=== PATIENT | male | born 1945 | race Caucasian/White ===

== ENCOUNTER 2018-09-22 11:30 | Inpatient (IN) | payer MEDICARE, OTHER ==
--- NOTE | 2018-09-22 11:59 | ER Document Report ---
ED Dizziness/Weakness - General Chief Complaint: General Weakness Stated Complaint: FALL/WEAKNESS Time Seen by Provider: 09/22/18 11:46 Mode of Arrival: Medic Information source: Patient, Relative TRAVEL OUTSIDE OF THE [place] IN LAST 30 DAYS: No - HPI Patient complains to provider of: Weakness Onset: Other - This 73-year-old male with no known medical problems the presents for evaluation of profound weakness in the setting of drinking a pint of bourbon every day for the last 3 months after his . His family friend had last seen him around [facility] at which time he was able to ambulate but he has been unable to get up for what he believes his last month as he continues to drink. Says that he wants help and stop drinking. He is never tried to drink before and had been abstinent of alcohol for many many years, he is a daily cigarette smoker and denies any other drug use. Denies any other injuries recent falls or trauma. Has not been seen by in a long time. - Related Data Allergies/Adverse Reactions: No Known Allergies Allergy (Unverified 09/22/18 11:33) Past Medical History - General Information source: Patient, Relative Cannot obtain history due to: Altered mental status - Social History Smoking Status: Current Every Day Smoker Smoking Education Provided: Yes Frequency of alcohol use: Heavy Drug Abuse: None Lives with: Alone Family History: None Review of Systems - Review of Systems -: Yes All other systems reviewed and negative Physical Exam - Vital signs Vitals: Temp Pulse Resp BP Pulse Ox 98.1 F 102 H 28 H 78/46 L 93 09/22/18 11:36 09/22/18 11:36 09/22/18 11:36 09/22/18 11:36 09/22/18 11:36 - General General appearance: Lethargic In distress: Moderate - HEENT Head: Normocephalic Eyes: Normal Conjunctiva: Normal Cornea: Normal Extraocular movements intact: Yes Eyelashes: Normal Pupils: PERRL - Respiratory Respiratory status: No respiratory distress Chest status: Nontender Breath sounds: Normal Chest palpation: Normal - Cardiovascular Rhythm: Regular Heart sounds: Normal auscultation Murmur: No - Abdominal Inspection: Normal Distension: No distension Tenderness: Nontender - Genitourinary Tenderness: Other - Marked erythema and denuded skin over the scrotum Scrotum: Redness - Back Back: Normal - Extremities General upper extremity: Other - Frail diminished extremities General lower extremity: Other - Frail wasted musculature over the extremities - Neurological Neuro grossly intact: Yes Cognition: Normal, Confused Orientation: AAOx4 [place] Coma Scale Eye Opening: Spontaneous [place] Coma Scale Verbal: Confused [place] Coma Scale Motor: Obeys Commands [place] Coma Scale Total: 14 Speech: Normal Cranial nerves: Normal Cerebellar coordination: Normal - Psychological Associated symptoms: Normal affect, Normal mood Course - Re-evaluation Re-evalutation: This is 73-year-old man the presents for evaluation of profound weakness in the setting of daily alcohol use. On examination he is profoundly wasted, his extremities are frail, diminutive and weak. He has almost entire loss of the scan underlying his scrotum as well as his b uttocks and hips. On arrival he is tachycardic with a blood pressure which is marginal. He is a daily alcoholic, his most recent drink was a couple of hours ago. I do not believe that he is currently demonstrating signs of acute withdrawal. Because of his current presentation have concern for rhabdomyolysis, sepsis, dehydration, among other issues. We will plan for broad workup. Patient's labs demonstrate what appears to be alcoholic hepatitis with an elevated T bili as well as other LFTs. Patient also has a markedly elevated BUN and elevated lactate, his lactate is likely elevated as a result of his liver injury. He is received 2 L of fluids with improvement in his blood pressure, he does not have an obvious infection at this time as such I do not believe this represents sepsis despite the elevated lactate and elevated heart rate. Have deferred antibiotics at this time. Reassess this patient again, he is caked in stool, his stool is runny. He is slightly confused. He desires to abstain from alcohol moving forward and says that if he is able to achieve sobriety that he will abstain from alcohol entirely moving forward. Believe that he will likely require close monitoring for probable administration of benzodiazepine. We will initiate treatment with vitamins. Have contacted on-call hospitalist for such he who agrees to admit this patient, will plan to admit patient to the [facility] for continued monitoring reassessment administration of fluids. Have drawn a repeated lactate. - Vital Signs Vital signs: Temp Pulse Resp BP Pulse Ox 98.1 F 102 H 20 107/65 94 09/22/18 11:36 09/22/18 11:36 09/22/18 14:00 09/22/18 14:00 09/22/18 13:02 - Laboratory Result Diagrams: 09/22/18 12:30 09/22/18 12:30 Laboratory results interpreted by me: 09/22/18 09/22/18 09/22/18 11:52 12:10 12:30 MCV 99 H MCH 34.0 H RDW 15.4 H Plt Count 91 L Seg Neutrophils % 80.3 H Lymphocytes % 9.6 L Chloride Carbon Dioxide BUN Glucose POC Glucose 131 H Lactic Acid Total Bilirubin Direct Bilirubin AST ALT Alkaline Phosphatase Urine Protein 100 H Urine Ketones 20 H Urine Blood SMALL H Urine Bilirubin SMALL H Urine Urobilinogen 4.0 H 09/22/18 09/22/18 12:30 12:30 MCV MCH RDW Plt Count Seg Neutrophils % Lymphocytes % Chloride 97 L Carbon Dioxide 20 L BUN 40 H Glucose 128 H POC Glucose Lactic Acid 3.3 H Total Bilirubin 7.3 H Direct Bilirubin 5.5 H AST 786 H ALT 235 H Alkaline Phosphatase 218 H Urine Protein Urine Ketones Urine Blood Urine Bilirubin Urine Urobilinogen Critical Care Note - Critical Care Note Total time excluding time spent on procedures (mins): 35 Discharge - Discharge Clinical Impression: Dehydration, Alcoholism, Confusion, Weakness Malnutrition Qualifiers: Malnutrition type: unspecified type Qualified Code(s): E46 - Unspecified protein-calorie malnutrition Condition: Stable Disposition: ADMITTED INPATIENT Admitting Provider: Hospitalist Unit Admitted: [facility]
[2018-09-22] MEDS: NORMAL SALINE 1000 ML 1,000 ML IV PRN ×2 (12:10→13:11)
[2018-09-22 12:36] LABS: APPEARANCE,URINE CLEAR; BILIRUBIN,URINE SMALL (NEGATIVE); COLOR,URINE AMBER; GLUCOSE, URINE NEGATIVE (NEGATIVE); KETONES,URINE 20 mg/dL (NEGATIVE); LEUKOCYTE ESTERASE,URINE NEGATIVE (NEGATIVE); NITRITE,URINE NEGATIVE (NEGATIVE); PROTEIN,URINE 100 mg/dL (NEGATIVE); URINE SPECIFIC GRAVITY 1.025
[2018-09-22 13:01] LABS: VENOUS BLOOD BASE EXCESS -1.7 mmol/L; VENOUS BLOOD HCO3 23.7 mmol/L (20-32); VENOUS BLOOD PCO2 42.5 mmHg (35-63); VENOUS BLOOD PH 7.36 (7.30-7.42)
[2018-09-22 13:03] LABS: ABSOLUTE LYMPHOCYTES (AUTO) 0.8 10^3/uL (0.5-4.7); ABSOLUTE MONOCYTES (AUTO) 0.8 10^3/uL (0.1-1.4); ABSOLUTE NEUT (AUTO) 6.6 10^3/uL (1.7-8.2); BASOPHILS % (AUTO) 0.3 % (0-2); HEMATOCRIT 43.1 % (37.9-51.0); HEMOGLOBIN 14.9 g/dL (13.5-17.0); LYMPHOCYTES % (AUTO) 9.6 % (13-45); MEAN CORPUSCULAR HGB CONC 34.5 g/dL (32.0-36.0); MEAN CORPUSCULAR VOLUME 99 fl (80-97); MONOCYTES % (AUTO) 9.8 % (3-13); RED BLOOD COUNT 4.37 10^6/uL (4.35-5.55); RED CELL DISTRIBUTION WIDTH 15.4 % (11.5-14.0); SEGMENTED NEUTROPHILS % (AUTO) 80.3 % (42-78); TOTAL CELLS COUNTED % (AUTO) 100 %; WHITE BLOOD COUNT 8.2 10^3/uL (4.0-10.5)
[2018-09-22 13:07] LABS: PROTHROMBIN TIME 12.6 SEC (11.4-15.4)
[2018-09-22 13:18] LABS: ALANINE AMINOTRANSFERASE 235 U/L (21-72); ALBUMIN 3.5 g/dL (3.5-5.0); ALKALINE PHOSPHATASE 218 U/L (38-126); BILIRUBIN,DIRECT 5.5 mg/dL (0.0-0.4); BILIRUBIN,TOTAL 7.3 mg/dL (0.2-1.3); BLOOD UREA NITROGEN 40 mg/dL (7-20); CALCIUM 8.5 mg/dL (8.4-10.2); CARBON DIOXIDE 20 mmol/L (22-30); CHLORIDE 97 mmol/L (98-107); CREATINE KINASE 147 U/L (55-170); GLUCOSE 128 mg/dL (75-110); POTASSIUM 4.4 mmol/L (3.6-5.0); TOTAL PROTEIN 6.7 g/dL (6.3-8.2)
[2018-09-22 13:26] LABS: PLATELET COUNT 91 10^3/uL (150-450)
[2018-09-22 13:31] LABS: ASPARTATE AMINO TRANSFERASE 786 U/L (17-59)
--- NOTE | 2018-09-22 13:41 | RADIOLOGY REPORT (SQ) ---
EXAM DESCRIPTION: CHEST SINGLE VIEW COMPLETED DATE/TIME: 09/22/2018 1:13 pm REASON FOR STUDY: possible sepsis COMPARISON: None. EXAM PARAMETERS: NUMBER OF VIEWS: One view. TECHNIQUE: Single frontal radiographic view of the chest acquired. RADIATION DOSE: NA LIMITATIONS: None. FINDINGS: LUNGS AND PLEURA: Lungs are hyperinflated and hyperlucent from obstructive disease. Chron ic appearing blunting right lateral costophrenic sulcus. No acute infiltrates. No pleural effusion. No pneumothorax. MEDIASTINUM AND HILAR STRUCTURES: No masses. Contour normal. HEART AND VASCULAR STRUCTURES: Heart normal in size. Normal vasculature. BONES: No acute findings. HARDWARE: None in the chest. OTHER: No other significant finding. IMPRESSION: Obstructive lung disease. No acute findings TECHNICAL DOCUMENTATION: JOB ID: [id number] [employer]- All Rights Reserved Reading location - IP/workstation name: [facility]-[email or web address]
[2018-09-22 14:37] LABS: ANION GAP 20 (5-19)
[2018-09-22] MEDS ORDERED: ONDANSETRON 4 MG TAB.RAPDIS PO PRN (15:10)
[2018-09-22] MEDS ORDERED: LORAZEPAM INJ 2 MG/1 ML VIAL IV ONE (15:19)
[2018-09-22] MEDS ORDERED: ENOXAPARIN SODIUM INJ 30 MG/0.3 ML DISP.SYRIN SUBCUT ONE (16:00)
[2018-09-22] MEDS: DEXTROSE 5%-NORMAL SALINE 1,000 ML IV PRN (16:17)
--- NOTE | 2018-09-22 17:21 | EKG REPORT ---
SEVERITY:- NORMAL ECG - SINUS RHYTHM : Confirmed by: Main Delcid MD 22-Sep-2018 17:21:03
[2018-09-22] MEDS ORDERED: NORMAL SALINE 1000 ML 1,000 ML with POTASSIUM CHLORIDE 20 MEQ, MAGNESIUM SULFATE 8 MEQ,... IV SCH ×5 (18:00)
--- NOTE | 2018-09-22 18:08 | PDOC H&P ---
History of Present Illness Admission Date/PCP: 09/22/18 15:14 ARMINDA TOM MD Patient complains of: Profound weakness History of Present Illness: TRACIE ETIENNE is a 73 year old male whose only medical history is chronic obstructive pulmonary disease. He is currently a smoker. He has an albuterol inhaler for as needed use. Otherwise he is on no medications and has no other past medical history. His in April of this year. He has no children. His parents are and he has no surviving siblings. To cope he started drinking heavily. He drinks approximately 1/5 of whiskey daily. He reports that he has been getting weaker. He has lost weight. In fact when his friend came over to visit he was not even strong enough to get off the couch. He does not think he has had anything to eat in 4-5 days. Past Medical History Cardiac Medical History: Reports: None Pulmonary Medical History: Reports: Chronic Obstructive Pulmonary Disease (COPD) EENT Medical History: Reports: None Neurological Medical History: Reports: None Endocrine Medical History: Reports: None Renal/ Medical History: Reports: None Malignancy Medical History: Reports: None GI Medical History: Reports: None Musculoskeltal Medical History: Reports: None Skin Medical History: Reports: None Psychiatric Medical History: Reports: Tobacco Dependency Traumatic Medical History: Reports: None Hematology: Reports: None Infectious Medical History: Reports: None Past Surgical History Past Surgical History: Reports: None Social History Information Source: Patient Lives with: Alone Smoking Status: Current Every Day Smoker Frequency of Alcohol Use: Heavy Amount of Alcoholic Beverages Per Day: 1/5 of bourbon Hx Recreational Drug Use: No Drugs: None Hx Prescription Drug Abuse: No Past Social History Note: All of the patient's siblings have . He has no children and his in April. Family History Family History: CVA Parental Family History Reviewed: Yes - Father of a stroke mother natural causes Children Family History Reviewed: NA - He has no children Sibling(s) Family History Reviewed.: Yes - All 6 of his siblings have . He does not know the details of their medical history. Medication/Allergy Home Medications: Albuterol Sulfate [Proair HFA Inhalation Aerosol 8.5 gm MDI] 2 puff IH Q4HP PRN 09/22/18 Allergies/Adverse Reactions: No Known Allergies Allergy (Unverified 09/22/18 11:33) Review of Systems Constitutional: PRESENT: as per HPI, anorexia, weight loss. ABSENT: chills, fever(s), headache(s) Eyes: ABSENT: visual disturbances Ears: ABSENT: hearing changes Nose, Mouth, and Throat: ABSENT: headache(s), mouth pain, sore throat, vertigo Cardiovascular: ABSENT: chest pain, edema, orthropnea, palpitations Respiratory: ABSENT: dyspnea, hemoptysis, sputum Gastrointestinal: PRESENT: abdominal pain, diarrhea. ABSENT: bloating, coffee ground emesis, heartburn, hematochezia, melena, nausea, vomiting Genitourinary: ABSENT: dysuria, hematuria Musculoskeletal: ABSENT: back pain, joint swelling Integumentary: ABSENT: lesions, rash Neurological: PRESENT: weakness - Profound. ABSENT: abnormal speech, confusion Psychiatric: PRESENT: depression - Since his . Unfortunately he has not sought any treatment. Endocrine: ABSENT: cold intolerance, heat intolerance, polydipsia, polyphagia, polyuria Hematologic/Lymphatic: ABSENT: as per HPI, easy bleeding, easy bruising, lymphadenopathy, other Allergic/Immunologic: ABSENT: seasonal rhinorrhea Physical Exam Vital Signs: Temp Pulse Resp BP Pulse Ox 98.2 F 102 H 16 112/67 96 09/22/18 15:00 09/22/18 11:36 09/22/18 17:00 09/22/18 17:00 09/22/18 16:00 Intake & Output 09/21/18 09/22/18 09/23/18 06:59 06:59 06:59 Intake Total 1999 Balance 2000 Weight 40.37 kg General appearance: PRESENT: no acute distress, cooperative, thin, well- developed Head exam: PRESENT: atraumatic, normocephalic Eye exam: PRESENT: conjunctiva pale, EOMI, scleral icterus Ear exam: PRESENT: normal external ear exam Mouth exam: PRESENT: dry mucosa, neck supple, tongue midline Teeth exam: PRESENT: poor dentation Neck exam: ABSENT: carotid bruit, JVD, lymphadenopathy Respiratory exam: PRESENT: clear to auscultation kody, symmetrical, unlabored. ABSENT: accessory muscle use, rales, rhonchi, wheezes Cardiovascular exam: PRESENT: RRR, +S1, +S2 Pulses: PRESENT: normal radial pulses, normal dorsalis pedis pul Vascular exam: ABSENT: pallor GI/Abdominal exam: PRESENT: normal bowel sounds, soft, tenderness - Right upper quadrant. ABSENT: distended, guarding Rectal exam: PRESENT: deferred Extremities exam: ABSENT: pedal edema Musculoskeletal exam: PRESENT: other - Marked loss of muscle mass Neurological exam: PRESENT: alert, awake, oriented to person, oriented to place, oriented to time, oriented to situation, CN II-XII grossly intact Psychiatric exam: PRESENT: appropriate affect. ABSENT: agitated, anxious, unusual affect Focused psych exam: ABSENT: restlessness Skin exam: PRESENT: jaundice Results Laboratory Results: 09/22/18 12:30 09/22/18 12:30 09/22/18 09/22/18 09/22/18 12:10 12:30 12:30 WBC 8.2 RBC 4.37 Hgb 14.9 Hct 43.1 MCV 99 H MCH 34.0 H MCHC 34.5 RDW 15.4 H Plt Count 91 L Seg Neutrophils % 80.3 H Lymphocytes % 9.6 L Monocytes % 9.8 Eosinophils % 0.0 Basophils % 0.3 Absolute Neutrophils 6.6 Absolute Lymphocytes 0.8 Absolute Monocytes 0.8 Absolute Eosinophils 0.0 Absolute Basophils 0.0 VBG pH VBG pCO2 VBG HCO3 VBG Base Excess Sodium 137.0 Potassium 4.4 Chloride 97 L Carbon Dioxide 20 L Anion Gap 20 H BUN 40 H Creatinine 0.75 Est GFR ( Amer) > 60 Est GFR (Non-Af Amer) > 60 Glucose 128 H Lactic Acid Calcium 8.5 Total Bilirubin 7.3 H AST 786 H ALT 235 H Alkaline Phosphatase 218 H Total Protein 6.7 Albumin 3.5 Lipase Urine Color JESSICA Urine Appearance CLEAR Urine pH 6.0 Ur Specific [place] 1.025 Urine Protein 100 H Urine Glucose (UA) NEGATIVE Urine Ketones 20 H Urine Blood SMALL H Urine Nitrite NEGATIVE Ur Leukocyte Esterase NEGATIVE Urine WBC (Auto) 0 Urine RBC (Auto) 2 09/22/18 09/22/18 09/22/18 12:30 12:30 12:30 WBC RBC Hgb Hct MCV MCH MCHC RDW Plt Count Seg Neutrophils % Lymphocytes % Monocytes % Eosinophils % Basophils % Absolute Neutrophils Absolute Lymphocytes Absolute Monocytes Absolute Eosinophils Absolute Basophils VBG pH 7.36 VBG pCO2 42.5 VBG HCO3 23.7 VBG Base Excess -1.7 Sodium Potassium Chloride Carbon Dioxide Anion Gap BUN Creatinine Est GFR ( Amer) Est GFR (Non-Af Amer) Glucose Lactic Acid 3.3 H Calcium Total Bilirubin AST ALT Alkaline Phosphatase Total Protein Albumin Lipase 356.8 H Urine Color Urine Appearance Urine pH Ur Specific [place] Urine Protein Urine Glucose (UA) Urine Ketones Urine Blood Urine Nitrite Ur Leukocyte Esterase Urine WBC (Auto) Urine RBC (Auto) 09/22/18 16:47 WBC RBC Hgb Hct MCV MCH MCHC RDW Plt Count Seg Neutrophils % Lymphocytes % Monocytes % Eosinophils % Basophils % Absolute Neutrophils Absolute Lymphocytes Absolute Monocytes Absolute Eosinophils Absolute Basophils VBG pH VBG pCO2 VBG HCO3 VBG Base Excess Sodium Potassium Chloride Carbon Dioxide Anion Gap BUN Creatinine Est GFR ( Amer) Est GFR (Non-Af Amer) Glucose Lactic Acid 1.7 Calcium Total Bilirubin AST ALT Alkaline Phosphatase Total Protein Albumin Lipase Urine Color Urine Appearance Urine pH Ur Specific [place] Urine Protein Urine Glucose (UA) Urine Ketones Urine Blood Urine Nitrite Ur Leukocyte Esterase Urine WBC (Auto) Urine RBC (Auto) 09/22/18 12:30 Creatine Kinase 147 Impressions: Chest X-Ray 09/22/18 11:59 IMPRESSION: Obstructive lung disease. No acute findings Assessment & Plan - Diagnosis (1) Hepatitis, alcoholic Qualifiers: Ascites presence: without ascites Qualified Code(s): K70.10 - Alcoholic hepatitis without ascites Is this a current diagnosis for this admission?: Yes Plan: The patient has been drinking heavily since his . I will start him on the alcohol withdrawal protocol. He is also been very dehydrated and has not eaten. Once he is through this acute episode he would benefit from an antidepressant medication as well as counseling. (2) Dehydration Is this a current diagnosis for this admission?: Yes Plan: Initially the patient was hypotensive and tachycardic. He received several liters of fluid and appears to be stable. I will continue maintenance IV fluid. (3) Malnutrition Qualifiers: Malnutrition type: protein-calorie malnutrition Protein-calorie malnutrition severity: severe Qualified Code(s): E43 - Unspecified severe protein-calorie malnutrition Is this a current diagnosis for this admission?: Yes Plan: The patient's BMI is only 13.5. He is cachectic and displays marked loss of muscle mass. I will have the dietitian see the patient for recommendations for his diet. Because of his poor dentition we will start on soft mechanical diet. (5) Nicotine addiction Qualifiers: Nicotine product type: cigarettes Substance use status: uncomplicated Qualified Code(s): F17.210 - Nicotine dependence, cigarettes, uncomplicated Is this a current diagnosis for this admission?: Yes Plan: The patient currently smokes 1/2 pack of cigarettes daily. He does have mild history of chronic obstructive pulmonary disease however he reports that he has not needed his albuterol inhaler for some time. I will order a nicotine patch for the patient. - Time Time Spent: 50 to 70 Minutes Smoking Cessation Education: 3 to 10 minutes Anticipated discharge: Home - Inpatient Certification Based on my medical assessment, after consideration of the patient's comorbidities, presenting symptoms, or acuity I expect that the services needed warrant INPATIENT care.: Yes I certify that my determination is in accordance with my understanding of Medicare's requirements for reasonable and necessary INPATIENT services [42 CFR 412.3e].: Yes Medical Necessity: Need Close Monitoring Due to Risk of Patient Decompensation, Need For IV Fluids, Need for Nebulizer Therapy and Monitoring of Response, Risk of Complication if Not Cared For in Hospital Post Hospital Care: D/C [facility] [place] Documentation
[2018-09-22] MEDS ORDERED: MORPHINE SULFATE 10 MG/ML INJ IV ONE (19:00)
[2018-09-22] MEDS ORDERED: MORPHINE SULFATE 10 MG/ML INJ ONE (19:01)
[2018-09-22] MEDS: NICOTINE 14 MG/24 HR PATCH.TD24 TD SCH (20:48)
[2018-09-22] MEDS: LORAZEPAM 1 MG TABLET PO SCH (20:49)
[2018-09-22] MEDS ORDERED: FOLIC ACID 1 MG TABLET PO SCH (21:00)
[2018-09-22] MEDS ORDERED: DIAZEPAM 5 MG TABLET PO SCH (22:00)
[2018-09-22] MEDS ORDERED: [UNRECOGNIZED DRUG - REMARK] IV SCH ×4 (22:00)
[2018-09-23] MEDS: LORAZEPAM 1 MG TABLET PO SCH ×2 (02:30→09:04)
[2018-09-23] MEDS ORDERED: VANCOMYCIN HCL INJ 1000 MG VIAL IV PRN (03:35)
[2018-09-23] MEDS ORDERED: VANCOMYCIN HCL INJ 1000 MG VIAL ONE (03:50)
[2018-09-23] MEDS ORDERED: VANCOMYCIN HCL 1,000 MG in DEXTROSE 5%-WATER 250 ML IV ONE (04:00)
[2018-09-23 06:03] LABS: ABSOLUTE LYMPHOCYTES (AUTO) 0.8 10^3/uL (0.5-4.7); ABSOLUTE MONOCYTES (AUTO) 0.7 10^3/uL (0.1-1.4); ABSOLUTE NEUT (AUTO) 5.3 10^3/uL (1.7-8.2); ALANINE AMINOTRANSFERASE 178 U/L (21-72); ALBUMIN 2.6 g/dL (3.5-5.0); ALKALINE PHOSPHATASE 158 U/L (38-126); ANION GAP 13 (5-19); ASPARTATE AMINO TRANSFERASE 598 U/L (17-59); BASOPHILS % (AUTO) 0.3 % (0-2); BILIRUBIN,DIRECT 4.5 mg/dL (0.0-0.4); BLOOD UREA NITROGEN 28 mg/dL (7-20); CALCIUM 7.5 mg/dL (8.4-10.2); CARBON DIOXIDE 19 mmol/L (22-30); CHLORIDE 107 mmol/L (98-107); CHOLESTEROL 166.69 mg/dL (0-200); GLUCOSE 130 mg/dL (75-110); HEMATOCRIT 35.7 % (37.9-51.0); LIPASE 748.6 U/L (23-300); LYMPHOCYTES % (AUTO) 12.1 % (13-45); MEAN CORPUSCULAR HEMOGLOBIN 34.1 pg (27.0-33.4); MEAN CORPUSCULAR HGB CONC 34.8 g/dL (32.0-36.0); MEAN CORPUSCULAR VOLUME 98 fl (80-97); MONOCYTES % (AUTO) 10.2 % (3-13); PHOSPHORUS 1.8 mg/dL (2.5-4.5); POTASSIUM 3.7 mmol/L (3.6-5.0); RED BLOOD COUNT 3.64 10^6/uL (4.35-5.55); RED CELL DISTRIBUTION WIDTH 15.3 % (11.5-14.0); SEGMENTED NEUTROPHILS % (AUTO) 77.4 % (42-78); SODIUM 139.4 mmol/L (137-145); TOTAL CELLS COUNTED % (AUTO) 100 %; TOTAL PROTEIN 5.2 g/dL (6.3-8.2); TRIGLYCERIDES 262 mg/dL (<150); WHITE BLOOD COUNT 6.8 10^3/uL (4.0-10.5)
[2018-09-23 06:13] LABS: DIRECT LDL 109 mg/dL (<100)
[2018-09-23 06:18] LABS: VLDL CHOLESTEROL 52.4 mg/dL (10-31)
[2018-09-23 06:28] LABS: PLATELET COUNT 73 10^3/uL (150-450)
[2018-09-23 06:38] LABS: HEMOGLOBIN 12.4 g/dL (13.5-17.0)
[2018-09-23] MEDS: SILVER SULFADIAZINE 1% CREAM 400 GM TP PRN ×2 (09:57→17:50)
[2018-09-23] MEDS: NICOTINE 14 MG/24 HR PATCH.TD24 TD SCH (09:57)
[2018-09-23] MEDS: LIDOCAINE 4% TOPICAL SOLN 50 ML TOP PRN ×2 (09:59→17:59)
[2018-09-23] MEDS: CLOTRIMAZOLE/BETAMETHASONE DIP CREAM 15 GM TOP SCH ×2 (09:59→17:50)
[2018-09-23] MEDS ORDERED: ENOXAPARIN SODIUM INJ 30 MG/0.3 ML DISP.SYRIN SUBCUT SCH (10:00)
[2018-09-23] MEDS ORDERED: VANCOMYCIN HCL 1,000 MG in DEXTROSE 5%-WATER 250 ML IV SCH (10:00)
[2018-09-23] MEDS: DEXTROSE 5%-NORMAL SALINE 1,000 ML IV PRN (10:20)
[2018-09-23] MEDS ORDERED: DEXTROSE 5%-NORMAL SALINE 1,000 ML IV PRN (12:18)
[2018-09-23] MEDS ORDERED: LORAZEPAM 1 MG TABLET PO PRN (12:22)
--- NOTE | 2018-09-23 12:54 | PDOC PROGRESS REPORT ---
Subjective Progress Note for:: 09/23/18 Subjective:: Patient is somnolent today. Reason For Visit: ACUTE ALCOHOLIC HEPATITIS,DEHYDRATION Physical Exam Vital Signs: Temp Pulse Resp BP Pulse Ox 97.9 F 88 16 165/81 H 91 L 09/23/18 07:30 09/23/18 12:32 09/23/18 12:32 09/23/18 07:30 09/23/18 12:32 Intake & Output 09/22/18 09/23/18 09/24/18 06:59 06:59 06:59 Intake Total 3830 431.2 Output Total 500 650 Balance 3330 -218.8 Weight 45.4 kg General appearance: PRESENT: no acute distress, thin, other - Somnolent. ABSENT: well-nourished Head exam: PRESENT: atraumatic, normocephalic Respiratory exam: PRESENT: clear to auscultation kody - Anteriorly, symmetrical, unlabored. ABSENT: accessory muscle use, rales, rhonchi, wheezes Cardiovascular exam: PRESENT: RRR, +S1, +S2 GI/Abdominal exam: PRESENT: hypoactive bowel sounds, soft. ABSENT: distended, tenderness Musculoskeletal exam: PRESENT: other - Decreased muscle mass Neurological exam: ABSENT: awake Psychiatric exam: PRESENT: other - Somnolent Skin exam: PRESENT: pallor Results Laboratory Results: 09/23/18 05:11 09/23/18 05:11 09/22/18 09/22/18 09/22/18 12:30 12:30 12:30 WBC 8.2 RBC 4.37 Hgb 14.9 Hct 43.1 MCV 99 H MCH 34.0 H MCHC 34.5 RDW 15.4 H Plt Count 91 L Seg Neutrophils % 80.3 H Lymphocytes % 9.6 L Monocytes % 9.8 Eosinophils % 0.0 Basophils % 0.3 Absolute Neutrophils 6.6 Absolute Lymphocytes 0.8 Absolute Monocytes 0.8 Absolute Eosinophils 0.0 Absolute Basophils 0.0 VBG pH VBG pCO2 VBG HCO3 VBG Base Excess Sodium 137.0 Potassium 4.4 Chloride 97 L Carbon Dioxide 20 L Anion Gap 20 H BUN 40 H Creatinine 0.75 Est GFR ( Amer) > 60 Est GFR (Non-Af Amer) > 60 Glucose 128 H Lactic Acid 3.3 H Calcium 8.5 Phosphorus Magnesium Total Bilirubin 7.3 H AST 786 H ALT 235 H Alkaline Phosphatase 218 H Ammonia Total Protein 6.7 Albumin 3.5 Triglycerides Cholesterol LDL Cholesterol Direct VLDL Cholesterol HDL Cholesterol Lipase 09/22/18 09/22/18 09/22/18 12:30 12:30 12:30 WBC RBC Hgb Hct MCV MCH MCHC RDW Plt Count Seg Neutrophils % Lymphocytes % Monocytes % Eosinophils % Basophils % Absolute Neutrophils Absolute Lymphocytes Absolute Monocytes Absolute Eosinophils Absolute Basophils VBG pH 7.36 VBG pCO2 42.5 VBG HCO3 23.7 VBG Base Excess -1.7 Sodium Potassium Chloride Carbon Dioxide Anion Gap BUN Creatinine Est GFR ( Amer) Est GFR (Non-Af Amer) Glucose Lactic Acid Cancelled Calcium Phosphorus Magnesium Total Bilirubin AST ALT Alkaline Phosphatase Ammonia Total Protein Albumin Triglycerides Cholesterol LDL Cholesterol Direct VLDL Cholesterol HDL Cholesterol Lipase 356.8 H 09/22/18 09/23/18 09/23/18 16:47 05:11 05:11 WBC 6.8 RBC 3.64 L Hgb 12.4 L D Hct 35.7 L MCV 98 H MCH 34.1 H MCHC 34.8 RDW 15.3 H Plt Count 73 L Seg Neutrophils % 77.4 Lymphocytes % 12.1 L Monocytes % 10.2 Eosinophils % 0.0 Basophils % 0.3 Absolute Neutrophils 5.3 Absolute Lymphocytes 0.8 Absolute Monocytes 0.7 Absolute Eosinophils 0.0 Absolute Basophils 0.0 VBG pH VBG pCO2 VBG HCO3 VBG Base Excess Sodium 139.4 Potassium 3.7 Chloride 107 Carbon Dioxide 19 L Anion Gap 13 BUN 28 H Creatinine 0.49 L Est GFR ( Amer) > 60 Est GFR (Non-Af Amer) > 60 Glucose 130 H Lactic Acid 1.7 Calcium 7.5 L Phosphorus 1.8 L Magnesium 2.3 Total Bilirubin 6.0 H AST 598 H ALT 178 H Alkaline Phosphatase 158 H Ammonia Total Protein 5.2 L Albumin 2.6 L Triglycerides 262 H Cholesterol 166.69 LDL Cholesterol Direct 109 H VLDL Cholesterol 52.4 H HDL Cholesterol 26 L Lipase 748.6 H 09/23/18 05:11 WBC RBC Hgb Hct MCV MCH MCHC RDW Plt Count Seg Neutrophils % Lymphocytes % Monocytes % Eosinophils % Basophils % Absolute Neutrophils Absolute Lymphocytes Absolute Monocytes Absolute Eosinophils Absolute Basophils VBG pH VBG pCO2 VBG HCO3 VBG Base Excess Sodium Potassium Chloride Carbon Dioxide Anion Gap BUN Creatinine Est GFR ( Amer) Est GFR (Non-Af Amer) Glucose Lactic Acid Calcium Phosphorus Magnesium Total Bilirubin AST ALT Alkaline Phosphatase Ammonia 33.6 H Total Protein Albumin Triglycerides Cholesterol LDL Cholesterol Direct VLDL Cholesterol HDL Cholesterol Lipase 09/22/18 12:30 Creatine Kinase 147 Impressions: Chest X-Ray 09/22/18 11:59 IMPRESSION: Obstructive lung disease. No acute findings Assessment & Plan - Diagnosis (1) Hepatitis, alcoholic Qualifiers: Ascites presence: without ascites Qualified Code(s): K70.10 - Alcoholic he patitis without ascites Is this a current diagnosis for this admission?: Yes Plan: Continue to monitor liver enzymes (2) Dehydration Is this a current diagnosis for this admission?: Yes Plan: Continue IV fluids (3) Malnutrition Qualifiers: Malnutrition type: protein-calorie malnutrition Protein-calorie malnutritio n severity: severe Qualified Code(s): E43 - Unspecified severe protein-calorie malnutrition Is this a current diagnosis for this admission?: Yes Plan: Continue IV fluids with dextrose. Continue to offer food. (4) Weakness Is this a current diagnosis for this admission?: Yes Plan: Physical therapy when appropriate (5) Nicotine addiction Qualifiers: Nicotine product type: cigarettes Substance use status: uncomplicated Qualified Code(s): F17.210 - Nicotine dependence, cigarettes, uncomplicated Is this a current diagnosis for this admission?: Yes Plan: Nicotine patch (6) Acute pancreatitis Is this a current diagnosis for this admission?: Yes Plan: Monitor lipase. Change diet to clear liquids. If lipase increases then I will make patient n.p.o. (7) Alcoholism Is this a current diagnosis for this admission?: Yes Plan: The scheduled Ativan is too much for this patient. I have discontinued the protocol and added as needed doses. - Time Time Spent with patient: 15-24 minutes Medications reviewed and adjusted accordingly: Yes
[2018-09-23] MEDS: CEFAZOLIN SODIUM 2 GM in DEXTROSE 5%-WATER 100 ML IV SCH (17:49)
[2018-09-23] MEDS ORDERED: CEFAZOLIN 2 GM/D5W RTU 2 GM/50 ML RTUPB IV SCH (18:00)
[2018-09-23] MEDS: [UNRECOGNIZED DRUG - REMARK] IV SCH ×4 (21:33)
[2018-09-23] MEDS ORDERED: LORAZEPAM 1 MG TABLET PO SCH (22:01)
[2018-09-24] MEDS: CEFAZOLIN SODIUM 2 GM in DEXTROSE 5%-WATER 100 ML IV SCH ×4 (00:19→17:39)
[2018-09-24 06:20] LABS: HEMATOCRIT 34.5 % (37.9-51.0); HEMOGLOBIN 11.9 g/dL (13.5-17.0); MEAN CORPUSCULAR HEMOGLOBIN 33.6 pg (27.0-33.4); MEAN CORPUSCULAR HGB CONC 34.5 g/dL (32.0-36.0); MEAN CORPUSCULAR VOLUME 97 fl (80-97); RED BLOOD COUNT 3.54 10^6/uL (4.35-5.55); WHITE BLOOD COUNT 3.1 10^3/uL (4.0-10.5)
[2018-09-24 06:27] LABS: PLATELET COUNT 61 10^3/uL (150-450)
[2018-09-24 06:46] LABS: ALANINE AMINOTRANSFERASE 137 U/L (21-72); ALBUMIN 2.3 g/dL (3.5-5.0); ALKALINE PHOSPHATASE 159 U/L (38-126); ANION GAP 6 (5-19); ASPARTATE AMINO TRANSFERASE 458 U/L (17-59); BILIRUBIN,DIRECT 2.7 mg/dL (0.0-0.4); BILIRUBIN,TOTAL 3.6 mg/dL (0.2-1.3); BLOOD UREA NITROGEN 13 mg/dL (7-20); CALCIUM 7.3 mg/dL (8.4-10.2); CARBON DIOXIDE 28 mmol/L (22-30); CHLORIDE 104 mmol/L (98-107); GLUCOSE 109 mg/dL (75-110); LIPASE 544.2 U/L (23-300); PHOSPHORUS 1.3 mg/dL (2.5-4.5); SODIUM 137.5 mmol/L (137-145); TOTAL PROTEIN 4.9 g/dL (6.3-8.2)
[2018-09-24 06:51] LABS: ABSOLUTE LYMPHOCYTES# (MANUAL) 0.8 10^3/uL (0.5-4.7); ABSOLUTE MONOCYTES # (MANUAL) 0.4 10^3/uL (0.1-1.4); ABSOLUTE NEUTROPHILS# (MANUAL) 1.9 10^3/uL (1.7-8.2); BASOPHILS % (MANUAL) 0 % (0-2); EOSINOPHILS % (MANUAL) 0 % (0-6); LYMPHOCYTES % (MANUAL) 25 % (13-45); MONOCYTES % (MANUAL) 13 % (3-13); NUCLEATED RED BLOOD CELLS 1 /100 WBC ({null, 0}); SEGMENTED NEUTROPHILS % (MAN) 62 % (42-78); TOTAL CELLS COUNTED 100
[2018-09-24 06:53] LABS: POTASSIUM 2.8 mmol/L (3.6-5.0)
[2018-09-24 06:54] LABS: PLATELET COMMENT DECREASED; RBC MORPHOLOGY COMMENT NORMO-CYTIC/CHROMIC
[2018-09-24] MEDS ORDERED: POTASSI CL 20 MEQ/50 ML RIDER 20 MEQ/50 ML RTUPB IV ONE (08:47)
[2018-09-24] MEDS: POTASSI CL 20 MEQ/50 ML RIDER 20 MEQ/50 ML RTUPB IV SCH ×2 (08:54→10:56)
[2018-09-24] MEDS: ACETAMINOPHEN 325 MG TABLET PO PRN (09:00)
[2018-09-24] MEDS: NORMAL SALINE 1000 ML 1,000 ML IV PRN (10:56)
[2018-09-24] MEDS: LACTULOSE SYRUP 20 GM/30 ML UDCUP PO SCH ×2 (10:56→17:39)
[2018-09-24] MEDS: NICOTINE 14 MG/24 HR PATCH.TD24 TD SCH (10:56)
[2018-09-24] MEDS: SILVER SULFADIAZINE 1% CREAM 400 GM TP PRN ×2 (11:04→17:41)
[2018-09-24] MEDS: LIDOCAINE 4% TOPICAL SOLN 50 ML TOP PRN (11:04)
[2018-09-24] MEDS: CLOTRIMAZOLE/BETAMETHASONE DIP CREAM 15 GM TOP SCH ×2 (11:05→18:45)
--- NOTE | 2018-09-24 12:08 | PDOC PROGRESS REPORT ---
Subjective Progress Note for:: 09/24/18 Subjective:: Patient is more awake and alert today. He is actually taking oral nutrition. Reason For Visit: ACUTE ALCOHOLIC HEPATITIS,DEHYDRATION Physical Exam Vital Signs: Temp Pulse Resp BP Pulse Ox 97.4 F 91 20 148/84 H 98 09/24/18 07:37 09/24/18 07:37 09/24/18 03:00 09/24/18 07:37 09/24/18 07:37 Intake & Output 09/23/18 09/24/18 09/25/18 06:59 06:59 06:59 Intake Total 3830 2642.4 843 Output Total 500 1650 Balance 3330 992.4 843 Weight 45.4 kg 46.8 kg General appearance: PRESENT: no acute distress, thin Head exam: PRESENT: atraumatic, normocephalic Ear exam: PRESENT: normal external ear exam Mouth exam: PRESENT: dry mucosa Neck exam: PRESENT: full ROM. ABSENT: carotid bruit, JVD, lymphadenopathy Respiratory exam: PRESENT: clear to auscultation kody, symmetrical, unlabored. ABSENT: crackles, prolonged expiratory phas, rales, rhonchi, wheezes Cardiovascular exam: PRESENT: RRR, +S1, +S2 GI/Abdominal exam: PRESENT: normal bowel sounds, soft. ABSENT: distended, tenderness Extremities exam: PRESENT: other - Decreased muscle mass Neurological exam: PRESENT: alert, awake, oriented to person, oriented to place, CN II-XII grossly intact Psychiatric exam: ABSENT: agitated, anxious Focused psych exam: PRESENT: other - Occasional hallucinations Skin exam: PRESENT: other - Marked excoriation in the buttock, groin and scrotal areas. Results Laboratory Results: 09/24/18 05:39 09/24/18 05:39 09/24/18 09/24/18 05:39 05:39 WBC 3.1 L RBC 3.54 L Hgb 11.9 L Hct 34.5 L MCV 97 MCH 33.6 H MCHC 34.5 RDW 15.0 H Plt Count 61 L Seg Neutrophils % Not Reportable Lymphocytes % Not Reportable Monocytes % Not Reportable Eosinophils % Not Reportable Basophils % Not Reportable Absolute Neutrophils Not Reportable Absolute Lymphocytes Not Reportable Absolute Monocytes Not Reportable Absolute Eosinophils Not Reportable Absolute Basophils Not Reportable Sodium 137.5 Potassium 2.8 L* Chloride 104 Carbon Dioxide 28 Anion Gap 6 BUN 13 Creatinine 0.39 L Est GFR ( Amer) > 60 Est GFR (Non-Af Amer) > 60 Glucose 109 Calcium 7.3 L Phosphorus 1.3 L Total Bilirubin 3.6 H AST 458 H ALT 137 H Alkaline Phosphatase 159 H Total Protein 4.9 L Albumin 2.3 L Lipase 544.2 H 09/22/18 12:30 Creatine Kinase 147 Impressions: Chest X-Ray 09/22/18 11:59 IMPRESSION: Obstructive lung disease. No acute findings Assessment & Plan - Diagnosis (1) Hepatitis, alcoholic Qualifiers: Ascites presence: without ascites Qualified Code(s): K70.10 - Alcoholic hepatitis without ascites Is this a current diagnosis for this admission?: Yes Plan: Transaminases are slowly improving (2) Dehydration Is this a current diagnosis for this admission?: Yes Plan: Continue IV fluid (3) Malnutrition Qualifiers: Malnutrition type: protein-calorie malnutrition Protein-calorie malnutr ition severity: severe Qualified Code(s): E43 - Unspecified severe protein- calorie malnutrition Is this a current diagnosis for this admission?: Yes Plan: Dietary will be seeing the patient to help maximize nutrition (4) Weakness Is this a current diagnosis for this admission?: Yes Plan: Physical therapy will be seeing the patient. (5) Nicotine addiction Qualifiers: Nicotine product type: cigarettes Substance use status: uncomplicated Qualified Code(s): F17.210 - Nicotine dependence, cigarettes, uncomplicated Is this a current diagnosis for this admission?: Yes Plan: Nicotine patch (6) Acute pancreatitis Is this a current diagnosis for this admission?: Yes Plan: No nausea or vomiting. Continue current diet. (7) Alcoholism Is this a current diagnosis for this admission?: Yes Plan: I discussed with the patient how it is likely that the marked depression after his led to his drinking. As he improves I told him we will start antidepressant therapy and he needs to follow-up as an outpatient with mental health. - Time Time Spent with patient: 15-24 minutes Medications reviewed and adjusted accordingly: Yes
[2018-09-24] MEDS: MORPHINE SULFATE 10 MG/ML INJ IV PRN (12:13)
[2018-09-24 15:19] LABS: ANION GAP 5 (5-19); BLOOD UREA NITROGEN 11 mg/dL (7-20); CALCIUM 7.2 mg/dL (8.4-10.2); CARBON DIOXIDE 27 mmol/L (22-30); CHLORIDE 104 mmol/L (98-107); GLUCOSE 123 mg/dL (75-110); POTASSIUM 3.1 mmol/L (3.6-5.0); SODIUM 136.3 mmol/L (137-145)
[2018-09-24] MEDS: [UNRECOGNIZED DRUG - REMARK] IV SCH ×4 (21:25)
[2018-09-25] MEDS: CEFAZOLIN SODIUM 2 GM in DEXTROSE 5%-WATER 100 ML IV SCH ×2 (01:23→05:14)
[2018-09-25] MEDS: MORPHINE SULFATE 10 MG/ML INJ IV PRN ×2 (01:54→20:47)
[2018-09-25] MEDS: LORAZEPAM INJ 2 MG/ML VIAL (4 MG PRN DOSE) IV (03:50)
[2018-09-25] MEDS ORDERED: LORAZEPAM 1 MG TABLET PO SCH (04:02)
[2018-09-25 04:24] LABS: HEMATOCRIT 34.4 % (37.9-51.0); HEMOGLOBIN 11.8 g/dL (13.5-17.0); MEAN CORPUSCULAR HEMOGLOBIN 33.7 pg (27.0-33.4); MEAN CORPUSCULAR HGB CONC 34.4 g/dL (32.0-36.0); MEAN CORPUSCULAR VOLUME 98 fl (80-97); RED BLOOD COUNT 3.51 10^6/uL (4.35-5.55); RED CELL DISTRIBUTION WIDTH 15.4 % (11.5-14.0); WHITE BLOOD COUNT 3.1 10^3/uL (4.0-10.5)
[2018-09-25 04:39] LABS: ALANINE AMINOTRANSFERASE 103 U/L (21-72); ALBUMIN 2.4 g/dL (3.5-5.0); ALKALINE PHOSPHATASE 159 U/L (38-126); ANION GAP 7 (5-19); ASPARTATE AMINO TRANSFERASE 430 U/L (17-59); BILIRUBIN,DIRECT 2.5 mg/dL (0.0-0.4); BILIRUBIN,TOTAL 3.2 mg/dL (0.2-1.3); BLOOD UREA NITROGEN 7 mg/dL (7-20); CALCIUM 7.2 mg/dL (8.4-10.2); CARBON DIOXIDE 26 mmol/L (22-30); CHLORIDE 102 mmol/L (98-107); GLUCOSE 115 mg/dL (75-110); LIPASE 445.2 U/L (23-300); POTASSIUM 3.1 mmol/L (3.6-5.0); SODIUM 134.7 mmol/L (137-145); TOTAL PROTEIN 5.1 g/dL (6.3-8.2)
[2018-09-25 04:43] LABS: ABSOLUTE LYMPHOCYTES# (MANUAL) 0.8 10^3/uL (0.5-4.7); ABSOLUTE MONOCYTES # (MANUAL) 0.4 10^3/uL (0.1-1.4); ABSOLUTE NEUTROPHILS# (MANUAL) 1.7 10^3/uL (1.7-8.2); BAND NEUTROPHILS % (MANUAL) 2 % (3-5); BASOPHILS % (MANUAL) 1 % (0-2); EOSINOPHILS % (MANUAL) 2 % (0-6); LYMPHOCYTES % (MANUAL) 25 % (13-45); MONOCYTES % (MANUAL) 14 % (3-13); SEGMENTED NEUTROPHILS % (MAN) 54 % (42-78); TOTAL CELLS COUNTED 100
[2018-09-25 04:50] LABS: ANISOCYTOSIS SLIGHT; OVALOCYTES 1+; POIKILOCYTOSIS 1+; TOXIC GRANULATION 1+; TOXIC VACUOLATION PRESENT
[2018-09-25 04:51] LABS: PLATELET COMMENT DECREASED; SCHISTOCYTES SLIGHT; TARGET CELLS 2+; TEAR DROP CELLS 1+
[2018-09-25 04:52] LABS: PLATELET COUNT 71 10^3/uL (150-450)
[2018-09-25] MEDS: LACTULOSE SYRUP 20 GM/30 ML UDCUP PO SCH ×2 (09:21→18:00)
[2018-09-25] MEDS: NICOTINE 14 MG/24 HR PATCH.TD24 TD SCH (09:23)
[2018-09-25] MEDS: CLOTRIMAZOLE/BETAMETHASONE DIP CREAM 15 GM TOP SCH ×2 (09:23→17:15)
[2018-09-25] MEDS ORDERED: POTASSIUM CHLORIDE 10 MEQ CAPSULE.ER PO SCH (10:00)
[2018-09-25] MEDS ORDERED: ONDANSETRON 4 MG TAB.RAPDIS PO PRN (14:30)
--- NOTE | 2018-09-25 16:13 | PDOC PROGRESS REPORT ---
Subjective Progress Note for:: 09/25/18 Subjective:: The patient continues to be more awake and alert. He is actually with visitors eating a regular lunch. Reason For Visit: ACUTE ALCOHOLIC HEPATITIS,DEHYDRATION Physical Exam Vital Signs: Temp Pulse Resp BP Pulse Ox 98.5 F 101 H 15 135/75 H 94 09/25/18 14:51 09/25/18 14:53 09/25/18 14:53 09/25/18 14:51 09/25/18 14:53 Intake & Output 09/24/18 09/25/18 09/26/18 06:59 06:59 06:59 Intake Total 2642.4 3226 237 Output Total 1650 1410 450 Balance 992.4 1816 -213 Weight 46.8 kg 49.1 kg General appearance: PRESENT: no acute distress, cooperative, thin - Temporal wasting and marked loss of muscle mass, well-developed Head exam: PRESENT: atraumatic, normocephalic Eye exam: PRESENT: conjunctiva pale, scleral icterus Ear exam: PRESENT: normal external ear exam Respiratory exam: PRESENT: clear to auscultation kody, symmetrical, unlabored. ABSENT: accessory muscle use, rales, rhonchi, wheezes Cardiovascular exam: PRESENT: RRR, +S1, +S2 GI/Abdominal exam: PRESENT: normal bowel sounds, soft. ABSENT: distended, tenderness Musculoskeletal exam: PRESENT: other - Decreased muscle mass Neurological exam: PRESENT: alert, awake, oriented to person, oriented to place, oriented to situation, CN II-XII grossly intact Psychiatric exam: PRESENT: appropriate affect, normal mood Focused psych exam: PRESENT: other - Staff reports occasional hallucinations. Seem to be improving. Results Laboratory Results: 09/25/18 04:09 09/25/18 04:09 09/25/18 09/25/18 09/25/18 04:09 04:09 04:09 WBC 3.1 L RBC 3.51 L Hgb 11.8 L Hct 34.4 L MCV 98 H MCH 33.7 H MCHC 34.4 RDW 15.4 H Plt Count 71 L Seg Neutrophils % Not Reportable Lymphocytes % Not Reportable Monocytes % Not Reportable Eosinophils % Not Reportable Basophils % Not Reportable Absolute Neutrophils Not Reportable Absolute Lymphocytes Not Reportable Absolute Monocytes Not Reportable Absolute Eosinophils Not Reportable Absolute Basophils Not Reportable Sodium 134.7 L Potassium 3.1 L Chloride 102 Carbon Dioxide 26 Anion Gap 7 BUN 7 Creatinine 0.34 L Est GFR ( Amer) > 60 Est GFR (Non-Af Amer) > 60 Glucose 115 H Calcium 7.2 L Total Bilirubin 3.2 H AST 430 H ALT 103 H Alkaline Phosphatase 159 H Ammonia 13.4 Total Protein 5.1 L Albumin 2.4 L Lipase 445.2 H 09/22/18 12:30 Blood Blood Culture - Final Enterococcus Faecalis(Group D) 09/22/18 12:10 Perez Catheter Urine Culture - Final NO GROWTH 2 DAYS 09/22/18 12:30 Creatine Kinase 147 Impressions: Chest X-Ray 09/22/18 11:59 IMPRESSION: Obstructive lung disease. No acute findings Assessment & Plan - Diagnosis (1) Hepatitis, alcoholic Qualifiers: Ascites presence: without ascites Qualified Code(s): K70.10 - Alcoholic hepatitis without ascites Is this a current diagnosis for this admission?: Yes Plan: He is transaminases and bilirubin are slowly improving. Continue to monitor. Once again we discussed cessation of alcohol today. (2) Dehydration Is this a current diagnosis for this admission?: Yes Plan: I will likely give him 1 more day of IV fluids. We then might just use the banana bag for another day or 2 and then switch to oral supplements. (3) Malnutrition Qualifiers: Malnutrition type: protein-calorie malnutrition Protein-calorie malnutrition severity: severe Qualified Code(s): E43 - Unspecified severe protein-calorie malnutrition Is this a current diagnosis for this admission?: Yes Plan: He will require good nutrition for many weeks. His BMI is only 16. We will need a reasonable discharge plan. His neighbor is like family and watches him closely. (4) Weakness Is this a current diagnosis for this admission?: Yes Plan: Profound. Continue physical therapy. (5) Nicotine addiction Qualifiers: Nicotine product type: cigarettes Substance use status: uncomplicated Qualified Code(s): F17.210 - Nicotine dependence, cigarettes, uncomplicated Is this a current diagnosis for this admission?: Yes Plan: Today he still wants a cigarette. We will continue the nicotine patch. (6) Acute pancreatitis Is this a current diagnosis for this admission?: Yes Plan: Lipase is slowly improving. He has no epigastric pain. He is taking oral nutrition without difficulty. (7) Alcoholism Is this a current diagnosis for this admission?: Yes Plan: This is likely related and severe depression. It started after his 's . Counseling for depression should also help eliminate alcoholism. - Time Time Spent with patient: 15-24 minutes Smoking Cessation Education: 3 to 10 minutes Medications reviewed and adjusted accordingly: Yes
[2018-09-25] MEDS: AMPICILLIN SODIUM 2 GM in NORMAL SALINE 100 ML IV SCH ×2 (17:14→22:04)
[2018-09-25] MEDS: NORMAL SALINE 1000 ML 1,000 ML IV PRN (19:15)
[2018-09-25] MEDS: SILVER SULFADIAZINE 1% CREAM 400 GM TP PRN (20:48)
[2018-09-25] MEDS: POTASSIUM CHLORIDE 10 MEQ CAPSULE.ER PO SCH (22:01)
[2018-09-25] MEDS: [UNRECOGNIZED DRUG - REMARK] IV SCH ×4 (22:01)
[2018-09-26] MEDS: NORMAL SALINE 1000 ML 1,000 ML IV PRN ×3 (01:32→18:55)
[2018-09-26] MEDS: ACETAMINOPHEN 325 MG TABLET PO PRN (02:11)
[2018-09-26] MEDS: AMPICILLIN SODIUM 2 GM in NORMAL SALINE 100 ML IV SCH ×6 (02:17→21:07)
[2018-09-26] MEDS: MORPHINE SULFATE 10 MG/ML INJ IV PRN ×3 (03:29→20:41)
[2018-09-26] MEDS: SILVER SULFADIAZINE 1% CREAM 400 GM TP PRN ×2 (03:45→09:48)
[2018-09-26] MEDS: LIDOCAINE 4% TOPICAL SOLN 50 ML TOP PRN ×2 (03:46→09:47)
[2018-09-26] MEDS: POTASSIUM CHLORIDE 10 MEQ CAPSULE.ER PO SCH ×3 (05:23→21:07)
[2018-09-26 06:55] LABS: HEMATOCRIT 32.7 % (37.9-51.0); HEMOGLOBIN 11.4 g/dL (13.5-17.0); MEAN CORPUSCULAR HEMOGLOBIN 34.2 pg (27.0-33.4); MEAN CORPUSCULAR HGB CONC 34.8 g/dL (32.0-36.0); MEAN CORPUSCULAR VOLUME 98 fl (80-97); RED BLOOD COUNT 3.33 10^6/uL (4.35-5.55); RED CELL DISTRIBUTION WIDTH 15.6 % (11.5-14.0); WHITE BLOOD COUNT 4.9 10^3/uL (4.0-10.5)
[2018-09-26 07:16] LABS: ANION GAP 5 (5-19); BLOOD UREA NITROGEN 8 mg/dL (7-20); CARBON DIOXIDE 28 mmol/L (22-30); CHLORIDE 105 mmol/L (98-107); GLUCOSE 154 mg/dL (75-110); SODIUM 137.8 mmol/L (137-145)
[2018-09-26 07:26] LABS: POTASSIUM 2.8 mmol/L (3.6-5.0)
[2018-09-26 07:46] LABS: PLATELET COUNT 89 10^3/uL (150-450)
[2018-09-26] MEDS: CALCIUM CARBONATE 250 MG/VITAMIN D3 125 UNIT TABLET PO SCH ×2 (09:46→17:30)
[2018-09-26] MEDS: NICOTINE 14 MG/24 HR PATCH.TD24 TD SCH (09:46)
[2018-09-26] MEDS: LACTULOSE SYRUP 20 GM/30 ML UDCUP PO SCH ×2 (09:47→17:30)
[2018-09-26] MEDS: POTASSI CL 20 MEQ/50 ML RIDER 20 MEQ/50 ML RTUPB IV SCH ×3 (09:47→14:15)
[2018-09-26] MEDS: CLOTRIMAZOLE/BETAMETHASONE DIP CREAM 15 GM TOP SCH ×2 (09:47→17:30)
[2018-09-26] MEDS ORDERED: CALCIUM GLUCONATE 1000 MG/10 ML INJ IV ONE ×3 (10:00→13:00)
[2018-09-26] MEDS ORDERED: CALCIUM CHLORIDE 10% PF/INJ 1000 MG/10 ML SDV IV ONE (10:00)
[2018-09-26] MEDS: FONDAPARINUX SODIUM INJ 2.5 MG/0.5 ML DISP.SYRIN SUBCUT SCH ×2 (10:04→11:57)
--- NOTE | 2018-09-26 11:00 | PDOC PROGRESS REPORT ---
Subjective Progress Note for:: 09/26/18 Subjective:: The patient is comfortable. His appetite has been good. He has been moving his bowels. His electrolytes are depleted but he is asymptomatic. Reason For Visit: ACUTE ALCOHOLIC HEPATITIS,DEHYDRATION Physical Exam Vital Signs: Temp Pulse Resp BP Pulse Ox 98.2 F 99 16 133/70 H 99 09/26/18 07:39 09/26/18 07:39 09/26/18 07:39 09/26/18 07:39 09/26/18 07:39 Intake & Output 09/25/18 09/26/18 09/27/18 06:59 06:59 06:59 Intake Total 3226 1700.2 Output Total 1410 1525 Balance 1816 175.2 Weight 49.1 kg 55.2 kg General appearance: PRESENT: no acute distress, cooperative, thin Head exam: PRESENT: atraumatic, normocephalic Eye exam: PRESENT: conjunctiva pale, scleral icterus Ear exam: PRESENT: normal external ear exam Mouth exam: PRESENT: moist, tongue midline Respiratory exam: PRESENT: clear to auscultation kody, symmetrical, unlabored. ABSENT: rales, rhonchi, wheezes Cardiovascular exam: PRESENT: RRR, +S1, +S2 GI/Abdominal exam: PRESENT: normal bowel sounds, soft. ABSENT: distended, tenderness Neurological exam: PRESENT: alert, awake, oriented to person, oriented to place, oriented to situation, CN II-XII grossly intact Psychiatric exam: PRESENT: appropriate affect, normal mood. ABSENT: agitated, anxious Focused psych exam: ABSENT: restlessness Results Laboratory Results: 09/26/18 06:24 09/26/18 06:24 09/26/18 09/26/18 06:24 06:24 WBC 4.9 RBC 3.33 L Hgb 11.4 L Hct 32.7 L MCV 98 H MCH 34.2 H MCHC 34.8 RDW 15.6 H Plt Count 89 L Sodium 137.8 Potassium 2.8 L* Chloride 105 Carbon Dioxide 28 Anion Gap 5 BUN 8 Creatinine 0.37 L Est GFR ( Amer) > 60 Est GFR (Non-Af Amer) > 60 Glucose 154 H Calcium 7.0 L* 09/22/18 12:30 Blood Blood Culture - Final Enterococcus Faecalis(Group D) 09/22/18 12:30 Creatine Kinase 147 Impressions: Chest X-Ray 09/22/18 11:59 IMPRESSION: Obstructive lung disease. No acute findings Assessment & Plan - Diagnosis (1) Hepatitis, alcoholic Qualifiers: Ascites presence: without ascites Qualified Code(s): K70.10 - Alcoholic hepatitis without ascites Is this a current diagnosis for this admission?: Yes Plan: Liver enzymes are improving. I did not check a comprehensive metabolic panel today I will check tomorrow. (2) Dehydration Is this a current diagnosis for this admission?: Yes Plan: He is starting to take better oral fluids. He will get 1 more liter today and then I will change his vitamin supplements to p.o. tomorrow and see if he could sustain adequate oral intake. (3) Malnutrition Qualifiers: Malnutrition type: protein-calorie malnutrition Protein-calorie malnu trition severity: severe Qualified Code(s): E43 - Unspecified severe protein- calorie malnutrition Is this a current diagnosis for this admission?: Yes Plan: Because of the severe depletion, it will take some time to correct his malnutrition. No alcohol intake will be a significant factor. Now that he is on normal diet I have asked the dietitian to make recommendations. (4) Weakness Is this a current diagnosis for this admission?: Yes Plan: Does have an order for out of bed with assistance. A physical therapy consult has been placed. (5) Nicotine addiction Qualifiers: Nicotine product type: cigarettes Substance use status: uncomplicated Qu alified Code(s): F17.210 - Nicotine dependence, cigarettes, uncomplicated Is this a current diagnosis for this admission?: Yes Plan: Continue nicotine patch (6) Acute pancreatitis Is this a current diagnosis for this admission?: Yes Plan: He has no pain, nausea or vomiting with his oral diet. Continue to monitor lipase. (7) Alcoholism Is this a current diagnosis for this admission?: Yes Plan: He will require outpatient support and detox. His alcoholism is routed and depression. He would benefit from mental health follow-up. - Time Time Spent with patient: 15-24 minutes Medications reviewed and adjusted accordingly: Yes
[2018-09-26] MEDS ORDERED: FONDAPARINUX SODIUM INJ 2.5 MG/0.5 ML DISP.SYRIN SUBCUT ONE (12:00)
[2018-09-26 16:32] LABS: ALBUMIN 2.2 g/dL (3.5-5.0); BLOOD UREA NITROGEN 7 mg/dL (7-20); CALCIUM 7.7 mg/dL (8.4-10.2); GLUCOSE 110 mg/dL (75-110); PHOSPHORUS 2.2 mg/dL (2.5-4.5)
[2018-09-26 16:37] LABS: CARBON DIOXIDE 28 mmol/L (22-30); CHLORIDE 105 mmol/L (98-107); SODIUM 136.3 mmol/L (137-145)
[2018-09-26 16:43] LABS: ANION GAP 3 (5-19); POTASSIUM 3.8 mmol/L (3.6-5.0)
[2018-09-26] MEDS: [UNRECOGNIZED DRUG - REMARK] IV SCH ×4 (21:07)
[2018-09-26] MEDS: LORAZEPAM INJ 2 MG/ML VIAL (4 MG PRN DOSE) IV (22:16)
[2018-09-27] MEDS: AMPICILLIN SODIUM 2 GM in NORMAL SALINE 100 ML IV SCH ×6 (02:17→21:34)
[2018-09-27] MEDS: NORMAL SALINE 1000 ML 1,000 ML IV PRN ×3 (02:28→21:40)
[2018-09-27] MEDS: MORPHINE SULFATE 10 MG/ML INJ IV PRN ×3 (02:58→20:21)
[2018-09-27] MEDS: POTASSIUM CHLORIDE 10 MEQ CAPSULE.ER PO SCH ×3 (05:43→21:34)
[2018-09-27 05:46] LABS: ALANINE AMINOTRANSFERASE 80 U/L (21-72); ALKALINE PHOSPHATASE 165 U/L (38-126); ASPARTATE AMINO TRANSFERASE 200 U/L (17-59); BILIRUBIN,DIRECT 1.5 mg/dL (0.0-0.4); BILIRUBIN,TOTAL 1.9 mg/dL (0.2-1.3); BLOOD UREA NITROGEN 5 mg/dL (7-20); CALCIUM 7.2 mg/dL (8.4-10.2); GLUCOSE 92 mg/dL (75-110); LIPASE 165.1 U/L (23-300); POTASSIUM 3.3 mmol/L (3.6-5.0); TOTAL PROTEIN 4.5 g/dL (6.3-8.2)
[2018-09-27 05:51] LABS: CARBON DIOXIDE 27 mmol/L (22-30); CHLORIDE 108 mmol/L (98-107); SODIUM 136.6 mmol/L (137-145)
[2018-09-27 05:53] LABS: ANION GAP 2 (5-19)
[2018-09-27 06:02] LABS: HEMATOCRIT 32.6 % (37.9-51.0); HEMOGLOBIN 11.1 g/dL (13.5-17.0); MEAN CORPUSCULAR HEMOGLOBIN 33.7 pg (27.0-33.4); MEAN CORPUSCULAR VOLUME 99 fl (80-97); RED CELL DISTRIBUTION WIDTH 15.9 % (11.5-14.0); WHITE BLOOD COUNT 5.6 10^3/uL (4.0-10.5)
[2018-09-27 06:32] LABS: PLATELET COUNT 91 10^3/uL (150-450)
[2018-09-27] MEDS: LACTULOSE SYRUP 20 GM/30 ML UDCUP PO SCH (09:18)
[2018-09-27] MEDS: CALCIUM CARBONATE 250 MG/VITAMIN D3 125 UNIT TABLET PO SCH ×2 (09:18→17:02)
[2018-09-27] MEDS: NICOTINE 14 MG/24 HR PATCH.TD24 TD SCH (09:18)
[2018-09-27] MEDS: FONDAPARINUX SODIUM INJ 2.5 MG/0.5 ML DISP.SYRIN SUBCUT SCH (09:18)
[2018-09-27] MEDS: CLOTRIMAZOLE/BETAMETHASONE DIP CREAM 15 GM TOP SCH ×2 (10:02→17:03)
[2018-09-27] MEDS: LIDOCAINE 4% TOPICAL SOLN 50 ML TOP PRN (10:02)
[2018-09-27] MEDS: SILVER SULFADIAZINE 1% CREAM 400 GM TP PRN (10:02)
--- NOTE | 2018-09-27 16:34 | PDOC PROGRESS REPORT ---
Subjective Progress Note for:: 09/27/18 Subjective:: Currently resting. Still having diarrhea. The bowel collection system is not very effective. Reason For Visit: ACUTE ALCOHOLIC HEPATITIS,DEHYDRATION Physical Exam Vital Signs: Temp Pulse Resp BP Pulse Ox 98.9 F 95 16 130/68 H 100 09/27/18 11:21 09/27/18 14:00 09/27/18 11:21 09/27/18 11:21 09/27/18 11:21 Intake & Output 09/26/18 09/27/18 09/28/18 06:59 06:59 06:59 Intake Total 1700.2 6293.4 1250 Output Total 1525 1375 200 Balance 175.2 4918.4 1050 Weight 55.2 kg 58.7 kg General appearance: PRESENT: no acute distress, thin Eye exam: PRESENT: conjunctiva pink Mouth exam: PRESENT: moist, tongue midline Respiratory exam: PRESENT: rhonchi - Mild rhonchi on the left, symmetrical, unlabored, other - Still with cough. ABSENT: wheezes Cardiovascular exam: PRESENT: RRR, +S1, +S2 GI/Abdominal exam: PRESENT: normal bowel sounds, soft. ABSENT: tenderness Rectal exam: PRESENT: other - Diarrhea Extremities exam: PRESENT: other - Decreased muscle mass/ Neurological exam: PRESENT: alert, awake, oriented to person, oriented to place Psychiatric exam: PRESENT: flat affect, normal mood Skin exam: PRESENT: pallor Results Laboratory Results: 09/27/18 04:54 09/27/18 04:54 09/26/18 09/27/18 09/27/18 16:00 04:54 04:54 WBC 5.6 RBC 3.30 L Hgb 11.1 L Hct 32.6 L MCV 99 H MCH 33.7 H MCHC 34.0 RDW 15.9 H Plt Count 91 L Sodium 136.3 L 136.6 L Potassium 3.8 D 3.3 L Chloride 105 108 H Carbon Dioxide 28 27 Anion Gap 3 L 2 L BUN 7 5 L Creatinine 0.37 L 0.35 L Est GFR ( Amer) > 60 > 60 Est GFR (Non-Af Amer) > 60 > 60 Glucose 110 92 Calcium 7.7 L 7.2 L Phosphorus 2.2 L Magnesium 1.4 L Total Bilirubin 1.9 H AST 200 H ALT 80 H Alkaline Phosphatase 165 H Total Protein 4.5 L Albumin 2.2 L 2.0 L Lipase 165.1 09/22/18 12:15 Blood Blood Culture - Final NO GROWTH IN 5 DAYS 09/22/18 12:30 Creatine Kinase 147 Impressions: Chest X-Ray 09/22/18 11:59 IMPRESSION: Obstructive lung disease. No acute findings Assessment & Plan - Diagnosis (1) Hepatitis, alcoholic Qualifiers: Ascites presence: without ascites Qualified Code(s): K70.10 - Alcoholic hepatitis without ascites Is this a current diagnosis for this admission?: Yes Plan: Transaminases continue to improve. The patient has not exhibited any delirium tremens. (2) Dehydration Is this a current diagnosis for this admission?: Yes Plan: The patient has received a lot of IV fluids. We are holding now that he will be taking an oral diet. (3) Malnutrition Qualifiers: Malnutrition type: protein-calorie malnutrition Protein-calorie malnutrition severity: severe Qualified Code(s): E43 - Unspecified severe protein-calorie malnutrition Is this a current diagnosis for this admission?: Yes Plan: Seems to be tolerating his oral diet. He is receiving protein supplements as well. (4) Weakness Is this a current diagnosis for this admission?: Yes Plan: Physical therapy has been working with the patient. They do not feel he is safe to even transfer to a chair he needs [facility]. (5) Nicotine addiction Qualifiers: Nicotine product type: cigarettes Substance use status: uncomplicated Qualified Code(s): F17.210 - Nicotine dependence, cigarettes, uncomplicated Is this a current diagnosis for this admission?: Yes Plan: Continue nicotine patch (6) Acute pancreatitis Is this a current diagnosis for this admission?: Yes Plan: Resolved (7) Alcoholism Is this a current diagnosis for this admission?: Yes Plan: Has not had any acute withdrawal symptoms. He will likely need counseling after discharge.
[2018-09-27] MEDS: MAGNESIUM OXIDE 400 MG TABLET PO SCH (17:05)
[2018-09-28] MEDS: MORPHINE SULFATE 10 MG/ML INJ IV PRN ×4 (02:12→23:14)
[2018-09-28] MEDS: AMPICILLIN SODIUM 2 GM in NORMAL SALINE 100 ML IV SCH ×6 (02:12→21:29)
[2018-09-28] MEDS: POTASSIUM CHLORIDE 10 MEQ CAPSULE.ER PO SCH ×3 (05:19→21:29)
[2018-09-28 06:40] LABS: ANION GAP 6 (5-19); BLOOD UREA NITROGEN 6 mg/dL (7-20); CALCIUM 7.6 mg/dL (8.4-10.2); CARBON DIOXIDE 25 mmol/L (22-30); CHLORIDE 104 mmol/L (98-107); GLUCOSE 93 mg/dL (75-110); POTASSIUM 3.7 mmol/L (3.6-5.0); SODIUM 135.1 mmol/L (137-145)
[2018-09-28] MEDS: IPRATROPIUM/ALBUTEROL 0.5-2.5 MG/3 ML AMPUL NEB PRN (08:50)
[2018-09-28] MEDS: NICOTINE 14 MG/24 HR PATCH.TD24 TD SCH (09:44)
[2018-09-28] MEDS: FONDAPARINUX SODIUM INJ 2.5 MG/0.5 ML DISP.SYRIN SUBCUT SCH (09:46)
[2018-09-28] MEDS: MAGNESIUM OXIDE 400 MG TABLET PO SCH ×2 (09:47→17:32)
[2018-09-28] MEDS: CLOTRIMAZOLE/BETAMETHASONE DIP CREAM 15 GM TOP SCH ×2 (09:47→17:32)
[2018-09-28] MEDS: THIAMINE HCL 100 MG TABLET PO SCH (09:47)
[2018-09-28] MEDS: CALCIUM CARBONATE 250 MG/VITAMIN D3 125 UNIT TABLET PO SCH ×2 (09:47→17:31)
[2018-09-28] MEDS: MULTIVITAMIN TABLET PO SCH (09:48)
[2018-09-28] MEDS: NORMAL SALINE 1000 ML 1,000 ML IV PRN ×2 (09:48→18:56)
--- NOTE | 2018-09-28 15:52 | PDOC PROGRESS REPORT ---
Subjective Progress Note for:: 09/28/18 Subjective:: Still feels weak. Working with physical therapy. Denies fever or chills, no chest pain or palpitations. No nausea or vomiting. Reason For Visit: ACUTE ALCOHOLIC HEPATITIS,DEHYDRATION Physical Exam Vital Signs: Temp Pulse Resp BP Pulse Ox 98.7 F 110 H 18 99/50 L 97 09/28/18 11:06 09/28/18 14:00 09/28/18 11:06 09/28/18 11:06 09/28/18 11:06 Intake & Output 09/27/18 09/28/18 09/29/18 06:59 06:59 06:59 Intake Total 6293.4 3750 450 Output Total 1375 900 800 Balance 4918.4 2850 -350 Weight 58.7 kg 59.4 kg General appearance: PRESENT: no acute distress, thin Respiratory exam: PRESENT: rhonchi - Mild rhonchi on the left, symmetrical, unlabored, other - Still with cough. ABSENT: wheezes Cardiovascular exam: PRESENT: RRR, +S1, +S2 GI/Abdominal exam: PRESENT: normal bowel sounds, soft. ABSENT: tenderness Rectal exam: PRESENT: other - Diarrhea Extremities exam: PRESENT: other - Decreased muscle mass/ Neurological exam: PRESENT: alert, awake, oriented to person, oriented to place Psychiatric exam: PRESENT: normal mood Skin exam: PRESENT: pallor Results Laboratory Results: 09/27/18 04:54 09/28/18 05:49 09/28/18 05:49 Sodium 135.1 L Potassium 3.7 Chloride 104 Carbon Dioxide 25 Anion Gap 6 BUN 6 L Creatinine 0.36 L Est GFR ( Amer) > 60 Est GFR (Non-Af Amer) > 60 Glucose 93 Calcium 7.6 L Magnesium 1.4 L 09/22/18 12:15 Blood Blood Culture - Final NO GROWTH IN 5 DAYS 09/22/18 12:30 Creatine Kinase 147 Impressions: Chest X-Ray 09/22/18 11:59 IMPRESSION: Obstructive lung disease. No acute findings Assessment & Plan - Diagnosis (1) Hepatitis, alcoholic Qualifiers: Ascites presence: without ascites Qualified Code(s): K70.10 - Alcoholic hepatitis without ascites Is this a current diagnosis for this admission?: Yes (2) Alcoholism Is this a current diagnosis for this admission?: Yes (3) Dehydration Is this a current diagnosis for this admission?: Yes Plan: Status post IV fluids. This has resolved. (4) Malnutrition Qualifiers: Malnutrition type: protein-calorie malnutrition Protein-calorie malnutrition severity: severe Qualified Code(s): E43 - Unspecified severe protein-calorie malnutrition Is this a current diagnosis for this admission?: Yes (5) Nicotine addiction Qualifiers: Nicotine product type: cigarettes Substance use status: uncomplicated Qualified Code(s): F17.210 - Nicotine dependence, cigarettes, uncomplicated Is this a current diagnosis for this admission?: Yes (6) Weakness Is this a current diagnosis for this admission?: Yes (7) Acute pancreatitis Is this a current diagnosis for this admission?: Yes Plan: Resolved (8) Hypomagnesemia Is this a current diagnosis for this admission?: Yes - Plan Summary Plan Summary: Continue PT/OT, aggressive medical management. Patient awaiting rehab. Will continue magnesium repletion.
[2018-09-28] MEDS: SILVER SULFADIAZINE 1% CREAM 400 GM TP PRN (17:33)
[2018-09-29] MEDS: AMPICILLIN SODIUM 2 GM in NORMAL SALINE 100 ML IV SCH ×6 (01:57→22:01)
[2018-09-29] MEDS: LORAZEPAM INJ 2 MG/ML VIAL (4 MG PRN DOSE) IV ×2 (01:59→18:01)
[2018-09-29] MEDS: POTASSIUM CHLORIDE 10 MEQ CAPSULE.ER PO SCH ×3 (05:42→22:00)
[2018-09-29] MEDS: NICOTINE 14 MG/24 HR PATCH.TD24 TD SCH (10:12)
[2018-09-29] MEDS: MULTIVITAMIN TABLET PO SCH (10:12)
[2018-09-29] MEDS: CLOTRIMAZOLE/BETAMETHASONE DIP CREAM 15 GM TOP SCH ×2 (10:12→18:02)
[2018-09-29] MEDS: MAGNESIUM OXIDE 400 MG TABLET PO SCH ×2 (10:12→17:49)
[2018-09-29] MEDS: THIAMINE HCL 100 MG TABLET PO SCH (10:12)
[2018-09-29] MEDS: CALCIUM CARBONATE 250 MG/VITAMIN D3 125 UNIT TABLET PO SCH ×2 (10:12→17:49)
[2018-09-29] MEDS: IPRATROPIUM/ALBUTEROL 0.5-2.5 MG/3 ML AMPUL NEB PRN (10:55)
[2018-09-29] MEDS: FONDAPARINUX SODIUM INJ 2.5 MG/0.5 ML DISP.SYRIN SUBCUT SCH (11:15)
--- NOTE | 2018-09-29 12:18 | PDOC PROGRESS REPORT ---
Subjective Progress Note for:: 09/29/18 Subjective:: Still feels weak, but slowly improving. Worked with physical therapy. Denies fever or chills, no chest pain or palpitations. No nausea or vomiting. Reason For Visit: ACUTE ALCOHOLIC HEPATITIS,DEHYDRATION Physical Exam Vital Signs: Temp Pulse Resp BP Pulse Ox 98.3 F 92 20 124/75 96 09/29/18 08:01 09/29/18 10:55 09/29/18 10:55 09/29/18 08:01 09/29/18 10:55 Intake & Output 09/28/18 09/29/18 09/30/18 06:59 06:59 06:59 Intake Total 3750 2808 200 Output Total 900 2700 Balance 2850 108 200 Weight 59.4 kg 60.9 kg General appearance: PRESENT: no acute distress, thin Respiratory exam: PRESENT: rhonchi - Mild rhonchi on the left, symmetrical, unlabored, other - Still with cough. ABSENT: wheezes Cardiovascular exam: PRESENT: RRR, +S1, +S2 GI/Abdominal exam: PRESENT: normal bowel sounds, soft. ABSENT: tenderness Extremities exam: PRESENT: other - Decreased muscle mass Neurological exam: PRESENT: alert, awake, oriented to person, oriented to place Psychiatric exam: PRESENT: normal mood Results Laboratory Results: 09/27/18 04:54 09/28/18 05:49 09/22/18 12:30 Creatine Kinase 147 Impressions: Chest X-Ray 09/22/18 11:59 IMPRESSION: Obstructive lung disease. No acute findings Assessment & Plan - Diagnosis (1) Hepatitis, alcoholic Qualifiers: Ascites presence: without ascites Qualified Code(s): K70.10 - Alcoholic hepatitis without ascites Is this a current diagnosis for this admission?: Yes (2) Alcoholism Is this a current diagnosis for this admission?: Yes (3) Dehydration Is this a current diagnosis for this admission?: Yes (4) Malnutrition Qualifiers: Malnutrition type: protein-calorie malnutrition Protein-calorie malnutrition severity: severe Qualified Code(s): E43 - Unspecified severe protein-calorie malnutrition Is this a current diagnosis for this admission?: Yes (5) Nicotine addiction Qualifiers: Nicotine product type: cigarettes Substance use status: uncomplicated Qualified Code(s): F17.210 - Nicotine dependence, cigarettes, uncomplicated Is this a current diagnosis for this admission?: Yes (6) Weakness Is this a current diagnosis for this admission?: Yes (7) Acute pancreatitis Is this a current diagnosis for this admission?: Yes Plan: Resolved (8) Hypomagnesemia Is this a current diagnosis for this admission?: Yes - Plan Summary Plan Summary: Continue PT/OT, medical management. Patient awaiting rehab. Will continue magnesium repletion. Follow-up CBC, Chem-7, magnesium levels in a.m.
[2018-09-29] MEDS: MORPHINE SULFATE 10 MG/ML INJ IV PRN ×2 (14:03→23:00)
[2018-09-29] MEDS: LIDOCAINE 4% TOPICAL SOLN 50 ML TOP PRN (17:56)
[2018-09-30] MEDS: AMPICILLIN SODIUM 2 GM in NORMAL SALINE 100 ML IV SCH ×6 (02:38→22:23)
[2018-09-30] MEDS: POTASSIUM CHLORIDE 10 MEQ CAPSULE.ER PO SCH ×3 (06:02→22:24)
[2018-09-30 06:29] LABS: HEMATOCRIT 29.5 % (37.9-51.0); HEMOGLOBIN 10.5 g/dL (13.5-17.0); MEAN CORPUSCULAR HEMOGLOBIN 34.7 pg (27.0-33.4); MEAN CORPUSCULAR HGB CONC 35.4 g/dL (32.0-36.0); MEAN CORPUSCULAR VOLUME 98 fl (80-97); PLATELET COUNT 208 10^3/uL (150-450); RED BLOOD COUNT 3.01 10^6/uL (4.35-5.55); RED CELL DISTRIBUTION WIDTH 15.9 % (11.5-14.0)
[2018-09-30 06:47] LABS: BLOOD UREA NITROGEN 8 mg/dL (7-20); CALCIUM 7.7 mg/dL (8.4-10.2); GLUCOSE 101 mg/dL (75-110); POTASSIUM 3.8 mmol/L (3.6-5.0)
[2018-09-30 06:53] LABS: CARBON DIOXIDE 30 mmol/L (22-30); CHLORIDE 102 mmol/L (98-107); SODIUM 134.4 mmol/L (137-145)
[2018-09-30] MEDS: MORPHINE SULFATE 10 MG/ML INJ IV PRN ×2 (06:54→13:19)
[2018-09-30 06:55] LABS: ANION GAP 2 (5-19)
[2018-09-30 08:08] LABS: ABSOLUTE MONOCYTES # (MANUAL) 0.6 10^3/uL (0.1-1.4); ABSOLUTE NEUTROPHILS# (MANUAL) 6.2 10^3/uL (1.7-8.2); BASOPHILS % (MANUAL) 0 % (0-2); EOSINOPHILS % (MANUAL) 1 % (0-6); LYMPHOCYTES % (MANUAL) 13 % (13-45); MONOCYTES % (MANUAL) 8 % (3-13); SEGMENTED NEUTROPHILS % (MAN) 78 % (42-78); TOTAL CELLS COUNTED 100
[2018-09-30 08:09] LABS: ANISOCYTOSIS SLIGHT
[2018-09-30 08:10] LABS: PLATELET COMMENT ADEQUATE
[2018-09-30] MEDS: NICOTINE 14 MG/24 HR PATCH.TD24 TD SCH (10:04)
[2018-09-30] MEDS: MAGNESIUM OXIDE 400 MG TABLET PO SCH ×2 (10:04→17:25)
[2018-09-30] MEDS: MULTIVITAMIN TABLET PO SCH (10:04)
[2018-09-30] MEDS: CLOTRIMAZOLE/BETAMETHASONE DIP CREAM 15 GM TOP SCH ×2 (10:04→17:26)
[2018-09-30] MEDS: FONDAPARINUX SODIUM INJ 2.5 MG/0.5 ML DISP.SYRIN SUBCUT SCH (10:04)
[2018-09-30] MEDS: CALCIUM CARBONATE 250 MG/VITAMIN D3 125 UNIT TABLET PO SCH ×2 (10:04→17:25)
[2018-09-30] MEDS: THIAMINE HCL 100 MG TABLET PO SCH (10:16)
--- NOTE | 2018-09-30 11:04 | PDOC PROGRESS REPORT ---
Subjective Progress Note for:: 09/30/18 Subjective:: Feels continues slowly improving. Feels physical therapy is helping and would like to go home with home health PT if not residential facility. Denies fever or chills, no chest pain or palpitations. No nausea or vomiting. Reason For Visit: ACUTE ALCOHOLIC HEPATITIS,DEHYDRATION Physical Exam Vital Signs: Temp Pulse Resp BP Pulse Ox 98.0 F 87 20 130/76 H 92 09/30/18 07:25 09/30/18 07:25 09/30/18 07:25 09/30/18 07:25 09/30/18 07:25 Intake & Output 09/29/18 09/30/18 10/01/18 06:59 06:59 06:59 Intake Total 2808 1324 100 Output Total 2700 1550 Balance 108 -226 100 Weight 60.9 kg 61.4 kg General appearance: PRESENT: no acute distress, thin Respiratory exam: PRESENT: rhonchi - Mild rhonchi on the left, symmetrical, unlabored, other - Still with cough. ABSENT: wheezes Cardiovascular exam: PRESENT: RRR, +S1, +S2 GI/Abdominal exam: PRESENT: normal bowel sounds, soft. ABSENT: tenderness Extremities exam: PRESENT: No edema Neurological exam: PRESENT: alert, awake, oriented to person, oriented to place, ABSENT: focal weakness Psychiatric exam: PRESENT: normal mood Results Laboratory Results: 09/30/18 05:54 09/30/18 05:54 09/30/18 09/30/18 05:54 05:54 WBC 8.0 RBC 3.01 L Hgb 10.5 L Hct 29.5 L MCV 98 H MCH 34.7 H MCHC 35.4 RDW 15.9 H Plt Count 208 Seg Neutrophils % Not Reportable Lymphocytes % Not Reportable Monocytes % Not Reportable Eosinophils % Not Reportable Basophils % Not Reportable Absolute Neutrophils Not Reportable Absolute Lymphocytes Not Reportable Absolute Monocytes Not Reportable Absolute Eosinophils Not Reportable Absolute Basophils Not Reportable Sodium 134.4 L Potassium 3.8 Chloride 102 Carbon Dioxide 30 Anion Gap 2 L BUN 8 Creatinine 0.42 L Est GFR ( Amer) > 60 Est GFR (Non-Af Amer) > 60 Glucose 101 Calcium 7.7 L Magnesium 1.6 09/22/18 12:30 Creatine Kinase 147 Impressions: Chest X-Ray 09/22/18 11:59 IMPRESSION: Obstructive lung disease. No acute findings Assessment & Plan - Diagnosis (1) Hepatitis, alcoholic Qualifiers: Ascites presence: without ascites Qualified Code(s): K70.10 - Alcoholic hepatitis without ascites Is this a current diagnosis for this admission?: Yes (2) Alcoholism Is this a current diagnosis for this admission?: Yes (3) Dehydration Is this a current diagnosis for this admission?: Yes (4) Malnutrition Qualifiers: Malnutrition type: protein-calorie malnutrition Protein-calorie malnutrition severity: severe Qualified Code(s): E43 - Unspecified severe protein-calorie malnutrition Is this a current diagnosis for this admission?: Yes (5) Nicotine addiction Qualifiers: Nicotine product type: cigarettes Substance use status: uncomplicated Qualified Code(s): F17.210 - Nicotine dependence, cigarettes, uncomplicated Is this a current diagnosis for this admission?: Yes (6) Weakness Is this a current diagnosis for this admission?: Yes (7) Acute pancreatitis Is this a current diagnosis for this admission?: Yes (8) Hypomagnesemia Is this a current diagnosis for this admission?: Yes - Plan Summary Plan Summary: Continue PT/OT, medical management. Care management working on patient being discharged to rehab versus home with home health. Will continue magnesium repletion. D/C Ana.
[2018-09-30] MEDS: IPRATROPIUM/ALBUTEROL 0.5-2.5 MG/3 ML AMPUL NEB PRN (13:49)
[2018-09-30] MEDS: LORAZEPAM INJ 2 MG/ML VIAL (4 MG PRN DOSE) IV (14:49)
[2018-09-30] MEDS: LIDOCAINE 4% TOPICAL SOLN 50 ML TOP PRN (17:25)
[2018-09-30] MEDS: SILVER SULFADIAZINE 1% CREAM 400 GM TP PRN (17:25)
[2018-10-01] MEDS: MORPHINE SULFATE 10 MG/ML INJ IV PRN ×3 (01:03→18:20)
[2018-10-01] MEDS: AMPICILLIN SODIUM 2 GM in NORMAL SALINE 100 ML IV SCH ×6 (02:40→21:34)
[2018-10-01] MEDS: POTASSIUM CHLORIDE 10 MEQ CAPSULE.ER PO SCH ×3 (05:14→21:34)
[2018-10-01] MEDS: NICOTINE 14 MG/24 HR PATCH.TD24 TD SCH (09:33)
[2018-10-01] MEDS: MAGNESIUM OXIDE 400 MG TABLET PO SCH ×2 (09:33→18:16)
[2018-10-01] MEDS: CLOTRIMAZOLE/BETAMETHASONE DIP CREAM 15 GM TOP SCH ×2 (09:33→18:17)
[2018-10-01] MEDS: FONDAPARINUX SODIUM INJ 2.5 MG/0.5 ML DISP.SYRIN SUBCUT SCH (09:33)
[2018-10-01] MEDS: CALCIUM CARBONATE 250 MG/VITAMIN D3 125 UNIT TABLET PO SCH ×2 (09:34→18:16)
[2018-10-01] MEDS: THIAMINE HCL 100 MG TABLET PO SCH (09:34)
[2018-10-01] MEDS: MULTIVITAMIN TABLET PO SCH (09:34)
[2018-10-01 10:12] LABS: HEMATOCRIT 30.7 % (37.9-51.0); HEMOGLOBIN 10.7 g/dL (13.5-17.0); MEAN CORPUSCULAR HEMOGLOBIN 34.4 pg (27.0-33.4); MEAN CORPUSCULAR VOLUME 98 fl (80-97); PLATELET COUNT 260 10^3/uL (150-450); RED BLOOD COUNT 3.12 10^6/uL (4.35-5.55); RED CELL DISTRIBUTION WIDTH 16.1 % (11.5-14.0); WHITE BLOOD COUNT 8.5 10^3/uL (4.0-10.5)
[2018-10-01 10:24] LABS: ANION GAP 6 (5-19); BLOOD UREA NITROGEN 8 mg/dL (7-20); CALCIUM 8.1 mg/dL (8.4-10.2); CARBON DIOXIDE 28 mmol/L (22-30); CHLORIDE 101 mmol/L (98-107); GLUCOSE 93 mg/dL (75-110); POTASSIUM 4.5 mmol/L (3.6-5.0); SODIUM 134.7 mmol/L (137-145)
[2018-10-01 10:34] LABS: ABSOLUTE LYMPHOCYTES# (MANUAL) 0.8 10^3/uL (0.5-4.7); ABSOLUTE MONOCYTES # (MANUAL) 1.2 10^3/uL (0.1-1.4); ABSOLUTE NEUTROPHILS# (MANUAL) 6.5 10^3/uL (1.7-8.2); BAND NEUTROPHILS % (MANUAL) 1 % (3-5); BASOPHILS % (MANUAL) 0 % (0-2); EOSINOPHILS % (MANUAL) 0 % (0-6); LYMPHOCYTES % (MANUAL) 9 % (13-45); MONOCYTES % (MANUAL) 14 % (3-13); SEGMENTED NEUTROPHILS % (MAN) 76 % (42-78); TOTAL CELLS COUNTED 100
[2018-10-01 10:36] LABS: ANISOCYTOSIS 1+; PLATELET COMMENT ADEQUATE; POIKILOCYTOSIS SLIGHT; TARGET CELLS SLIGHT; TEAR DROP CELLS SLIGHT
--- NOTE | 2018-10-01 13:40 | PDOC PROGRESS REPORT ---
Subjective Progress Note for:: 10/01/18 Subjective:: Feels weak today. Feels physical therapy is helping and would like to go home with home health PT, but now wants to wait another day to decide on if to go to [facility] facility if he does not feel like he is getting stronger enough. Denies fever or chills, no chest pain or palpitations. No nausea or vomiting. Reason For Visit: ACUTE ALCOHOLIC HEPATITIS,DEHYDRATION Physical Exam Vital Signs: Temp Pulse Resp BP Pulse Ox 98.2 F 101 H 18 134/75 H 90 L 10/01/18 11:54 10/01/18 11:54 10/01/18 11:54 10/01/18 11:54 10/01/18 11:54 Intake & Output 09/30/18 10/01/18 10/02/18 06:59 06:59 06:59 Intake Total 1324 1789 100 Output Total 1550 3300 Balance -226 -1511 100 Weight 61.4 kg 58.8 kg Results Laboratory Results: 10/01/18 09:03 10/01/18 09:03 10/01/18 10/01/18 09:03 09:03 WBC 8.5 RBC 3.12 L Hgb 10.7 L Hct 30.7 L MCV 98 H MCH 34.4 H MCHC 35.0 RDW 16.1 H Plt Count 260 Seg Neutrophils % Not Reportable Lymphocytes % Not Reportable Monocytes % Not Reportable Eosinophils % Not Reportable Basophils % Not Reportable Absolute Neutrophils Not Reportable Absolute Lymphocytes Not Reportable Absolute Monocytes Not Reportable Absolute Eosinophils Not Reportable Absolute Basophils Not Reportable Sodium 134.7 L Potassium 4.5 Chloride 101 Carbon Dioxide 28 Anion Gap 6 BUN 8 Creatinine 0.42 L Est GFR ( Amer) > 60 Est GFR (Non-Af Amer) > 60 Glucose 93 Calcium 8.1 L 09/22/18 12:30 Creatine Kinase 147 Impressions: Chest X-Ray 09/22/18 11:59 IMPRESSION: Obstructive lung disease. No acute findings Assessment & Plan - Diagnosis (1) Hepatitis, alcoholic Qualifiers: Ascites presence: without ascites Qualified Code(s): K70.10 - Alcoholic hepatitis without ascites Is this a current diagnosis for this admission?: Yes (2) Alcoholism Is this a current diagnosis for this admission?: Yes (3) Dehydration Is this a current diagnosis for this admission?: Yes (4) Malnutrition Qualifiers: Malnutrition type: protein-calorie malnutrition Protein-calorie malnutrition severity: severe Qualified Code(s): E43 - Unspecified severe protein-calorie malnutrition Is this a current diagnosis for this admission?: Yes (5) Nicotine addiction Qualifiers: Nicotine product type: cigarettes Substance use status: uncomplicated Qualified Code(s): F17.210 - Nicotine dependence, cigarettes, uncomplicated Is this a current diagnosis for this admission?: Yes (6) Weakness Is this a current diagnosis for this admission?: Yes (7) Acute pancreatitis Is this a current diagnosis for this admission?: Yes (8) Hypomagnesemia Is this a current diagnosis for this admission?: Yes - Plan Summary Plan Summary: Continue PT/OT, medical management. Care management continuing to work on patient being discharged to rehab versus home with home health. Patient advised he should probably make decision by tomorrow or go home with home health PT. Will continue magnesium repletion. D/C Perez--bedside commode, as patient states he has difficulty walking to the bathroom.
[2018-10-01] MEDS: IPRATROPIUM/ALBUTEROL 0.5-2.5 MG/3 ML AMPUL NEB PRN (13:56)
[2018-10-01] MEDS: ESCITALOPRAM OXALATE 10 MG TABLET PO SCH (16:53)
[2018-10-01] MEDS: SILVER SULFADIAZINE 1% CREAM 400 GM TP PRN (18:17)
[2018-10-01] MEDS: LIDOCAINE 4% TOPICAL SOLN 50 ML TOP PRN (18:19)
[2018-10-02] MEDS: AMPICILLIN SODIUM 2 GM in NORMAL SALINE 100 ML IV SCH ×4 (02:35→14:03)
[2018-10-02] MEDS: MORPHINE SULFATE 10 MG/ML INJ IV PRN (06:47)
[2018-10-02] MEDS: POTASSIUM CHLORIDE 10 MEQ CAPSULE.ER PO SCH ×2 (09:16→09:25)
[2018-10-02] MEDS: MAGNESIUM OXIDE 400 MG TABLET PO SCH ×2 (09:16→17:17)
[2018-10-02] MEDS: CALCIUM CARBONATE 250 MG/VITAMIN D3 125 UNIT TABLET PO SCH ×2 (09:16→17:17)
[2018-10-02] MEDS: ESCITALOPRAM OXALATE 10 MG TABLET PO SCH (09:16)
[2018-10-02] MEDS: NICOTINE 14 MG/24 HR PATCH.TD24 TD SCH (09:16)
[2018-10-02] MEDS: THIAMINE HCL 100 MG TABLET PO SCH (09:16)
[2018-10-02] MEDS: MULTIVITAMIN TABLET PO SCH (09:16)
[2018-10-02] MEDS: FONDAPARINUX SODIUM INJ 2.5 MG/0.5 ML DISP.SYRIN SUBCUT SCH (09:17)
[2018-10-02] MEDS: IPRATROPIUM/ALBUTEROL 0.5-2.5 MG/3 ML AMPUL NEB PRN (12:22)
[2018-10-02] MEDS: LORAZEPAM INJ 2 MG/ML VIAL (4 MG PRN DOSE) IV (14:03)
[2018-10-02] MEDS: CLOTRIMAZOLE/BETAMETHASONE DIP CREAM 15 GM TOP SCH ×2 (14:04→17:18)
--- NOTE | 2018-10-02 16:10 | PDOC DISCHARGE SUMMARY ---
General - Admit/Disc Date/PCP Admission Date/Primary Care Provider: 09/22/18 15:14 ARMINDA TOM MD Discharge Date: 10/02/18 - Discharge Diagnosis (1) Hepatitis, alcoholic Is this a current diagnosis for this admission?: Yes (2) Alcoholism Is this a current diagnosis for this admission?: Yes (3) Dehydration Is this a current diagnosis for this admission?: Yes (4) Malnutrition Is this a current diagnosis for this admission?: Yes (5) Nicotine addiction Is this a current diagnosis for this admission?: Yes (6) Weakness Is this a current diagnosis for this admission?: Yes (7) Acute pancreatitis Is this a current diagnosis for this admission?: Yes (8) Hypomagnesemia Is this a current diagnosis for this admission?: Yes (9) Depression Is this a current diagnosis for this admission?: Yes (10) COPD with hypoxia Is this a current diagnosis for this admission?: Yes - Additional Information Prescriptions: Clotrimazole/Betamethasone Dip [Lotrisone Cream 15 gm] 1 applic TOP BID 10 Days tube Escitalopram Oxalate [Lexapro 10 mg Tablet] 10 mg PO DAILY 30 Days #30 tablet Magnesium Oxide [Mag-Ox 400 mg Tablet] 400 mg PO BID 10 Days #20 tablet Multivitamin [Tab-A-Lisandra (Multiple Vitamin) Tablet] 1 tab PO DAILY 30 Days #30 tablet Silver Sulfadiazine [Silvadene 1% Cream 400 gm] 1 applic TP Q6HP PRN 14 Days jar PRN Reason: Thiamine HCl [Thiamine 100 mg Tablet] 100 mg PO DAILY 30 Days #30 tablet Home Medications: Albuterol Sulfate [Proair HFA Inhalation Aerosol 8.5 gm MDI] 2 puff IH Q4HP PRN 09/22/18 Acetaminophen [Tylenol 325 mg Tablet] 650 mg PO Q4HP PRN tablet 10/02/18 Clotrimazole/Betamethasone Dip [Lotrisone Cream 15 gm] 1 applic TOP BID 10 Days tube 10/02/18 Escitalopram Oxalate [Lexapro 10 mg Tablet] 10 mg PO DAILY 30 Days #30 tablet 10/02/18 Magnesium Oxide [Mag-Ox 400 mg Tablet] 400 mg PO BID 10 Days #20 tablet 10/02/18 Multivitamin [Tab-A-Lisandra (Multiple Vitamin) Tablet] 1 tab PO DAILY 30 Days #30 tablet 10/02/18 Silver Sulfadiazine [Silvadene 1% Cream 400 gm] 1 applic TP Q6HP PRN 14 Days jar 10/02/18 Thiamine HCl [Thiamine 100 mg Tablet] 100 mg PO DAILY 30 Days #30 tablet 10/02/18 History of Present Illness History of Present Illness: Patient was admitted after presentation as in HPI below: "TRACIE ETIENNE is a 73 year old male whose only medical history is chronic obstructive pulmonary disease. He is currently a smoker. He has an albuterol inhaler for as needed use. Otherwise he is on no medications and has no other past medical history. His in April of this year. He has no children. His parents are and he has no surviving siblings. To cope he started drinking heavily. He drinks approximately 1/5 of whiskey daily. He reports that he has been getting weaker. He has lost weight. In fact when his friend came over to visit he was not even strong enough to get off the couch. He does not think he has had anything to eat in 4-5 days." Hospital Course Hospital Course: Patient's evaluation revealed alcohol hepatitis, lipase of as high as 748. He was also very weak and hypoxic. He was admitted and managed as follows: (1) Hepatitis, alcoholic Qualifiers: Ascites presence: without ascites Qualified Code(s): K70.10 - Alcoholic hepatitis without ascites Is this a current diagnosis for this admission?: Yes LFT's monitored and improved. (2) Alcoholism Is this a current diagnosis for this admission?: Yes Treated with ativan prn for withdrawal. Counselled against continued drinking. States he has stopped. Not interested in rehab. (3) Dehydration Is this a current diagnosis for this admission?: Yes Treated with IVF, encouraged po's. (4) Malnutrition Qualifiers: Malnutrition type: protein-calorie malnutrition Protein-calorie malnutrition severity: severe Qualified Code(s): E43 - Unspecified severe prot ein-calorie malnutrition Is this a current diagnosis for this admission?: Yes encouraged po's. (5) Nicotine addiction Qualifiers: Nicotine product type: cigarettes Substance use status: uncomplicated Qualified Code(s): F17.210 - Nicotine dependence, cigarettes, uncomplicated Is this a current diagnosis for this admission?: Yes Treated with nicotin patch (6) Weakness Is this a current diagnosis for this admission?: Yes PT/OT. Recomended SNF for further rehab, but declined. Pt d/c'd with HHPT. (7) Acute pancreatitis Is this a current diagnosis for this admission?: Yes Did ok, no abd pain, no n/v, tolerating po's. Lipase now 165. (8) Hypomagnesemia Is this a current diagnosis for this admission?: Yes Repleted (9) Depression Is this a current diagnosis for this admission?: Yes Started on Lexapro 10mg daily. (10) COPD with hypoxia Is this a current diagnosis for this admission?: Yes O2 sat was <88 on RA Patient is discharged on home on oxygen 2L continuous (11) Disposition/followup Declined SNF with rehab and etoh rehab. D/c'd home with HHPT. F/u with pcp withion 1 week Physical Exam Vital Signs: Temp Pulse Resp BP Pulse Ox 98.3 F 90 16 117/41 L 96 10/02/18 11:55 10/02/18 13:55 10/02/18 12:22 10/02/18 11:55 10/02/18 12:22 Intake & Output 10/01/18 10/02/18 10/03/18 06:59 06:59 06:59 Intake Total 1789 955 537 Output Total 3300 2700 400 Balance -1511 -1745 137 Weight 58.8 kg 54.8 kg General appearance: PRESENT: no acute distress, thin Respiratory exam: PRESENT: rhonchi - Mild rhonchi on the left, symmetrical, unlabored, other. ABSENT: wheezes Cardiovascular exam: PRESENT: RRR, +S1, +S2 GI/Abdominal exam: PRESENT: normal bowel sounds, soft. ABSENT: tenderness Extremities exam: PRESENT: No edema Neurological exam: PRESENT: alert, awake, oriented to person, oriented to place, ABSENT: focal weakness Psychiatric exam: PRESENT: No SI/HI, no VH/AH Results Laboratory Results: 10/01/18 09:03 10/01/18 09:03 09/22/18 12:30 Creatine Kinase 147 Impressions: Chest X-Ray 09/22/18 11:59 IMPRESSION: Obstructive lung disease. No acute findings Qualifiers - * PATIENT BEING DISCHARGED WITH ANY OF THE FOLLOWING DIAGNOSIS: No
[2018-10-02 18:11] VITALS: BP 123/64
== END 2018-10-02 19:13 | disposition home or self-care (01) | DRG 432 ==
LOC: ER 11:30 → EH 15:14 → 3S 18:58
PROVIDERS: ADMIT Internal Medicine; ATTEND Internal Medicine
PROC: 3E0F73Z Introduction of Anti-inflammatory into Respiratory Tract, Via Natural or Artificial Opening (ICD-10-PCS; principal; 2018-09-23)
DX: K70.10 Alcoholic hepatitis without ascites (principal); K85.90 Acute pancreatitis without necrosis or infection, unspecified; E43 Unspecified severe protein-calorie malnutrition; Z68.1 Body mass index [BMI] 19.9 or less, adult; E86.0 Dehydration; E83.42 Hypomagnesemia; F32.9 Major depressive disorder, single episode, unspecified; J44.9 Chronic obstructive pulmonary disease, unspecified; F17.210 Nicotine dependence, cigarettes, uncomplicated; B36.9 Superficial mycosis, unspecified; Z60.2 Problems related to living alone; Z79.899 Other long term (current) drug therapy; Z82.3 Family history of stroke
CPT/HCPCS: 36415; 51702; 71045; 80048; 80053; 80061; 80069; 81001; 82140; 82550; 82803; 82962; 83605; 83690; 83735; 84100; 85025; 85027; 85610; 87040; 87077; 87086; 87186; 93005; 93010; 94640; 94799; 96360; 96361; 99291; J0290; J0610; J0690; J1650; J1652; J2060; J2270; J3370; J3411; J3480; J3490; J7030; J7060; J7620

== ENCOUNTER 2018-10-05 12:28 | Inpatient (IN) | payer MEDICAID, MEDICARE ==
[2018-10-05] MEDS ORDERED: NORMAL SALINE 1000 ML 1,000 ML IV ONE (12:46)
[2018-10-05] MEDS ORDERED: NORMAL SALINE 1000 ML 1,000 ML with POTASSIUM CHLORIDE 20 MEQ, MAGNESIUM SULFATE 8 MEQ,... IV ONE ×5 (12:47)
--- NOTE | 2018-10-05 12:49 | ER Document Report ---
ED Medical Screen (RME) - General Chief Complaint: General Weakness Stated Complaint: WEAKNESS Time Seen by Provider: 10/05/18 12:40 TRAVEL OUTSIDE OF THE [place] IN LAST 30 DAYS: No - Related Data Allergies/Adverse Reactions: No Known Allergies Allergy (Verified 10/05/18 12:29) Past Medical History - Social History Chew tobacco use (# tins/day): No Frequency of alcohol use: None Drug Abuse: None Pulmonary Medical History: Reports: Hx COPD Renal/ Medical History: Denies: Hx Peritoneal Dialysis Physical Exam - Vital signs Vitals: Temp Pulse Resp BP Pulse Ox 98.6 F 96 22 H 89/42 L 92 10/05/18 12:33 10/05/18 12:33 10/05/18 12:33 10/05/18 12:33 10/05/18 12:33 Course - Re-evaluation Re-evalutation: 10/05/18 12:48 Profoundly weak 73-year-old wasted former alcoholic. 3 presents after having been discharged 4 days prior from the hospital unable to get up at home too weak to move. Home health recommended he come back to the emergency department. I have seen and performed a rapid medical screening examination on this patient, workup has been initiated however there will require further evaluation reassessment and disposition determination from a secondary provider. - Vital Signs Vital signs: Temp Pulse Resp BP Pulse Ox 98.6 F 96 22 H 89/42 L 92 10/05/18 12:33 10/05/18 12:33 10/05/18 12:33 10/05/18 12:33 10/05/18 12:33 Doctor's Discharge - Discharge Referrals: ARMINDA TOM MD [Primary Care Provider] - Follow up as needed
[2018-10-05 13:33] LABS: ABSOLUTE BASOPHILS # (AUTO) 0.1 10^3/uL (0.0-0.2); ABSOLUTE LYMPHOCYTES (AUTO) 1.1 10^3/uL (0.5-4.7); ABSOLUTE MONOCYTES (AUTO) 0.9 10^3/uL (0.1-1.4); ABSOLUTE NEUT (AUTO) 8.1 10^3/uL (1.7-8.2); BASOPHILS % (AUTO) 1.1 % (0-2); EOSINOPHILS % (AUTO) 0.2 % (0-6); HEMATOCRIT 35.8 % (37.9-51.0); HEMOGLOBIN 12.4 g/dL (13.5-17.0); LYMPHOCYTES % (AUTO) 10.7 % (13-45); MEAN CORPUSCULAR HEMOGLOBIN 34.6 pg (27.0-33.4); MEAN CORPUSCULAR HGB CONC 34.6 g/dL (32.0-36.0); MEAN CORPUSCULAR VOLUME 100 fl (80-97); MONOCYTES % (AUTO) 8.6 % (3-13); PLATELET COUNT 359 10^3/uL (150-450); RED BLOOD COUNT 3.57 10^6/uL (4.35-5.55); RED CELL DISTRIBUTION WIDTH 16.6 % (11.5-14.0); SEGMENTED NEUTROPHILS % (AUTO) 79.4 % (42-78); TOTAL CELLS COUNTED % (AUTO) 100 %; WHITE BLOOD COUNT 10.3 10^3/uL (4.0-10.5)
[2018-10-05 13:50] LABS: ALANINE AMINOTRANSFERASE 55 U/L (21-72); ALBUMIN 3.2 g/dL (3.5-5.0); ALKALINE PHOSPHATASE 219 U/L (38-126); ANION GAP 7 (5-19); ASPARTATE AMINO TRANSFERASE 118 U/L (17-59); BILIRUBIN,TOTAL 1.5 mg/dL (0.2-1.3); BLOOD UREA NITROGEN 16 mg/dL (7-20); CALCIUM 8.3 mg/dL (8.4-10.2); CARBON DIOXIDE 29 mmol/L (22-30); CHLORIDE 98 mmol/L (98-107); CREATINE KINASE 27 U/L (55-170); GLUCOSE 111 mg/dL (75-110); LIPASE 262.7 U/L (23-300); POTASSIUM 4.1 mmol/L (3.6-5.0); SODIUM 133.9 mmol/L (137-145)
[2018-10-05 17:46] LABS: APPEARANCE,URINE CLOUDY; BILIRUBIN,URINE NEGATIVE (NEGATIVE); COLOR,URINE YELLOW; GLUCOSE, URINE NEGATIVE (NEGATIVE); KETONES,URINE TRACE mg/dL (NEGATIVE); LEUKOCYTE ESTERASE,URINE NEGATIVE (NEGATIVE); NITRITE,URINE NEGATIVE (NEGATIVE); PROTEIN,URINE 30 mg/dL (NEGATIVE); URINE SPECIFIC GRAVITY 1.018
--- NOTE | 2018-10-05 17:50 | ER Document Report ---
ED General - General Chief Complaint: General Weakness Stated Complaint: WEAKNESS Time Seen by Provider: 10/05/18 12:40 Notes: Patient is here due to weakness. He is unable to stand or walk or take care of himself. He lives alone. He is not eating anything or drinking anything for the past few days. He was admitted to this hospital from September 19 - October 02. His diagnoses include alcoholic hepatitis, malnutrition, dehydration, etc. He was discharged home to have home health services for 1/2-hour 3 times a week. Home health is said that he is too sick for them to take care of him. He is on home oxygen. He has no family members. His in April, and she was his only next of kin, and he has been drinking alcohol constantly since that occurred. He was brought in by a thoughtful and kind neighbor who is unable to take care of this patient. Neighbor has power of assistant prosecuting attorney. TRAVEL OUTSIDE OF THE [place] IN LAST 30 DAYS: No - Related Data Allergies/Adverse Reactions: No Known Allergies Allergy (Verified 10/05/18 12:29) Past Medical History - Social History Smoking Status: Current Every Day Smoker Chew tobacco use (# tins/day): No Frequency of alcohol use: Heavy - Since April, but none while in the hospital these past couple of weeks. Drug Abuse: None Family History: Reviewed & Not Pertinent, CVA Patient has suicidal ideation: No Patient has homicidal ideation: No Pulmonary Medical History: Reports: Hx COPD GI Medical History: Reports: Hx Hepatitis - Alcoholic Psychiatric Medical History: Reports: Hx Depression Review of Systems - Review of Systems Notes: REVIEW OF SYSTEMS: CONSTITUTIONAL : Denies fever. Complains of severe weakness. Unable to stand alone or walk. EENT: Denies eye, ear, nose or mouth or throat pain or other symptoms. CARDIOVASCULAR: Denies chest pain. RESPIRATORY: Denies cough, chest congestion, or shortness of breath. GASTROINTESTINAL: Denies abdominal pain or nausea, vomiting, or diarrhea. No appetite. GENITOURINARY: Denies difficulty or painful urinating, urinary frequency, blood in urine. MUSCULOSKELETAL: Denies back or neck pain. Denies joint pain or swelling. SKIN: Denies rash or skin lesions. Groin rash. NEUROLOGICAL: Denies LOC or altered mental status. Denies headache. Denies sensory loss or motor deficits. ALL OTHER SYSTEMS REVIEWED AND NEGATIVE. Physical Exam - Vital signs Vitals: Temp Pulse Resp BP Pulse Ox 98.6 F 96 22 H 89/42 L 92 10/05/18 12:33 10/05/18 12:33 10/05/18 12:33 10/05/18 12:33 10/05/18 12:33 Interpretation: Hypotensive - 89/54 Notes: PHYSICAL EXAMINATION: GENERAL: Frail and wasted appearing, in no acute distress. Blood pressure 89/42. HEAD: Atraumatic, normocephalic. EYES: Pupils equal round and reactive to light, extraocular movements intact. ENT: oropharynx clear without exudates. Tongue is dry and red colored. NECK: Normal range of motion, supple. LUNGS: Breath sounds clear and equal bilaterally. HEART: Regular rate and rhythm without murmurs. ABDOMEN: Soft, nontender. No guarding or rebound. No masses. BACK: No tenderness throughout entire back. EXTREMITIES: Normal range of motion without pain. NEUROLOGICAL: Normal speech, gait not tested because of patient weakness. Awake, alert, and oriented x3. PSYCH: Normal mood, normal affect. SKIN: Warm, dry, no rashes. Course - Re-evaluation Re-evalutation: 10/05/18 17:55 patient's neighbor brought him back saying that the patient is unable to care for himself at home. Home health came to evaluate the patient yesterday and said he was too sick for them to take care I have contacted the hospitalist service and they will admit the patient for further evaluation and referral to a rehab facility. Patient's blood pressure responded nicely to a liter of saline. His systolic blood pressure is 137 after a liter of saline. He now has infusing a vitamin bag and 1000 mL. - Vital Signs Vital signs: Temp Pulse Resp BP Pulse Ox 98.6 F 96 17 135/58 H 99 10/05/18 12:33 10/05/18 12:33 10/05/18 17:01 10/05/18 17:00 10/05/18 17:01 - Laboratory Result Diagrams: 10/05/18 13:00 10/05/18 13:00 Laboratory results interpreted by me: 10/05/18 10/05/18 10/05/18 13:00 13:00 17:10 RBC 3.57 L Hgb 12.4 L Hct 35.8 L MCV 100 H MCH 34.6 H RDW 16.6 H Seg Neutrophils % 79.4 H Lymphocytes % 10.7 L Sodium 133.9 L Glucose 111 H Calcium 8.3 L Total Bilirubin 1.5 H Direct Bilirubin 1.0 H AST 118 H Alkaline Phosphatase 219 H Creatine Kinase 27 L Albumin 3.2 L Urine Protein 30 H Urine Ketones TRACE H Urine Urobilinogen 2.0 H Urine Ascorbic Acid 40 H Discharge - Discharge Clinical Impression: Hypotension, Hyponatremia, Dehydration, Alcoholism, Weakness Condition: Stable Disposition: ADMITTED INPATIENT Admitting Provider: Hospitalist Unit Admitted: Medical Floor
[2018-10-05] MEDS ORDERED: ONDANSETRON HCL INJ/PF 4 MG/2 ML SDV IV PRN (18:15)
--- NOTE | 2018-10-05 18:15 | PDOC H&P ---
History of Present Illness Admission Date/PCP: MUNIRA LEBRON PA-C History of Present Illness: TRACIE ETIENNE is a 73 year old male with past medical history of tobacco dependence, COPD and alcoholism brought from home for difficulty standing and walking and decreased appetite. Of note patient was discharged on October 02 from this hospital after 10 days of hospitalization for alcoholic hepatitis, dehydration, malnutrition, severe dermatitis maceration excoriation involving the perineal area and hypomagnesemia and hyponatremia. During that admission, reportedly patient had been drinking constantly after the days of his in April 2018. Patient discharged home with home health. This morning the home health nurse evaluated the patient in the concluded patient is too weak to participate in physical therapy and recommended to visit ER. Patient does not have relatives or children and he is at the [facility] his neighbor who is now his POA. His blood work shows mildly deranged liver chemistry. Since he has been discharged from hospital patient is sober and no smoking. Past Medical History Pulmonary Medical History: Reports: Chronic Obstructive Pulmonary Disease (COPD) Social History Smoking Status: Former Smoker Frequency of Alcohol Use: Heavy Hx Recreational Drug Use: No Drugs: None Hx Prescription Drug Abuse: No - Advance Directive Resuscitation Status: Full Code Family History Family History: Reviewed & Not Pertinent, CVA Parental Family History Reviewed: Yes Children Family History Reviewed: Yes Sibling(s) Family History Reviewed.: Yes Medication/Allergy Home Medications: Albuterol Sulfate [Proair HFA Inhalation Aerosol 8.5 gm MDI] 2 puff IH Q4HP PRN 09/22/18 Acetaminophen [Tylenol 325 mg Tablet] 650 mg PO Q4HP PRN tablet 10/02/18 Clotrimazole/Betamethasone Dip [Lotrisone Cream 15 gm] 1 applic TOP BID 10 Days tube 10/02/18 Escitalopram Oxalate [Lexapro 10 mg Tablet] 10 mg PO DAILY 30 Days #30 tablet 10/02/18 Magnesium Oxide [Mag-Ox 400 mg Tablet] 400 mg PO BID 10 Days #20 tablet 10/02/18 Multivitamin [Tab-A-Lisandra (Multiple Vitamin) Tablet] 1 tab PO DAILY 30 Days #30 tablet 10/02/18 Silver Sulfadiazine [Silvadene 1% Cream 400 gm] 1 applic TP Q6HP PRN 14 Days jar 10/02/18 Thiamine HCl [Thiamine 100 mg Tablet] 100 mg PO DAILY 30 Days #30 tablet 8 Allergies/Adverse Reactions: No Known Allergies Allergy (Verified 10/05/18 12:29) Review of Systems Constitutional: PRESENT: as per HPI Ears: PRESENT: as per HPI Nose, Mouth, and Throat: PRESENT: as per HPI Cardiovascular: PRESENT: as per HPI Respiratory: PRESENT: as per HPI Gastrointestinal: PRESENT: as per HPI Genitourinary: PRESENT: as per HPI Integumentary: PRESENT: as per HPI Neurological: PRESENT: as per HPI Physical Exam Vital Signs: Temp Pulse Resp BP Pulse Ox 98.6 F 96 17 135/58 H 99 10/05/18 12:33 10/05/18 12:33 10/05/18 17:01 10/05/18 17:00 10/05/18 17:01 Intake & Output 10/04/18 10/05/18 10/06/18 06:59 06:59 06:59 Intake Total 1000 Balance 1000 Weight 44.4 kg General appearance: PRESENT: thin, other - Well-nourished Head exam: PRESENT: atraumatic Eye exam: PRESENT: conjunctiva pink Neck exam: ABSENT: carotid bruit, JVD, lymphadenopathy, thyromegaly Respiratory exam: PRESENT: clear to auscultation kody. ABSENT: rales, rhonchi, wheezes Cardiovascular exam: PRESENT: RRR. ABSENT: diastolic murmur, rubs, systolic murmur GI/Abdominal exam: PRESENT: normal bowel sounds, soft. ABSENT: distended, guarding, mass, organolmegaly, rebound, tenderness Extremities exam: PRESENT: other - Wasted Neurological exam: PRESENT: alert, awake, oriented to time, oriented to situation Psychiatric exam: PRESENT: depressed Skin exam: PRESENT: other - Maceration dermatitis and excoriation involving the perineal area Results Laboratory Results: 10/05/18 13:00 10/05/18 13:00 10/05/18 10/05/18 10/05/18 13:00 13:00 17:10 WBC 10.3 RBC 3.57 L Hgb 12.4 L Hct 35.8 L MCV 100 H MCH 34.6 H MCHC 34.6 RDW 16.6 H Plt Count 359 Seg Neutrophils % 79.4 H Lymphocytes % 10.7 L Monocytes % 8.6 Eosinophils % 0.2 Basophils % 1.1 Absolute Neutrophils 8.1 Absolute Lymphocytes 1.1 Absolute Monocytes 0.9 Absolute Eosinophils 0.0 Absolute Basophils 0.1 Sodium 133.9 L Potassium 4.1 Chloride 98 Carbon Dioxide 29 Anion Gap 7 BUN 16 Creatinine 0.57 Est GFR ( Amer) > 60 Est GFR (Non-Af Amer) > 60 Glucose 111 H Calcium 8.3 L Total Bilirubin 1.5 H AST 118 H ALT 55 Alkaline Phosphatase 219 H Total Protein 7.0 Albumin 3.2 L Lipase 262.7 Urine Color YELLOW Urine Appearance CLOUDY Urine pH 6.0 Ur Specific [place] 1.018 Urine Protein 30 H Urine Glucose (UA) NEGATIVE Urine Ketones TRACE H Urine Blood NEGATIVE Urine Nitrite NEGATIVE Ur Leukocyte Esterase NEGATIVE Urine WBC (Auto) 5 Urine RBC (Auto) 1 10/05/18 13:00 Creatine Kinase 27 L Assessment & Plan - Diagnosis (1) Debility and deconditioning Is this a current diagnosis for this admission?: Yes Plan: Patient qualify and benefit from short-term acute rehab. (2) Severe malnutrition Is this a current diagnosis for this admission?: Yes Plan: Nutritional support and will consult also painter hand. (3) Dermatitis and excoriation of perineum Is this a current diagnosis for this admission?: Yes Plan: Wound care and topical antibiotics. (4) Elevated liver chemistry Is this a current diagnosis for this admission?: Yes Plan: Alcohol induced improved (5) Alcoholism Is this a current diagnosis for this admission?: Yes Plan: Currently patient is sober for the last 10 days (6) COPD (chronic obstructive pulmonary disease) Qualifiers: Emphysema type: unspecified Is this a current diagnosis for this admission?: Yes Plan: As needed bronchodilators
[2018-10-05] MEDS ORDERED: MIRTAZAPINE 15 MG TABLET PO SCH (22:00)
[2018-10-05] MEDS: ENOXAPARIN SODIUM INJ 30 MG/0.3 ML DISP.SYRIN SUBCUT SCH (22:26)
[2018-10-06] MEDS: NORMAL SALINE 1000 ML 1,000 ML with POTASSIUM CHLORIDE 20 MEQ, MAGNESIUM SULFATE 8 MEQ,... IV SCH ×10 (02:10→21:45)
[2018-10-06] MEDS: LANSOPRAZOLE 30 MG TAB.RAP.DR PO SCH (05:48)
[2018-10-06 07:34] LABS: ALANINE AMINOTRANSFERASE 52 U/L (21-72); ALBUMIN 2.5 g/dL (3.5-5.0); ALKALINE PHOSPHATASE 185 U/L (38-126); ASPARTATE AMINO TRANSFERASE 96 U/L (17-59); BILIRUBIN,DIRECT 0.8 mg/dL (0.0-0.4); BILIRUBIN,TOTAL 1.2 mg/dL (0.2-1.3); BLOOD UREA NITROGEN 11 mg/dL (7-20); CALCIUM 7.8 mg/dL (8.4-10.2); GLUCOSE 84 mg/dL (75-110); PHOSPHORUS 2.9 mg/dL (2.5-4.5); POTASSIUM 3.6 mmol/L (3.6-5.0); TOTAL PROTEIN 5.5 g/dL (6.3-8.2)
[2018-10-06 07:39] LABS: CARBON DIOXIDE 28 mmol/L (22-30); CHLORIDE 108 mmol/L (98-107); SODIUM 140.1 mmol/L (137-145)
[2018-10-06 07:45] LABS: ANION GAP 4 (5-19)
[2018-10-06] MEDS: DRONABINOL 2.5 MG CAPSULE PO PRN (11:21)
[2018-10-06] MEDS: MEGESTROL ACETATE SUSP 400 MG/10 ML UDCUP PO SCH (11:21)
[2018-10-06] MEDS: ENOXAPARIN SODIUM INJ 30 MG/0.3 ML DISP.SYRIN SUBCUT SCH (11:21)
--- NOTE | 2018-10-06 16:47 | PDOC PROGRESS REPORT ---
Subjective Progress Note for:: 10/06/18 Subjective:: Mr. Del Toro is a very pleasant but unfortunate 73 years old male patient brought by his neighbors for debility, deconditioning and malnutrition. Patient is not able to get up or walk. He is not able to take care of himself. Patient had been drinking excessively since April after the days of his . His blood chemistry shows elevated liver enzymes and bilirubin. He has also very low albumin level which is a manifestation of his malnutrition. Currently patient is being treated with cautious hydration and has been started also on Marinol, Megace and Remeron to boost his appetite. Patient does not have kids or relatives to take care of him. Currently one of his neighbors is his POA. Patient will benefit from placement to [facility]. Reason For Visit: SEVERE MALNUTRITION, DEBILITY AND DECONDITIONING Physical Exam Vital Signs: Temp Pulse Resp BP Pulse Ox 98.4 F 67 20 144/71 H 95 10/06/18 07:30 10/06/18 07:30 10/06/18 07:30 10/06/18 07:30 10/06/18 07:30 Intake & Output 10/05/18 10/06/18 10/07/18 06:59 06:59 06:59 Intake Total 2289 Output Total 100 Balance 2189 Weight 49 kg General appearance: PRESENT: no acute distress, thin Head exam: PRESENT: atraumatic Mouth exam: PRESENT: moist Neck exam: ABSENT: carotid bruit, JVD, lymphadenopathy, thyromegaly Respiratory exam: PRESENT: clear to auscultation kody. ABSENT: rales, rhonchi, wheezes Cardiovascular exam: PRESENT: RRR. ABSENT: diastolic murmur, rubs, systolic murmur GI/Abdominal exam: PRESENT: other - Scaphoid abdomen Neurological exam: PRESENT: awake, oriented to time, oriented to situation Results Laboratory Results: 10/05/18 13:00 10/06/18 06:52 10/05/18 10/06/18 10/06/18 17:10 06:52 06:52 Sodium 140.1 Potassium 3.6 Chloride 108 H Carbon Dioxide 28 Anion Gap 4 L BUN 11 Creatinine 0.53 Est GFR ( Amer) > 60 Est GFR (Non-Af Amer) > 60 Glucose 84 Calcium 7.8 L Phosphorus 2.9 Magnesium 2.4 H Total Bilirubin 1.2 AST 96 H ALT 52 Alkaline Phosphatase 185 H Total Protein 5.5 L Albumin 2.5 L TSH 1.69 Urine Color YELLOW Urine Appearance CLOUDY Urine pH 6.0 Ur Specific [place] 1.018 Urine Protein 30 H Urine Glucose (UA) NEGATIVE Urine Ketones TRACE H Urine Blood NEGATIVE Urine Nitrite NEGATIVE Ur Leukocyte Esterase NEGATIVE Urine WBC (Auto) 5 Urine RBC (Auto) 1 10/05/18 13:00 Creatine Kinase 27 L Assessment & Plan - Diagnosis (1) Debility and deconditioning Is this a current diagnosis for this admission?: Yes Plan: Patient qualify and benefit from short-term acute rehab. (2) Severe malnutrition Is this a current diagnosis for this admission?: Yes Plan: Nutritional support and will consult also environmental emergencies assistant. (3) Dermatitis and excoriation of perineum Is this a current diagnosis for this admission?: Yes Plan: Wound care and topical antibiotics. (4) Elevated liver chemistry Is this a current diagnosis for this admission?: Yes Plan: Alcohol induced improved (5) Alcoholism Is this a current diagnosis for this admission?: Yes Plan: Currently patient is sober for the last 10 days (6) COPD (chronic obstructive pulmonary disease) Qualifiers: Emphysema type: unspecified Is this a current diagnosis for this admission?: Yes Plan: As needed bronchodilators
[2018-10-06] MEDS: IPRATROPIUM/ALBUTEROL 0.5-2.5 MG/3 ML AMPUL NEB SCH ×2 (16:48→20:00)
[2018-10-06] MEDS ORDERED: THIAMINE HCL 100 MG, FOLIC ACID 1 MG in NORMAL SALINE 250 ML IV ONE ×2 (16:48→18:30)
[2018-10-06] MEDS: MIRTAZAPINE 15 MG TABLET PO SCH (21:45)
[2018-10-07] MEDS: IPRATROPIUM/ALBUTEROL 0.5-2.5 MG/3 ML AMPUL NEB SCH ×4 (01:33→19:19)
[2018-10-07] MEDS ORDERED: MAG HYDROX/AL HYDROX/SIMETH SUSP 30 ML UDCUP PO ONE (01:45)
[2018-10-07] MEDS: LANSOPRAZOLE 30 MG TAB.RAP.DR PO SCH (05:50)
[2018-10-07] MEDS: MEGESTROL ACETATE SUSP 400 MG/10 ML UDCUP PO SCH (10:00)
[2018-10-07] MEDS: DRONABINOL 2.5 MG CAPSULE PO PRN (12:16)
[2018-10-07] MEDS: ENOXAPARIN SODIUM INJ 30 MG/0.3 ML DISP.SYRIN SUBCUT SCH (12:19)
[2018-10-07] MEDS: NICOTINE 14 MG/24 HR PATCH.TD24 TD PRN (14:40)
[2018-10-07] MEDS: NORMAL SALINE 1000 ML 1,000 ML with POTASSIUM CHLORIDE 20 MEQ, MAGNESIUM SULFATE 8 MEQ,... IV SCH ×5 (21:39)
[2018-10-07] MEDS: MIRTAZAPINE 15 MG TABLET PO SCH (21:46)
[2018-10-08] MEDS: IPRATROPIUM/ALBUTEROL 0.5-2.5 MG/3 ML AMPUL NEB SCH ×4 (01:35→19:22)
--- NOTE | 2018-10-08 09:01 | PDOC PROGRESS REPORT ---
Subjective Progress Note for:: 10/07/18 Subjective:: I seen patient sleeping quietly. No significant event overnight. Reason For Visit: SEVERE MALNUTRITION, DEBILITY AND DECONDITIONING Physical Exam Vital Signs: Temp Pulse Resp BP Pulse Ox 98.0 F 77 18 140/73 H 98 10/08/18 08:08 10/08/18 08:08 10/08/18 08:08 10/08/18 08:08 10/08/18 08:08 Intake & Output 10/07/18 10/08/18 10/09/18 06:59 06:59 06:59 Intake Total 1446.2 2390 Output Total 1600 1295 Balance -153.8 1095 Weight 47.9 kg 46.7 kg General appearance: PRESENT: no acute distress Head exam: PRESENT: atraumatic Respiratory exam: PRESENT: clear to auscultation kody. ABSENT: rales, rhonchi, wheezes Cardiovascular exam: PRESENT: RRR. ABSENT: diastolic murmur, rubs, systolic murmur Results Laboratory Results: 10/05/18 13:00 10/06/18 06:52 10/05/18 13:00 Creatine Kinase 27 L Assessment & Plan - Diagnosis (1) Debility and deconditioning Is this a current diagnosis for this admission?: Yes Plan: Patient qualify and benefit from short-term acute rehab. (2) Severe malnutrition Is this a current diagnosis for this admission?: Yes Plan: Nutritional support and will consult also ssds mk 2 advanced operator. (3) Dermatitis and excoriation of perineum Is this a current diagnosis for this admission?: Yes Plan: Wound care and topical antibiotics. (4) Elevated liver chemistry Is this a current diagnosis for this admission?: Yes Plan: Alcohol induced improved (5) Alcoholism Is this a current diagnosis for this admission?: Yes Plan: Currently patient is sober for the last 10 days (6) COPD (chronic obstructive pulmonary disease) Qualifiers: Emphysema type: unspecified Is this a current diagnosis for this admission?: Yes Plan: As needed bronchodilators
[2018-10-08] MEDS: LANSOPRAZOLE 30 MG TAB.RAP.DR PO SCH (10:16)
[2018-10-08] MEDS: MEGESTROL ACETATE SUSP 400 MG/10 ML UDCUP PO SCH (10:16)
[2018-10-08] MEDS: ENOXAPARIN SODIUM INJ 30 MG/0.3 ML DISP.SYRIN SUBCUT SCH (10:16)
--- NOTE | 2018-10-08 15:32 | PDOC PROGRESS REPORT ---
Subjective Progress Note for:: 10/08/18 Subjective:: I seen patient awake alert oriented. He claims he has a restful night. He finished his breakfast 100%. He is also able to participate with physical therapy. Patient qualifies for inpatient rehab. Reason For Visit: SEVERE MALNUTRITION, DEBILITY AND DECONDITIONING Physical Exam Vital Signs: Temp Pulse Resp BP Pulse Ox 98.4 F 91 16 127/69 H 98 10/08/18 12:44 10/08/18 13:51 10/08/18 13:51 10/08/18 12:44 10/08/18 13:51 Intake & Output 10/07/18 10/08/18 10/09/18 06:59 06:59 06:59 Intake Total 1446.2 2390 713 Output Total 1600 1295 600 Balance -153.8 1095 113 Weight 47.9 kg 46.7 kg General appearance: PRESENT: thin, other - Bitemporal wasting Eye exam: PRESENT: conjunctiva pink Neck exam: ABSENT: carotid bruit, JVD, lymphadenopathy, thyromegaly Respiratory exam: PRESENT: clear to auscultation kody. ABSENT: rales, rhonchi, wheezes Cardiovascular exam: PRESENT: RRR. ABSENT: diastolic murmur, rubs, systolic murmur Neurological exam: PRESENT: alert, awake, oriented to place, oriented to time, oriented to situation. ABSENT: motor sensory deficit Psychiatric exam: PRESENT: normal mood Results Laboratory Results: 10/05/18 13:00 10/06/18 06:52 10/05/18 13:00 Creatine Kinase 27 L Assessment & Plan - Diagnosis (1) Debility and deconditioning Is this a current diagnosis for this admission?: Yes Plan: Patient qualify and benefit from short-term acute rehab. (2) Severe malnutrition Is this a current diagnosis for this admission?: Yes Plan: Nutritional support and will consult also cash clerk. (3) Dermatitis and excoriation of perineum Is this a current diagnosis for this admission?: Yes Plan: Wound care and topical antibiotics. (4) Elevated liver chemistry Is this a current diagnosis for this admission?: Yes Plan: Alcohol induced improved (5) Alcoholism Is this a current diagnosis for this admission?: Yes Plan: Currently patient is sober for the last 10 days (6) COPD (chronic obstructive pulmonary disease) Qualifiers: Emphysema type: unspecified Is this a current diagnosis for this admission?: Yes Plan: As needed bronchodilators
[2018-10-08] MEDS: NICOTINE 14 MG/24 HR PATCH.TD24 TD PRN ×2 (17:47→17:48)
[2018-10-08] MEDS ORDERED: NORMAL SALINE 1000 ML 1,000 ML with POTASSIUM CHLORIDE 20 MEQ, MAGNESIUM SULFATE 8 MEQ,... IV SCH ×5 (18:00)
[2018-10-08] MEDS: ACETAMINOPHEN 325 MG TABLET PO PRN (19:39)
[2018-10-08] MEDS: MIRTAZAPINE 15 MG TABLET PO SCH (21:09)
[2018-10-09] MEDS: IPRATROPIUM/ALBUTEROL 0.5-2.5 MG/3 ML AMPUL NEB SCH ×4 (02:18→20:18)
[2018-10-09] MEDS: LANSOPRAZOLE 30 MG TAB.RAP.DR PO SCH (05:29)
[2018-10-09] MEDS: FOLIC ACID 1 MG TABLET PO SCH (09:15)
[2018-10-09] MEDS: THIAMINE HCL 100 MG TABLET PO SCH (09:15)
[2018-10-09] MEDS: MEGESTROL ACETATE SUSP 400 MG/10 ML UDCUP PO SCH (09:15)
[2018-10-09] MEDS: ENOXAPARIN SODIUM INJ 30 MG/0.3 ML DISP.SYRIN SUBCUT SCH (09:15)
--- NOTE | 2018-10-09 12:30 | PDOC PROGRESS REPORT ---
Subjective Subjective:: Mr. Del Toro is a very pleasant but unfortunate 73 years old male patient brought by his neighbors for debility, deconditioning and malnutrition. Patient is not able to get up or walk. He is not able to take care of himself. Patient had been drinking excessively since April after the days of his . His blood chemistry shows elevated liver enzymes and bilirubin. He has also very low albumin level which is a manifestation of his malnutrition. Patient has been started on Marinol, Megace and Remeron to boost his appetite. This morning I seen patient resting in bed comfortably. He is awake alert oriented. He complains of tremor of his hand which might be related to long-standing alcohol use but I put him on propranolol 10 mg p.o. daily in case if it is benign familial tremor. Patient does not have kids or relatives to take care of him. Currently one of his neighbors is his POA. Patient has been awaiting placement to rehab. Reason For Visit: SEVERE MALNUTRITION, DEBILITY AND DECONDITIONING Physical Exam Vital Signs: Temp Pulse Resp BP Pulse Ox 98.4 F 84 12 137/67 H 94 10/09/18 07:20 10/09/18 08:16 10/09/18 08:16 10/09/18 07:20 10/09/18 08:16 Intake & Output 10/08/18 10/09/18 10/10/18 06:59 06:59 06:59 Intake Total 2390 2999 Output Total 1295 1550 150 Balance 1095 1449 -150 Weight 46.7 kg 45.9 kg General appearance: PRESENT: no acute distress Head exam: PRESENT: atraumatic Eye exam: PRESENT: conjunctiva pink Mouth exam: PRESENT: moist Neck exam: ABSENT: carotid bruit, JVD, lymphadenopathy, thyromegaly Respiratory exam: PRESENT: clear to auscultation kody. ABSENT: rales, rhonchi, wheezes Cardiovascular exam: PRESENT: RRR. ABSENT: diastolic murmur, rubs, systolic m urmur GI/Abdominal exam: PRESENT: normal bowel sounds, soft. ABSENT: distended, guarding, mass, organolmegaly, rebound, tenderness Neurological exam: PRESENT: alert, awake, oriented to time, oriented to situation Results Laboratory Results: 10/05/18 13:00 10/06/18 06:52 10/05/18 13:00 Creatine Kinase 27 L Assessment & Plan - Diagnosis (1) Debility and deconditioning Is this a current diagnosis for this admission?: Yes Plan: Patient qualify and benefit from short-term acute rehab. (2) Severe malnutrition Is this a current diagnosis for this admission?: Yes Plan: Nutritional support and will consult also hospice consultant. (3) Dermatitis and excoriation of perineum Is this a current diagnosis for this admission?: Yes Plan: Wound care and topical antibiotics. (4) Elevated liver chemistry Is this a current diagnosis for this admission?: Yes Plan: Alcohol induced improved (5) Alcoholism Is this a current diagnosis for this admission?: Yes Plan: Currently patient is sober for the last 10 days (6) COPD (chronic obstructive pulmonary disease) Qualifiers: Emphysema type: unspecified Is this a current diagnosis for this admission?: Yes Plan: As needed bronchodilators
[2018-10-09] MEDS: PROPRANOLOL HCL 10 MG TABLET PO SCH (14:29)
[2018-10-09] MEDS: ACETAMINOPHEN 325 MG TABLET PO PRN (14:29)
[2018-10-09] MEDS: KETOROLAC TROMETHAMINE INJ/PF 30 MG/1 ML SDV IM PRN (18:24)
[2018-10-09] MEDS: MIRTAZAPINE 15 MG TABLET PO SCH (21:43)
[2018-10-10] MEDS: KETOROLAC TROMETHAMINE INJ/PF 30 MG/1 ML SDV IM PRN ×3 (01:03→21:36)
[2018-10-10] MEDS: IPRATROPIUM/ALBUTEROL 0.5-2.5 MG/3 ML AMPUL NEB SCH ×4 (02:13→19:59)
[2018-10-10] MEDS: LANSOPRAZOLE 30 MG TAB.RAP.DR PO SCH (05:52)
[2018-10-10] MEDS: NICOTINE 14 MG/24 HR PATCH.TD24 TD PRN (09:07)
[2018-10-10] MEDS: FOLIC ACID 1 MG TABLET PO SCH (09:08)
[2018-10-10] MEDS: THIAMINE HCL 100 MG TABLET PO SCH (09:08)
[2018-10-10] MEDS: MEGESTROL ACETATE SUSP 400 MG/10 ML UDCUP PO SCH (09:09)
[2018-10-10] MEDS: PROPRANOLOL HCL 10 MG TABLET PO SCH (09:09)
[2018-10-10] MEDS: ENOXAPARIN SODIUM INJ 30 MG/0.3 ML DISP.SYRIN SUBCUT SCH (09:11)
[2018-10-10] MEDS: NYSTATIN/TRIAMCIN CREAM 15 GM TP SCH ×2 (14:32→19:02)
--- NOTE | 2018-10-10 18:49 | PDOC PROGRESS REPORT ---
Subjective Progress Note for:: 10/10/18 Subjective:: No adverse events overnight. He tells me that he is got some irritation in his scrotum and perineum. He said it has been like that for a while. Is not as bad today as it has been in previous days. No fevers. No shortness of breath. Reason For Visit: SEVERE MALNUTRITION, DEBILITY AND DECONDITIONING Physical Exam Vital Signs: Temp Pulse Resp BP Pulse Ox 99.2 F 75 17 120/56 L 99 10/10/18 15:48 10/10/18 15:48 10/10/18 15:48 10/10/18 15:48 10/10/18 15:48 Intake & Output 10/09/18 10/10/18 10/11/18 06:59 06:59 06:59 Intake Total 2999 902 502 Output Total 1550 1250 230 Balance 1449 -348 272 Weight 45.9 kg 45.4 kg General appearance: PRESENT: no acute distress, cooperative, disheveled, thin Respiratory exam: PRESENT: clear to auscultation kody, symmetrical, unlabored. ABSENT: accessory muscle use, rales, rhonchi, tachypnea, wheezes Cardiovascular exam: PRESENT: RRR, +S1, +S2 GI/Abdominal exam: PRESENT: normal bowel sounds, soft. ABSENT: distended, guarding, rebound, tenderness Gentrourinary exam: PRESENT: erythema - There was some generalized erythema in his groin, scrotum, and perineum Extremities exam: ABSENT: clubbing, pedal edema Musculoskeletal exam: PRESENT: normal inspection. ABSENT: deformity Neurological exam: PRESENT: alert, awake, oriented to person, oriented to place, oriented to time, oriented to situation Psychiatric exam: PRESENT: appropriate affect, normal mood Skin exam: PRESENT: other - He had 3 pressure sores, one on each buttock that was covered with a foam gauze, and one that had healed and scabbed over on his sacrum. Erythema was well demarcated. No surrounding erythema or evidence of exudates. Results Laboratory Results: 10/05/18 13:00 10/06/18 06:52 10/05/18 13:00 Creatine Kinase 27 L Assessment & Plan - Diagnosis (1) Dermatitis and excoriation of perineum Is this a current diagnosis for this admission?: Yes Plan: I have ordered some nystatin cream to be applied to the area, and then a barrier cream can be applied over that. (2) Severe malnutrition Is this a current diagnosis for this admission?: Yes Plan: He is been put on Megace and Marinol appetite has improved. He is got the pressure sores on his buttocks and sacrum, but he is able to move his legs without any trouble, and he is able to turn himself in the bed, so recommended that he stay on his side and turn every couple of hours to get pressure off of his backside. Were currently working on placement for him. - Time Time Spent with patient: 15-24 minutes
[2018-10-10] MEDS: MIRTAZAPINE 15 MG TABLET PO SCH (21:32)
[2018-10-11] MEDS: IPRATROPIUM/ALBUTEROL 0.5-2.5 MG/3 ML AMPUL NEB SCH ×4 (02:28→19:49)
[2018-10-11] MEDS: LANSOPRAZOLE 30 MG TAB.RAP.DR PO SCH (05:53)
[2018-10-11] MEDS: FOLIC ACID 1 MG TABLET PO SCH (10:48)
[2018-10-11] MEDS: PROPRANOLOL HCL 10 MG TABLET PO SCH (10:48)
[2018-10-11] MEDS: THIAMINE HCL 100 MG TABLET PO SCH (10:48)
[2018-10-11] MEDS: NYSTATIN/TRIAMCIN CREAM 15 GM TP SCH ×3 (10:48→19:35)
[2018-10-11] MEDS: MEGESTROL ACETATE SUSP 400 MG/10 ML UDCUP PO SCH (10:48)
[2018-10-11] MEDS: ENOXAPARIN SODIUM INJ 30 MG/0.3 ML DISP.SYRIN SUBCUT SCH (10:49)
[2018-10-11] MEDS: KETOROLAC TROMETHAMINE INJ/PF 30 MG/1 ML SDV IM PRN ×2 (15:31→22:26)
--- NOTE | 2018-10-11 19:39 | PDOC PROGRESS REPORT ---
Subjective Progress Note for:: 10/11/18 Subjective:: No adverse events overnight. He said he felt a little short of breath today. He was sitting up on the edge of the bed because he was tired of laying down. His appetite is still been good. Reason For Visit: SEVERE MALNUTRITION, DEBILITY AND DECONDITIONING Physical Exam Vital Signs: Temp Pulse Resp BP Pulse Ox 98.2 F 88 16 109/54 L 99 10/11/18 15:12 10/11/18 15:12 10/11/18 15:12 10/11/18 15:12 10/11/18 15:12 Intake & Output 10/10/18 10/11/18 10/12/18 06:59 06:59 06:59 Intake Total 902 620 808 Output Total 1250 760 320 Balance -348 -140 488 Weight 45.4 kg 46.5 kg General appearance: PRESENT: no acute distress, cooperative, disheveled, thin Respiratory exam: PRESENT: Decreased breath sounds bilaterally, symmetrical, unlabored. ABSENT: accessory muscle use, rales, rhonchi, tachypnea, wheezes Cardiovascular exam: PRESENT: RRR, +S1, +S2 GI/Abdominal exam: PRESENT: normal bowel sounds, soft. ABSENT: distended, guarding, rebound, tenderness Gentrourinary exam: PRESENT: erythema - There was some generalized erythema in his groin, scrotum, and perineum Extremities exam: ABSENT: clubbing, pedal edema Musculoskeletal exam: PRESENT: normal inspection. ABSENT: deformity Neurological exam: PRESENT: alert, awake, oriented to person, oriented to place, oriented to time, oriented to situation Psychiatric exam: PRESENT: appropriate affect, normal mood Skin exam: PRESENT: other - He had 3 pressure sores, one on each buttock that was covered with a foam gauze, and one that had healed and scabbed over on his sacrum. Erythema was well demarcated. No surrounding erythema or evidence of exudates. Results Laboratory Results: 10/05/18 13:00 10/06/18 06:52 10/05/18 13:00 Creatine Kinase 27 L Assessment & Plan - Diagnosis (1) Dermatitis and excoriation of perineum Is this a current diagnosis for this admission?: Yes Plan: Continue nystatin cream and barrier cream to the affected area (2) Severe malnutrition Is this a current diagnosis for this admission?: Yes Plan: He is been put on Megace and Marinol appetite has improved. He is got the pressure sores on his buttocks and sacrum, but he is able to move his legs without any trouble, and he is able to turn himself in the bed, so recommended that he stay on his side and turn every couple of hours to get pressure off of his backside. Were currently working on placement for him. (3) COPD (chronic obstructive pulmonary disease) Qualifiers: Emphysema type: unspecified Is this a current diagnosis for this admission?: Yes Plan: Ordered some as needed nebulizer treatments for him - Time Time Spent with patient: 15-24 minutes
[2018-10-11] MEDS: MIRTAZAPINE 15 MG TABLET PO SCH (22:27)
[2018-10-12] MEDS: IPRATROPIUM/ALBUTEROL 0.5-2.5 MG/3 ML AMPUL NEB SCH ×4 (01:55→19:53)
[2018-10-12] MEDS: LANSOPRAZOLE 30 MG TAB.RAP.DR PO SCH ×2 (05:09→05:11)
[2018-10-12] MEDS ORDERED: ONDANSETRON HCL INJ/PF 4 MG/2 ML SDV IV PRN (09:30)
[2018-10-12] MEDS: PROPRANOLOL HCL 10 MG TABLET PO SCH (10:38)
[2018-10-12] MEDS: FOLIC ACID 1 MG TABLET PO SCH (10:39)
[2018-10-12] MEDS: THIAMINE HCL 100 MG TABLET PO SCH (10:39)
[2018-10-12] MEDS: MEGESTROL ACETATE SUSP 400 MG/10 ML UDCUP PO SCH (10:40)
[2018-10-12] MEDS: NYSTATIN/TRIAMCIN CREAM 15 GM TP SCH ×3 (10:40→18:21)
[2018-10-12] MEDS: ENOXAPARIN SODIUM INJ 30 MG/0.3 ML DISP.SYRIN SUBCUT SCH (10:44)
[2018-10-12] MEDS ORDERED: SODIUM CHLORIDE NASAL SPRAY 44 ML NASL PRN (13:13)
[2018-10-12] MEDS: KETOROLAC TROMETHAMINE INJ/PF 30 MG/1 ML SDV IM PRN (13:39)
--- NOTE | 2018-10-12 18:38 | PDOC PROGRESS REPORT ---
Subjective Progress Note for:: 10/12/18 Subjective:: No adverse events overnight. He is complaining of a lot of sinus congestion and dryness from the oxygen. He has had no cough or shortness of breath. Reason For Visit: SEVERE MALNUTRITION, DEBILITY AND DECONDITIONING Physical Exam Vital Signs: Temp Pulse Resp BP Pulse Ox 98.2 F 81 16 114/53 L 95 10/12/18 11:24 10/12/18 13:32 10/12/18 13:32 10/12/18 11:24 10/12/18 13:32 Intake & Output 10/11/18 10/12/18 10/13/18 06:59 06:59 06:59 Intake Total 620 808 522 Output Total 760 720 511 Balance -140 88 11 Weight 46.5 kg 46 kg General appearance: PRESENT: no acute distress, cooperative, disheveled, thin Respiratory exam: PRESENT: Decreased breath sounds bilaterally, symmetrical, un labored. ABSENT: accessory muscle use, rales, rhonchi, tachypnea, wheezes Cardiovascular exam: PRESENT: RRR, +S1, +S2 GI/Abdominal exam: PRESENT: normal bowel sounds, soft. ABSENT: distended, guarding, rebound, tenderness Gentrourinary exam: PRESENT: erythema - There was some generalized erythema in his groin, scrotum, and perineum Extremities exam: ABSENT: clubbing, pedal edema Musculoskeletal exam: PRESENT: normal inspection. ABSENT: deformity Neurological exam: PRESENT: alert, awake, oriented to person, oriented to place, oriented to time, oriented to situation Psychiatric exam: PRESENT: appropriate affect, normal mood Skin exam: PRESENT: other - He had 3 pressure sores, one on each buttock that was covered with a foam gauze, and one that had healed and scabbed over on his sacrum. Erythema was well demarcated. No surrounding erythema or evidence of exudates. Results Laboratory Results: 10/05/18 13:00 10/06/18 06:52 10/05/18 13:00 Creatine Kinase 27 L Assessment & Plan - Diagnosis (1) Dermatitis and excoriation of perineum Is this a current diagnosis for this admission?: Yes Plan: Continue nystatin cream and barrier cream to the affected area (2) Severe malnutrition Is this a current diagnosis for this admission?: Yes Plan: He is been put on Megace and Marinol appetite has improved. He is got the pressure sores on his buttocks and sacrum, but he is able to move his legs without any trouble, and he is able to turn himself in the bed, so recommended that he stay on his side and turn every couple of hours to get pressure off of his backside. (3) COPD (chronic obstructive pulmonary disease) Qualifiers: Emphysema type: unspecified Is this a current diagnosis for this admission?: Yes Plan: Ordered some as needed nebulizer treatments for him. We are going to check to s if he needs oxygen when he goes home. - Time Time Spent with patient: 15-24 minutes
[2018-10-12] MEDS: MIRTAZAPINE 15 MG TABLET PO SCH (21:44)
[2018-10-13] MEDS: IPRATROPIUM/ALBUTEROL 0.5-2.5 MG/3 ML AMPUL NEB SCH ×3 (02:21→13:56)
[2018-10-13] MEDS ORDERED: LANSOPRAZOLE 30 MG TAB.RAP.DR PO SCH (06:00)
[2018-10-13 08:42] VITALS: BP 128/60
[2018-10-13] MEDS: THIAMINE HCL 100 MG TABLET PO SCH (10:24)
[2018-10-13] MEDS: FOLIC ACID 1 MG TABLET PO SCH (10:24)
[2018-10-13] MEDS: MEGESTROL ACETATE SUSP 400 MG/10 ML UDCUP PO SCH (10:24)
[2018-10-13] MEDS: NYSTATIN/TRIAMCIN CREAM 15 GM TP SCH (10:24)
[2018-10-13] MEDS: NICOTINE 14 MG/24 HR PATCH.TD24 TD PRN (10:24)
[2018-10-13] MEDS: PROPRANOLOL HCL 10 MG TABLET PO SCH (10:24)
[2018-10-13] MEDS: ENOXAPARIN SODIUM INJ 30 MG/0.3 ML DISP.SYRIN SUBCUT SCH (10:29)
[2018-10-13] MEDS ORDERED: ALBUTEROL SULFATE HFA (90 MCG/PUFF) 200 PUFF/8.5 GM MDI IH PRN (14:18)
--- NOTE | 2018-10-13 20:03 | PDOC DISCHARGE SUMMARY ---
General - Admit/Disc Date/PCP Admission Date/Primary Care Provider: 10/05/18 18:07 MUNIRA LEBRON PA-C Discharge Date: 10/13/18 - Discharge Diagnosis (1) Dermatitis and excoriation of perineum Is this a current diagnosis for this admission?: Yes Summary: This resolved with some nystatin and steroid cream along with some barrier cream. (2) Severe malnutrition Is this a current diagnosis for this admission?: Yes Summary: We gave him some Megace to boost his appetite here and it seemed to do fairly well. I do not want to put him on it long-term because he does not have a cancer diagnosis and there is increased risk of thrombosis with this medication as well as some other undesirable side effects. (3) COPD (chronic obstructive pulmonary disease) Is this a current diagnosis for this admission?: Yes Summary: As it turns out he is oxygen dependent, so we got him some of that. The only medication he was offered at home was an as needed albuterol inhaler, and so I started him on Spiriva. - Additional Information Resuscitation Status: Full Code Discharge Diet: Regular Discharge Activity: Supervised Activity Prescriptions: Tiotropium [place] [Spiriva Respimat] 4 gm IH DAILY #1 mist.inhal Home Medications: Albuterol Sulfate [Proair HFA Inhalation Aerosol 8.5 gm MDI] 2 puff IH Q4HP PRN 09/22/18 Clotrimazole/Betamethasone Dip [Lotrisone Cream 15 gm] 1 applic TOP BID 10 Days tube 10/02/18 Escitalopram Oxalate [Lexapro 10 mg Tablet] 10 mg PO DAILY 30 Days #30 tablet 10/02/18 Multivitamin [Tab-A-Lisandra (Multiple Vitamin) Tablet] 1 tab PO DAILY 30 Days #30 tablet 10/02/18 Thiamine HCl [Thiamine 100 mg Tablet] 100 mg PO DAILY 30 Days #30 tablet 10/02/18 Acetaminophen [Tylenol 325 mg Tablet] 650 mg PO Q4HP PRN 10/05/18 Magnesium Oxide [Mag-Ox 400 mg Tablet] 400 mg PO BID 10/05/18 Silver Sulfadiazine [Silvadene 1% Cream 400 gm] 1 applic TOP Q6HP PRN 10/05/18 Tiotropium [place] [Spiriva Respimat] 4 gm IH DAILY #1 mist.inhal 10/13/18 History of Present Illness History of Present Illness: TRACIE ETIENNE is a 73 year old male with past medical history of tobacco dependence, COPD and alcoholism brought from home for difficulty standing and walking and decreased appetite. Of note patient was discharged on October 02 from this hospital after 10 days of hospitalization for alcoholic hepatitis, dehydration, malnutrition, severe dermatitis maceration excoriation involving the perineal area and hypomagnesemia and hyponatremia. During that admission, reportedly patient had been drinking constantly after the days of his in April 2018. Patient discharged home with home health. This morning the home health nurse evaluated the patient in the concluded patient is too weak to participate in physical therapy and recommended to visit ER. Patient does not have relatives or children and he is at the [facility] his neighbor who is now his POA. His blood work shows mildly deranged liver chemistry. Since he has been discharged from hospital patient is sober and no smoking. Hospital Course Hospital Course: He took some Megace for a few days and it helped to boost his appetite and he was eating fairly well. He also had 3 pressure sores on his backside, the ones on his buttocks were each stage II, and the one on his sacrum had healed over. These were present on admission and had been noticed during his previous hospitalization. He is actually able to get up and move around and move himself around in the bed and so we encouraged him to turn himself every couple of hours to keep pressure off of them. We try to get him into a [facility] facility and we could not, so we try to get him into a 3 different acute rehab and all of those were denied. Therefore we set him up with home health and home physical therapy. He also has COPD, we started him on some Spiriva, he was actually noted to be hypoxemic on room air. He did not appear to be acutely exacerbated, and he qualify for home oxygen, which we arranged. His labs and examination were reassuring and he was discharged in good condition. Physical Exam Vital Signs: Temp Pulse Resp BP Pulse Ox 98.2 F 87 12 128/60 H 93 10/13/18 14:09 10/13/18 14:09 10/13/18 14:09 10/13/18 14:09 10/13/18 14:09 Intake & Output 10/12/18 10/13/18 10/14/18 06:59 06:59 06:59 Intake Total 808 522 Output Total 775 897 Balance 88 -375 Weight 46 kg 46 kg General appearance: PRESENT: no acute distress, cooperative, disheveled, thin Respiratory exam: PRESENT: Decreased breath sounds bilaterally, symmetrical, unlabored. ABSENT: accessory muscle use, rales, rhonchi, tachypnea, wheezes Cardiovascular exam: PRESENT: RRR, +S1, +S2 GI/Abdominal exam: PRESENT: normal bowel sounds, soft. ABSENT: distended, guarding, rebound, tenderness Gentrourinary exam: PRESENT: erythema - There was some generalized erythema in his groin, scrotum, and perineum Extremities exam: ABSENT: clubbing, pedal edema Musculoskeletal exam: PRESENT: normal inspection. ABSENT: deformity Neurological exam: PRESENT: alert, awake, oriented to person, oriented to place, oriented to time, oriented to situation Psychiatric exam: PRESENT: appropriate affect, normal mood Skin exam: PRESENT: other - He had 3 pressure sores, one on each buttock that was covered with a foam gauze, and one that had healed and scabbed over on his sacrum. Erythema was well demarcated. No surrounding erythema or evidence of exudates. Results Laboratory Results: 10/05/18 13:00 10/06/18 06:52 10/05/18 13:00 Creatine Kinase 27 L Qualifiers - * PATIENT BEING DISCHARGED WITH ANY OF THE FOLLOWING DIAGNOSIS: No
== END 2018-10-13 14:45 | disposition home health service (06) | DRG 641 ==
LOC: ER 12:28 → EH 18:07 → 5 20:42
PROVIDERS: ADMIT Hospitalist; ATTEND Hospitalist
DX: E43 Unspecified severe protein-calorie malnutrition (principal); Z68.1 Body mass index [BMI] 19.9 or less, adult; L89.322 Pressure ulcer of left buttock, stage 2; L89.312 Pressure ulcer of right buttock, stage 2; J44.9 Chronic obstructive pulmonary disease, unspecified; Z99.81 Dependence on supplemental oxygen; L30.9 Dermatitis, unspecified; Z87.891 Personal history of nicotine dependence; F10.21 Alcohol dependence, in remission; R09.02 Hypoxemia; R53.81 Other malaise
CPT/HCPCS: 36415; 80053; 81001; 82550; 83690; 83735; 84100; 84443; 85025; 94640; 96360; 96361; 99285; A9270-GY; J1650; J1885; J3411; J3475; J3480; J3490; J7030; J7050; J7620

== ENCOUNTER 2019-06-10 14:01 | Emergency (ER) | payer MEDICARE, MEDICAID ==
[2019-06-10] MEDS ORDERED: NORMAL SALINE 1000 ML 1,000 ML IV ONE (14:32)
--- NOTE | 2019-06-10 14:37 | ER Document Report ---
ED General - General Stated Complaint: ETOH Time Seen by Provider: 06/10/19 14:23 Primary Care Provider: MUNIRA LEBRON PA-C [Primary Care Provider] - Follow up as needed TRAVEL OUTSIDE OF THE [place] IN LAST 30 DAYS: No - HPI Notes: Patient is a 73-year-old male that presents to the emergency department for chief complaint of wanting alcohol detox. Patient reports drinking a gallon and a half of Phillip Finnegan over the last week. When I asked why he was doing this he told me because he likes it and he is trying to get high. Patient now states that he does not wish to continue drinking alcohol and would like "something to take home to get me off this shit". Patient denies any history of alcohol withdrawal seizures or hallucinations. He currently states that he is intoxicated and is not having an y alcohol withdrawal. Patient states right now he feels drunk but has no other complaints. He denies any chest pain, palpitations, nausea or abdominal pain. Past Medical History: Reviewed in chart Past Surgical History: Reviewed in chart Social History: Heavy daily alcohol consumption. Family History: Reviewed and noncontributory for presenting illness Allergies: Reviewed, see documented allergy list. REVIEW OF SYSTEMS: CONSTITUTIONAL : No fever No chills No diaphoresis No recent illness EENT: No vision changes No congestion No sore throat CARDIOVASCULAR: No chest pain No palpitations RESPIRATORY: No shortness of breath No cough No difficulty breathing GASTROINTESTINAL: No abdominal pain No nausea No vomiting No diarrhea GENITOURINARY: No dysuria No hematuria No difficulty urinating MUSCULOSKELETAL: No back pain No leg pain No arm pain SKIN: No rashes No lesions LYMPHATIC: No swollen, enlarged glands. NEUROLOGICAL: No lightheadedness No headache No weakness No paresthesias PSYCHIATRIC: No anxiety No depression PHYSICAL EXAMINATION: Vital signs reviewed, nursing noted reviewed. GENERAL: Well-appearing, well-nourished and in no acute distress. HEAD: Atraumatic, normocephalic. EYES: Eyes appear normal, extraocular movements intact, sclera anicteric, conjunctiva are normal. ENT: nares patent, oropharynx clear without exudates. Moist mucous membranes. NECK: Normal range of motion, supple without lymphadenopathy LUNGS: Breath sounds clear to auscultation bilaterally and equal. No wheezes rales or rhonchi. HEART: Regular rate and rhythm without murmurs ABDOMEN: Soft, nontender, normoactive bowel sounds. No rebound, guarding, or rigidity. No masses appreciated. EXTREMITIES: Nontender, good range of motion, no pitting or edema. NEUROLOGICAL: No focal neurological deficits. Moves all extremities sponta neously Motor and sensory grossly intact on exam. PSYCH: Normal mood, normal affect. SKIN: Warm, Dry, normal turgor, no rashes or lesions noted on exposed skin - Related Data Allergies/Adverse Reactions: No Known Allergies Allergy (Verified 10/05/18 12:29) Past Medical History - Social History Smoking Status: Unknown if Ever Smoked Family History: Reviewed & Not Pertinent, CVA Pulmonary Medical History: Reports: Hx COPD Renal/ Medical History: Denies: Hx Peritoneal Dialysis GI Medical History: Reports: Hx Hepatitis - Alcoholic Psychiatric Medical History: Reports: Hx Depression Infectious Medical History: Reports: Hx Hepatitis - Alcoholic - Immunizations Hx Pneumococcal Vaccination: 07/03/18 Physical Exam - Vital signs Vitals: Temp Pulse BP 98.0 F 100 120/76 06/10/19 14:40 06/10/19 14:40 06/10/19 14:40 Course - Re-evaluation Re-evalutation: 06/10/19 14:36 Vitals reviewed. Nursing notes reviewed. Patient is alert and conversational. He is speaking in full sentences and able to ambulate without difficulty. Patient does clinically appear slightly intoxicated but is otherwise hemodynamically stable and alert. Patient would like to be placed at [facility] for alcohol detox. Blood work has been drawn for medical clearance. 06/10/19 15:31 Patient has remained alert and oriented. He has tolerated eating. He is ambulating around his room without difficulty and speaking in full sentences. Patient does not wish to stay in the emergency room any longer. He no longer would like to be placed in inpatient alcohol detox. Patient will be given phone numbers for outpatient resources. Patient is demanding to be discharged from the emergency room now. He does not want to wait for the remainder of his blood work to come back. Patient has removed his own IV. He is medically stable for discharge. Patient did arrive by EMS and plan is to assist him in getting a taxi ride home since there is no family available to come pick him up. Laboratory 06/10/19 14:35 Sodium 143.0 Potassium 3.4 L Chloride 100 Carbon Dioxide 32 H Anion Gap 11 BUN 13 Creatinine 0.58 Est GFR ( Amer) > 60 Est GFR (MDRD) Non-Af > 60 Glucose 99 Calcium 8.2 L Serum Alcohol 299 - Vital Signs Vital signs: Temp Pulse Resp BP Pulse Ox 98.0 F 100 120/76 06/10/19 14:40 06/10/19 14:40 06/10/19 14:40 - Laboratory Result Diagrams: 06/10/19 14:35 06/10/19 14:35 Laboratory results interpreted by me: 06/10/19 14:35 Potassium 3.4 L Carbon Dioxide 32 H Calcium 8.2 L Discharge - Discharge Clinical Impression: Alcohol intoxication Qualifiers: Complication of substance-induced condition: uncomplicated Qualified Code(s): F10.920 - Alcohol use, unspecified with intoxication, uncomplicated Condition: Stable Disposition: HOME, SELF-CARE Instructions: Chronic Alcoholism ([facility]) Additional Instructions: Please return to the emergency department if you have any worsening, or concern of your symptoms. Please return to the emergency department if you develop chest pain, difficulty breathing, severe abdominal pain, or ongoing vomiting. If you have any questions or concerns do not hesitate to return the emergency department for evaluation. Go to [facility] for alcohol detox Referrals: MUNIRA LEBRON PA-C [Primary Care Provider] - Follow up as needed [facility] [Provider Group] - Follow up as needed
[2019-06-10 15:07] LABS: ABSOLUTE LYMPHOCYTES (AUTO) 1.7 10^3/uL (0.5-4.7); ABSOLUTE MONOCYTES (AUTO) 0.7 10^3/uL (0.1-1.4); ABSOLUTE NEUT (AUTO) 3.6 10^3/uL (1.7-8.2); BASOPHILS % (AUTO) 0.5 % (0-2); EOSINOPHILS % (AUTO) 0.2 % (0-6); HEMATOCRIT 43.8 % (37.9-51.0); HEMOGLOBIN 14.9 g/dL (13.5-17.0); LYMPHOCYTES % (AUTO) 27.7 % (13-45); MEAN CORPUSCULAR HEMOGLOBIN 34.1 pg (27.0-33.4); MEAN CORPUSCULAR VOLUME 100 fl (80-97); MONOCYTES % (AUTO) 11.1 % (3-13); RED BLOOD COUNT 4.37 10^6/uL (4.35-5.55); RED CELL DISTRIBUTION WIDTH 15.4 % (11.5-14.0); SEGMENTED NEUTROPHILS % (AUTO) 60.5 % (42-78); TOTAL CELLS COUNTED % (AUTO) 100 %
[2019-06-10 15:17] LABS: ALCOHOL 299 mg/dL (NONE DETECTED); ANION GAP 11 (5-19); BLOOD UREA NITROGEN 13 mg/dL (7-20); CALCIUM 8.2 mg/dL (8.4-10.2); CARBON DIOXIDE 32 mmol/L (22-30); CHLORIDE 100 mmol/L (98-107); GLUCOSE 99 mg/dL (75-110); POTASSIUM 3.4 mmol/L (3.6-5.0)
[2019-06-10 15:20] VITALS: BP 120/76
[2019-06-10 15:33] LABS: PLATELET COUNT 95 10^3/uL (150-450)
== END 2019-06-10 15:45 | disposition home or self-care (01) ==
LOC: ER 14:01
DX: F10.920 Alcohol use, unspecified with intoxication, uncomplicated (principal); J44.9 Chronic obstructive pulmonary disease, unspecified
CPT/HCPCS: 99284; 96360; 36415; 80307; 85025; 80048; J7030

== ENCOUNTER 2019-06-12 17:44 | Emergency (ER) | payer MEDICARE, MEDICAID ==
[2019-06-12] MEDS ORDERED: AMOXICILLIN TR/POT CLAVULANATE 500-125 MG TAB PO ONE (17:52)
[2019-06-12] MEDS ORDERED: LIDOCAINE 4%/TETRACAINE 0.5%/EPI 0.18% 5 ML TOPICAL SOLN TOP ONE (17:52)
--- NOTE | 2019-06-12 17:54 | ER Document Report ---
ED General - General Stated Complaint: DOG BITE/LEFT HAND Time Seen by Provider: 06/12/19 17:50 Primary Care Provider: MUNIRA LEBRON PA-C [Primary Care Provider] - Follow up as needed Notes: 73-year male presents with alcohol tox occasion and dog bite to left hand. He is been drinking heavily for the last few days as he does annually at the anniversary of the of his son. He says he is sober but the rest of the year he was playing with his dog, should gee, and a bit the dorsum of his left hand. Tetanus is up-to-date. No falls or head trauma. TRAVEL OUTSIDE OF THE [place] IN LAST 30 DAYS: No - Related Data Allergies/Adverse Reactions: No Known Allergies Allergy (Verified 10/05/18 12:29) Past Medical History - Social History Smoking Status: Unknown if Ever Smoked Frequency of alcohol use: Occasional Family History: Reviewed & Not Pertinent, CVA Pulmonary Medical History: Reports: Hx COPD Renal/ Medical History: Denies: Hx Peritoneal Dialysis GI Medical History: Reports: Hx Hepatitis - Alcoholic Psychiatric Medical History: Reports: Hx Depression Infectious Medical History: Reports: Hx Hepatitis - Alcoholic - Immunizations Hx Pneumococcal Vaccination: 07/03/18 Review of Systems - Review of Systems Notes: REVIEW OF SYSTEMS GEN: Denies fever, chills, weight loss ENT: Denies sore throat, nasal discharge, ear pain EYES: Denies blurry vision, eye pain, discharge CV: Denies chest pain, palpitations, edema RESP: Denies cough, shortness of breath, wheezing GI: Denies abdominal pain, nausea, vomiting, diarrhea MSK: Denies joint pain/swelling, edema, SKIN: Dog bite to left hand LYMPH: Denies swollen glands/lymph nodes NEURO: Denies headache, focal weakness or numbness, dizziness PSYCH: Denies depression, suicidal or homicidal ideation PHYSICAL EXAMINATION General: No acute distress, well-nourished Head: Atraumatic, normocephalic ENT: Mouth normal, oropharynx moist, no exudates or tonsillar enlargement Eyes: Conjunctiva normal, pupils equal, lids normal Neck: No JVD, supple, no guarding CVS: Normal rate, regular rhythm, no murmurs Resp: No resp distress, equal and normal breath sounds bilaterally GI: Nondistended, soft, no tenderness to palpation, no rebound or guarding Ext: No deformities, no edema, normal range of motion in upper and lower ext Back: No CVA or midline TTP Skin: "u"shaped skin flap/avulsion to the dorsum of the left hand at the subdermal tissue. No apparent nerve or tendon involvement. Lymphatic: No lymphadeopathy noted Neuro: Awake, alert. Face symmetric. GCS 15. Physical Exam - Vital signs Vitals: Temp Pulse BP Pulse Ox 97.7 F 87 126/64 H 95 06/12/19 18:33 06/12/19 18:33 06/12/19 18:33 06/12/19 18:33 Course - Re-evaluation Re-evalutation: 06/12/19 18:04 Dog bite left hand into the dermal tissue. No evidence of injury to underlying structures. Tetanus is up-to-date. Will cleanse heavily after topical anesthesia. Will start patient on Augmentin in the ED. Tetanus already up-to-date. He is also intoxicated, however does not have any evidence of severe desiccation withdrawal. Reticent to suture skin flap given its superficial nature and frailty of the skin so we will do accommodation Dermabond Steri-Strips, leaving space in between for fluid to egress given its a dog bite and is contaminated. I have discussed with the patient there likely diagnosis, aftercare plan, follow-up plans and my usual and customary return precautions. They verbalized understanding of this. - Vital Signs Vital signs: Temp Pulse Resp BP Pulse Ox 97.7 F 87 126/64 H 95 06/12/19 18:33 06/12/19 18:33 06/12/19 18:33 06/12/19 18:33 Procedures - Laceration/Wound Repair Left Dorsal Hand Time completed: 19:15 Wound length (cm): 7 Wound's Depth, Shape: Superficial, Flap Anesthetic type: Other - Topical lidocaine epinephrine tetracaine Wound explored: Clean Irrigated w/ Saline (mLs): 500 - High-pressure Wound Repaired With: Steri-strips, Dermabond - Dermabond placed parallel to the wound. Steri-Strips used to close wound. Space left in between Steri-Strips to facilitate drainage Discharge - Discharge Clinical Impression: Dog bite of left hand Qualifiers: Encounter type: initial encounter Qualified Code(s): S61.452A - Open bite of left hand, initial encounter Alcohol intoxication Qualifiers: Complication of substance-induced condition: uncomplicated Qualified Code(s): F10.920 - Alcohol use, unspecified with intoxication, uncomplicated Condition: Good Disposition: HOME, SELF-CARE Instructions: Acute Alcohol Intoxication ([facility]), Animal Bites ([facility]) Prescriptions: Amox Tr/Potassium Clavulanate [Augmentin 875-125 Tablet] 1 tab PO BID 5 Days tablet Referrals: MUNIRA LEBRON PA-C [Primary Care Provider] - Follow up as needed
[2019-06-12] MEDS ORDERED: LORAZEPAM INJ 2 MG/1 ML VIAL IV ONE (22:13)
[2019-06-13] MEDS ORDERED: LORAZEPAM 1 MG TABLET PO SCH
[2019-06-13] MEDS: LORAZEPAM 1 MG TABLET PO SCH ×3 (01:54→09:38)
--- NOTE | 2019-06-13 10:14 | ER Document Report ---
Doctor's Note Notes: 06/13/19 10:13 Rounds: Chart reviewed and patient interviewed. Patient says he injured the top of his left hand by his dog biting his hand. There is a report in his chart that his son called and said that he cut his hand when he fell and hit a broken table. The wound was Steri-Stripped because it was too frail and thin to suture. Patient's alcohol level was 299. Vital signs are all normal. Patient appears to be medically stable for transfer or discharge. Sultana Foster MD 06/13/19 20:09 Not sure if patient is capable of making a rational decision about his medical condition and care. He is insistent on going home. From what I understand the patient lives alone. He has a power of bow maker machine tender named Kevin who is leaving the area tomorrow or the next day for an extended several months today. I do not think the patient has any family members in the area. Patient says he still drives his car. While here, patient had temporary episodes where his O2 sat dropped down to in the upper 80s. I did give him a nebulizer treatment once. His lungs remain relatively clear, however. His chest x-ray showed severe COPD but no localizing findings. I consulted with the hospitalist and asked them to evaluate the patient but they feel his wishes to be discharged should be recognized and accepted and discharge the patient, even though they do not have an answer as to how the patient supposed to get from the [place] to in his house. The suggestion was made that an ambulance take him, but that still does not address the issue of how the patient supposed to get around in his house where he lives by himself. He is not fixes. He is going to be checking on him to make sure he has not fallen and broken something. Etc. I opted for a 24-hour hold on the patient. I will be back in the morning and we can reassess his situation and see if there is a better solution. I have turned the care of the patient over to Dr. Mcelroy for the night.
[2019-06-13] MEDS ORDERED: IPRATROPIUM/ALBUTEROL 0.5-2.5 MG/3 ML AMPUL NEB ONE (11:17)
[2019-06-13 11:42] LABS: ABSOLUTE LYMPHOCYTES (AUTO) 1.2 10^3/uL (0.5-4.7); ABSOLUTE MONOCYTES (AUTO) 0.5 10^3/uL (0.1-1.4); ABSOLUTE NEUT (AUTO) 6.8 10^3/uL (1.7-8.2); BASOPHILS % (AUTO) 0.4 % (0-2); HEMATOCRIT 41.3 % (37.9-51.0); HEMOGLOBIN 14.1 g/dL (13.5-17.0); LYMPHOCYTES % (AUTO) 14.3 % (13-45); MEAN CORPUSCULAR HEMOGLOBIN 34.2 pg (27.0-33.4); MEAN CORPUSCULAR HGB CONC 34.2 g/dL (32.0-36.0); MEAN CORPUSCULAR VOLUME 100 fl (80-97); MONOCYTES % (AUTO) 5.5 % (3-13); RED BLOOD COUNT 4.12 10^6/uL (4.35-5.55); RED CELL DISTRIBUTION WIDTH 15.1 % (11.5-14.0); SEGMENTED NEUTROPHILS % (AUTO) 79.8 % (42-78); TOTAL CELLS COUNTED % (AUTO) 100 %; WHITE BLOOD COUNT 8.5 10^3/uL (4.0-10.5)
[2019-06-13 11:43] LABS: ARTERIAL BLOOD BASE EXCESS 2.5 mmol/L; ARTERIAL BLOOD H2CO3 1.27 mmol/L (1.05-1.35); ARTERIAL BLOOD HCO3 27.2 mmol/L (20-24); ARTERIAL BLOOD O2 SATURATION 94.6 % (94-98); ARTERIAL BLOOD PCO2 42.2 mmHg (35-45); ARTERIAL BLOOD PH 7.43 (7.35-7.45); ARTERIAL BLOOD PO2 70.6 mmHg (80-100); ARTERIAL BLOOD TOTAL CO2 28.5 mmol/L (23-27)
[2019-06-13 11:48] LABS: ARTERIAL BLOOD FIO2 2
[2019-06-13 11:57] LABS: ALBUMIN 3.6 g/dL (3.5-5.0); ALCOHOL < 10 mg/dL (NONE DETECTED); ALKALINE PHOSPHATASE 160 U/L (38-126); ANION GAP 13 (5-19); ASPARTATE AMINO TRANSFERASE 704 U/L (17-59); BILIRUBIN,DIRECT 0.9 mg/dL (0.0-0.4); BILIRUBIN,TOTAL 1.8 mg/dL (0.2-1.3); BLOOD UREA NITROGEN 21 mg/dL (7-20); CALCIUM 8.5 mg/dL (8.4-10.2); CARBON DIOXIDE 28 mmol/L (22-30); CHLORIDE 99 mmol/L (98-107); GLUCOSE 143 mg/dL (75-110); POTASSIUM 3.6 mmol/L (3.6-5.0); TOTAL PROTEIN 6.6 g/dL (6.3-8.2)
[2019-06-13 12:07] LABS: CREATINE KINASE MB 2.96 ng/mL (<4.55); TROPONIN I 0.015 ng/mL
[2019-06-13 12:18] LABS: PLATELET COUNT 67 10^3/uL (150-450)
--- NOTE | 2019-06-13 12:24 | RADIOLOGY REPORT (SQ) ---
EXAM DESCRIPTION: CHEST SINGLE VIEW COMPLETED DATE/TIME: 06/13/2019 12:04 pm REASON FOR STUDY: COPD, S OB, hypoxia COMPARISON: AP view of the chest from 09/22/2018. EXAM PARAMETERS: NUMBER OF VIEWS: One view. TECHNIQUE: Single frontal radiographic view of the chest acquired. RADIATION DOSE: NA LIMITATIONS: None. FINDINGS: Hyperinflated appearance of the lungs consistent with COPD. There is no superimposed cons olidation, pleural effusion or pneumothorax. The cardiomediastinal silhouette and pulmonary vasculature are within normal limits. There is no acute abnormality of the imaged osseous structures. IMPRESSION: Findings of COPD without a superimposed acute cardiopulmonary process. TECHNICAL DOCUMENTATION: JOB ID: [id number] [employer]- All Rights Reserved Reading location - IP/workstation name: [email or web address]
--- NOTE | 2019-06-13 19:07 | PDOC CONSULTATION ---
Consultation Consult Date: 06/13/19 Attending physician:: ADIA SOUSA Provider Consulted: IVAN SAMANIEGO Consult reason:: Possible alcohol withdrawal History of Present Illness Admission Date/PCP: MUNIRA LEBRON PA-C History of Present Illness: TRACIE ETIENNE is a 73 year old male who came to the ER yesterday with what he said was a dog bite on his hand but what turned out to be a fall and he cut his hand on a complicated. There were going to send him home from the ER yesterday they called the patient's power of insurance defense attorney who did not want to come get him, even though it was not clear whether or not it had been determined that the patient had decision-making capacity. He was kept overnight and the ER provider today wanted him admitted to the hospital due to concerns over weakness and possible alcohol withdrawal. I went to see if none and he was a little bit eedr mulous when he reached for a drink but after he got a sip of milk he sent the carton back down and when he was resting he showed no signs of any tremors. He was able to tell me that he does drink about a pint of liquor a day and does not really think he is going to quit yet. He was able to tell me his full name, date of , fully street address, town, state, year, and who the president was. He says that he has been a little shaky for a few years. He says he uses a walker to get around at home, but he does not always use it which is why he fell. He does not want to stay in the hospital and wants to go home. Past Medical History Pulmonary Medical History: Reports: Chronic Obstructive Pulmonary Disease (COPD) GI Medical History: Reports: Hepatitis - Alcoholic Psychiatric Medical History: Reports: Depression Social History Smoking Status: Unknown if Ever Smoked Frequency of Alcohol Use: Heavy Hx Recreational Drug Use: No Drugs: None Hx Prescription Drug Abuse: No Family History Family History: Reviewed & Not Pertinent, CVA Parental Family History Reviewed: Yes Children Family History Reviewed: Yes Sibling(s) Family History Reviewed.: Yes Medication/Allergy Allergies/Adverse Reactions: No Known Allergies Allergy (Verified 10/05/18 12:29) Review of Systems All systems: reviewed and no additional remarkable complaints except as stated - All systems were reviewed and were negative except as noted in the HPI Physical Exam Vital Signs: Temp Pulse Resp BP Pulse Ox 97.8 F 96 15 145/88 H 91 L 06/13/19 11:12 06/13/19 18:06 06/13/19 12:01 06/13/19 18:06 06/13/19 18:06 Intake & Output 06/12/19 06/13/19 06/14/19 06:59 06:59 06:59 Weight 47.7 kg General appearance: PRESENT: no acute distress, cooperative, disheveled, thin Head exam: PRESENT: atraumatic, normocephalic Eye exam: PRESENT: EOMI, PERRLA. ABSENT: conjunctival injection, nystagmus, scleral icterus Ear exam: PRESENT: normal external ear exam Mouth exam: PRESENT: moist, neck supple Teeth exam: PRESENT: poor dentation Throat exam: ABSENT: post pharyngeal erythema Neck exam: PRESENT: full ROM. ABSENT: carotid bruit, JVD, lymphadenopathy, meningismus, tenderness, thyromegaly Respiratory exam: PRESENT: clear to auscultation kody, symmetrical, unlabored. ABSENT: accessory muscle use, chest wall tenderness, crackles, prolonged expiratory phas, rhonchi, tachypnea, wheezes Cardiovascular exam: PRESENT: RRR, +S1, +S2 Pulses: PRESENT: normal carotid pulses Vascular exam: PRESENT: normal capillary refill GI/Abdominal exam: PRESENT: normal bowel sounds, soft. ABSENT: distended, guarding, rebound, tenderness Extremities exam: ABSENT: clubbing, pedal edema Musculoskeletal exam: PRESENT: normal inspection. ABSENT: deformity Neurological exam: PRESENT: alert, awake, oriented to person, oriented to place, oriented to time, oriented to situation, CN II-XII grossly intact Psychiatric exam: PRESENT: flat affect, normal mood Skin exam: PRESENT: abrasion - He has multiple small abrasions on his upper extremities, the one on the left hand is bandaged. He has evidence of some chronic hemosiderin deposition, dry, warm Results Laboratory Results: 06/13/19 11:18 06/13/19 11:18 06/13/19 06/13/19 06/13/19 11:18 11:18 11:18 WBC 8.5 RBC 4.12 L Hgb 14.1 Hct 41.3 MCV 100 H MCH 34.2 H MCHC 34.2 RDW 15.1 H Plt Count 67 L Seg Neutrophils % 79.8 H Carbonic Acid 1.27 HCO3/H2CO3 Ratio 21:1 ABG pH 7.43 ABG pCO2 42.2 ABG pO2 70.6 L ABG HCO3 27.2 H ABG O2 Saturation 94.6 ABG Base Excess 2.5 FiO2 2 Sodium 139.5 Potassium 3.6 Chloride 99 Carbon Dioxide 28 Anion Gap 13 BUN 21 H Creatinine 0.53 Est GFR ( Amer) > 60 Glucose 143 H Calcium 8.5 Total Bilirubin 1.8 H AST 704 H Alkaline Phosphatase 160 H Total Protein 6.6 Albumin 3.6 06/13/19 11:18 CK-MB (CK-2) 2.96 Troponin I 0.015 Impressions: Chest X-Ray 06/13/19 11:16 IMPRESSION: Findings of COPD without a superimposed acute cardiopulmonary process. Assessment and Plan - Diagnosis (1) Alcohol intoxication Qualifiers: Complication of substance-induced condition: uncomplicated Qualified Code(s): F10.920 - Alcohol use, unspecified with intoxication, uncomplicated Is this a current diagnosis for this admission?: Yes Plan: Now resolved. No signs of withdrawal. (2) Debility and deconditioning Is this a current diagnosis for this admission?: Yes Plan: I offered to admit the patient and get a physical therapy consultation and he declined. He said that he would use his walker when he was at home and that he fell because he was not using it. - Time Time Spent with patient: 35 or more minutes - Plan Summary Plan Summary: On my assessment, the patient is alert and oriented to person, place, time, and situation. He displays no signs of alcohol withdrawal or hallucinations. I believe that at this time the patient has decision-making capacity, and this sentiment was echoed by members of the nursing staff who have interacted with him. While I think it would be to his benefit to stay and get a physical therapy evaluation at least, I believe he has ability to make his own reasonable decisions, even if they are what I would consider poor or if I disagree with them.
--- NOTE | 2019-06-13 22:22 | EKG REPORT ---
SEVERITY:- ABNORMAL ECG - SINUS RHYTHM RAA, CONSIDER BIATRIAL ABNORMALITIES CONSIDER LEFT VENTRICULAR HYPERTROPHY : Confirmed by: Hailey Luz MD 13-Jun-2019 22:22:04
[2019-06-14 05:07] LABS: APPEARANCE,URINE CLEAR; BILIRUBIN,URINE NEGATIVE (NEGATIVE); COLOR,URINE YELLOW; GLUCOSE, URINE NEGATIVE (NEGATIVE); KETONES,URINE 80 mg/dL (NEGATIVE); LEUKOCYTE ESTERASE,URINE NEGATIVE (NEGATIVE); NITRITE,URINE NEGATIVE (NEGATIVE); PROTEIN,URINE 30 mg/dL (NEGATIVE); URINE SPECIFIC GRAVITY 1.014; UROBILINOGEN,URINE NEGATIVE mg/dL (<2.0)
--- NOTE | 2019-06-14 10:29 | ER Document Report ---
Doctor's Note Notes: 06/14/19 10:27 Rounds: Reassessed the patient this morning. Patient is expressing desire to be discharged to go home. He looks better, although he suffers from fairly severe emphysema. His power of employment law attorney has reportedly arranged for the patient to have supplies and someone to check on the patient. The power of employment law attorney son lives just down the street, according to the information I received. Patient is able to actually get up and ambulate without assistance today. He ate breakfast. After that, he was ambulated around the department. His O2 sat is 96% after the ambulation. Remaining vital signs were essentially normal with a heart rate of 105. Patient looks to be stable at this time. I feel he is capable of making a judgment about his medical care and feel that he can be discharged at this time.
[2019-06-14 13:35] VITALS: BP 118/76
--- NOTE | 2019-06-14 21:10 | PSYCHOLOGICAL NOTE ---
Psych Note - Psych Note Date seen by psych provider: 06/14/19 Time seen by psych provider: 09:38 - Evaluation from [id number]. Psych Note: Presenting Problem: 24 Hour IVC Petition, history of alcohol abuse, second visit to ED and POA wants detox, concern for start of alcohol withdrawal. Today patient reported he was "doing better and felt stronger than yesterday." He denied wanting detox. He stated "I want to go home." He stated "I don't drink a lot now" and admitted to drinking a pint of Phillip Kain a week. He denied drinking and driving. He denied previous treatment for alcohol. He denied previous hospitalizations. He identified Nadeem Sams is his POA, this person is like a son but not biological. Patient was eating breakfast, noted he couldn't eat all off it and commented how his stomach shrunk. He did eat some thought. Patient was alert and oriented x5 with linear thinking, denied SI/HI, mood was euthymic with congruent affect, he made fair eye contact, was able to engage and carry on dialogue conversation which was within normal/ limits for rate/tone/prosody. Encouraged and recommended voluntary alcohol detox and linkage to [facility] but patient declined. ED SW involved with patient since yesterday. She met with him today and provided resources and linkage to services (related to social needs). Diagnosis: Concern for Alcohol Withdrawal last night (Serum Alcohol Level was <10 upon arrival to ED) Alcohol Use Disorder, Moderate to Severe Impression/Plan: Patient is cleared from acute psychiatric services. Recommendation to rescind 24 Hour IVC Petition. Patient was alert and oriented x5 with linear thinking, denied SI/HI, mood was euthymic with congruent affect, he made fair eye contact, was able to engage and carry on dialogue conversation which was within normal/ limits for rate/tone/prosody. His vitals and physical presentation did not suggest withdrawal. ED SW involved for social support and linkages. Encouraged and recommended voluntary alcohol detox and linkage to [facility] but patient declined. Provided outpatient SA resource sheet which highlighted [facility] fro assistance with voluntary detox placement, listed the detox facilities and documented [facility] for outpatient treatment. Medical was going to utilize [employer] for transportation however was money out of pocket up front, patient did not have any and Nursing Pulley Mortiser Operator approved cab voucher. Consulted with Dr. Curtis regarding the management and care of patient. ED physician in agreement with recommendations.
== END 2019-06-14 13:36 | disposition home or self-care (01) ==
LOC: ER 17:44
DX: S61.452A Open bite of left hand, initial encounter (principal); W54.0XXA Bitten by dog, initial encounter; Y93.89 Activity, other specified; F10.120 Alcohol abuse with intoxication, uncomplicated; Y90.8 Blood alcohol level of 240 mg/100 ml or more; J43.9 Emphysema, unspecified; Z63.4 Disappearance and death of family member
CPT/HCPCS: 93005; 99285; 96374; 36415; 82553; 80307; 82803; 85025; 80053; 81001; 84484; 93010; 94660; 12002; A9270 ×3; J2060; J3490; J7620

== ENCOUNTER 2020-01-30 00:41 | Emergency (ER) | payer MEDICARE, MEDICAID ==
[2020-01-30] MEDS ORDERED: ACETAMINOPHEN 325 MG TABLET PO ONE (01:46)
--- NOTE | 2020-01-30 01:49 | ER Document Report ---
ED Substance Abuse / Acc. OD - General Mode of Arrival: Stretcher Information source: Patient TRAVEL OUTSIDE OF THE [place] IN LAST 30 DAYS: No - HPI Patient complains to provider of: Alcohol abuse - Related Data Home Medications: Albuterol inhaler <WALTER JUAN - Last Filed: 01/30/20 04:47> <GINA TINOCO - Last Filed: 01/30/20 14:32> - General Chief Complaint: ETOH Abuse Stated Complaint: DETOX Time Seen by Provider: 01/30/20 01:20 Primary Care Provider: MUNIRA LEBRON PA-C [Primary Care Provider] - Follow up tomorrow Notes: 74-year-old male past medical history significant for COPD, EtOH abuse presents to the emergency room requesting detox. Patient states he is been drinking 1/5 of whiskey daily for the past 4 months. States his last drink was sometime yesterday unsure of the exact time. Patient states he never started drinking until his in 2018. Denies any suicidal homicidal ideation. Has no local family. Was seen emergency room last June for similar situation and was discharged home with family and follow-up. Patient also complains of an injury to his left forearm. Thinks he may have fallen 4 days ago injuring his left forearm. He is unsure how he injured his forearm. States his tetanus is up-to-date. Patient states he is right-handed. (WALTER JUAN ) - Related Data Allergies/Adverse Reactions: No Known Allergies Allergy (Verified 10/05/18 12:29) Past Medical History - General Information source: Patient - Social History Smoking Status: Current Every Day Smoker Frequency of alcohol use: Heavy Drug Abuse: None Lives with: Alone Family History: Reviewed & Not Pertinent, CVA Patient has suicidal ideation: No Patient has homicidal ideation: No Pulmonary Medical History: Reports: Hx COPD Renal/ Medical History: Denies: Hx Peritoneal Dialysis GI Medical History: Reports: Hx Hepatitis - Alcoholic Psychiatric Medical History: Reports: Hx Depression Infectious Medical History: Reports: Hx Hepatitis - Alcoholic - Immunizations Hx Diphtheria, Pertussis, Tetanus Vaccination: Yes Hx Pneumococcal Vaccination: 07/03/18 <WALTER JUAN - Last Filed: 01/30/20 04:47> Review of Systems - Review of Systems Constitutional: No symptoms reported EENT: No symptoms reported Cardiovascular: No symptoms reported Respiratory: No symptoms reported Gastrointestinal: No symptoms reported Musculoskeletal: Muscle pain Skin: Other - Wound to left dorsal forearm Neurological/Psychological: Other - Alcohol abuse. denies: Depression, Homicidal ideation, Seizure -: Yes All other systems reviewed and negative <WALTER JUAN - Last Filed: 01/30/20 04:47> Physical Exam - General General appearance: Appears well, Alert In distress: None - HEENT Head: Normocephalic, Atraumatic Eyes: Normal Pupils: PERRL - Respiratory Respiratory status: No respiratory distress Chest status: Nontender Breath sounds: Normal Chest palpation: Normal - Cardiovascular Rhythm: Regular Heart sounds: Normal auscultation Murmur: No - Extremities Forearm: Nontender, Other - Moderate sized skin tear noted to left forearm. Nontender to palpation. Full range of motion with flexion, extension, internal and external rotation of left forearm. - Neurological Neuro grossly intact: Yes Cognition: Normal Orientation: AAOx4 - Psychological Associated symptoms: Normal affect, Agitated - Skin Skin Temperature: Warm Skin Moisture: Dry Skin irregularity: Erythema, other - Large skin tear 7 x 3 cm area to the left forearm. No active bleeding. Character of irregularity: Erythematous <WALTER JUAN - Last Filed: 01/30/20 04:47> - Vital signs Vitals: Temp 98.9 F 01/30/20 00:41 Course - Laboratory Result Diagrams: 01/30/20 00:54 01/30/20 00:54 - Diagnostic Test Radiology reviewed: Reports reviewed <WALTER JUAN - Last Filed: 01/30/20 04:47> - Laboratory Result Diagrams: 01/30/20 00:54 01/30/20 00:54 <GINA TINOCO - Last Filed: 01/30/20 14:32> - Re-evaluation Re-evalutation: 01/30/20 04:47 Patient is resting less agitated. All test results were reviewed with patient. Patient has requested to be discharged patient. Was counseled due to his alcohol level and medications we have given him he is unable to leave of his own accord. Patient states he is concerned about his dog. Gave phone numbers of people to the nurses to try to reach to either pick him up or take care of his dog without success. (WALTER JUAN) 01/30/20 11:02 Patient reports feeling jittery and has a tremor noted to the hands. Patient again voiced concern about who will be taking care of his dog. Patient is awaiting mental health consultation at this time. 01/30/20 11:17 Patient states that he does not want to stay here any longer and that he wants to go home and take care of his dogs or his dog does not . Patient states that he does not want to go to a detox facility. Patient is requesting to leave at this time. Patient does not meet IVC criteria and is not homicidal or suicidal. RN advised that patient is requesting to leave so that they can assist with helping him locate transportation home. Provider did speak with Priscila with the mental health team to obtain a list in case patient changes his mind and would like information on detox, detox facility list was provided to the patient. 01/30/20 11:19 Patient reports tetanus immunization is currently up-to-date. 01/30/20 12:51 Patient with continued tremors, heart rate 98 at this time although occasionally goes up to 110. Discussed with patient concerned that he may be in withdrawal from his alcohol use and that we would be happy to treat him for possible alcohol withdrawal symptoms. Patient states that he plans to go home and drink a glass of alcohol. Patient states that he is not interested in detox at this time. Patient continues to deny any suicidal or homicidal ideation. Patient does not meet IVC criteria. The patient has decided not to proceed with further recommended testing or treatment. The risk and alternatives to the recommendation were discussed and the patient voiced understanding. The patient appears clinically to have the capacity to make this decision. The patient was instructed that they could return to the ER at any time to continue treatment. Patient will be transferred via friendly transport team. Staff attempted to contact patient's friends who could either looking on his dog or to even pick him up. One of the provided number's mailbox was full and the other number was no longer in service. Patient did not have any other phone numbers of people to contact to provide care for his dog. Consulted with Dr. Jerome regarding patient plan of care at this time. Dr Jerome agrees with plan to treat with oral benzodiazepine medication while he is here. No prescription advised as pt plans to resume drinking alcohol. Agrees that we cannot hold patient against his will if pt is declining treatment at this time. (GINA TINOCO) - Vital Signs Vital signs: Temp Pulse Resp BP Pulse Ox 98.9 F 20 155/83 H 93 01/30/20 01:04 01/30/20 13:01 01/30/20 14:00 01/30/20 14:01 - Laboratory Laboratory results interpreted by me: 01/30/20 01/30/20 01/30/20 00:54 00:54 03:11 RBC 4.06 L MCV 100 H MCH 34.3 H RDW 17.0 H Plt Count 87 L Carbon Dioxide 32 H Glucose 115 H Calcium 8.3 L AST 415 H ALT 110 H Alkaline Phosphatase 166 H Urine Protein 100 H Urine Blood MODERATE H Urine Urobilinogen 2.0 H Salicylates < 1.0 L Acetaminophen < 10 L - EKG Interpretation by Me Additional EKG results interpreted by me: 01/30/20 02:25 EKG was reviewed and interpreted by ED. MD Dr. Berkowitz. NO Acute STEMI Sinus rhythm Rate 90 (WALTER JUAN) Discharge <WALTER JUAN - Last Filed: 01/30/20 04:47> <GINA TINOCO - Last Filed: 01/30/20 14:32> - Discharge Clinical Impression: Alcoholism Skin tear of left forearm without complication Qualifiers: Encounter type: initial encounter Qualified Code(s): S51.812A - Laceration without foreign body of left forearm, initial encounter Condition: Stable Disposition: HOME, SELF-CARE Instructions: Chronic Alcoholism ([facility]), Skin Tear ([facility]) Additional Instructions: Return immediately for any new or worsening symptoms Followup with your primary care provider, call tomorrow to make a followup appointment Follow-up with a detox facility from the list provided if you do decide you want help with your alcoholism Referrals: MUNIRA LEBRON PA-C [Primary Care Provider] - Follow up tomorrow
[2020-01-30 02:03] LABS: ABSOLUTE LYMPHOCYTES (AUTO) 2.1 10^3/uL (0.5-4.7); ABSOLUTE MONOCYTES (AUTO) 0.6 10^3/uL (0.1-1.4); ABSOLUTE NEUT (AUTO) 3.3 10^3/uL (1.7-8.2); BASOPHILS % (AUTO) 0.4 % (0-2); EOSINOPHILS % (AUTO) 0.3 % (0-6); HEMATOCRIT 40.6 % (37.9-51.0); HEMOGLOBIN 13.9 g/dL (13.5-17.0); LYMPHOCYTES % (AUTO) 35.4 % (13-45); MEAN CORPUSCULAR HEMOGLOBIN 34.3 pg (27.0-33.4); MEAN CORPUSCULAR HGB CONC 34.3 g/dL (32.0-36.0); MEAN CORPUSCULAR VOLUME 100 fl (80-97); MONOCYTES % (AUTO) 10.3 % (3-13); RED BLOOD COUNT 4.06 10^6/uL (4.35-5.55); SEGMENTED NEUTROPHILS % (AUTO) 53.6 % (42-78); TOTAL CELLS COUNTED % (AUTO) 100 %; WHITE BLOOD COUNT 6.1 10^3/uL (4.0-10.5)
[2020-01-30 02:10] LABS: ALBUMIN 3.5 g/dL (3.5-5.0); ALCOHOL 293 mg/dL (NONE DETECTED); ALKALINE PHOSPHATASE 166 U/L (38-126); ANION GAP 8 (5-19); ASPARTATE AMINO TRANSFERASE 415 U/L (17-59); BILIRUBIN,DIRECT 0.2 mg/dL (0.0-0.4); BILIRUBIN,TOTAL 0.7 mg/dL (0.2-1.3); BLOOD UREA NITROGEN 15 mg/dL (7-20); CALCIUM 8.3 mg/dL (8.4-10.2); CARBON DIOXIDE 32 mmol/L (22-30); CHLORIDE 103 mmol/L (98-107); GLUCOSE 115 mg/dL (75-110); POTASSIUM 4.2 mmol/L (3.6-5.0); TOTAL PROTEIN 6.9 g/dL (6.3-8.2)
[2020-01-30 02:11] LABS: ACETAMINOPHEN < 10 ug/mL (10-30); SALICYLATE < 1.0 mg/dL (2.0-20.0)
[2020-01-30 02:17] LABS: PLATELET COUNT 87 10^3/uL (150-450)
[2020-01-30] MEDS ORDERED: CEPHALEXIN 500 MG CAPSULE PO ONE (02:29)
[2020-01-30] MEDS ORDERED: BACITRACIN ZINC OINTMENT 15 GM TP ONE (02:32)
--- NOTE | 2020-01-30 02:43 | RADIOLOGY REPORT (SQ) ---
CLINICAL HISTORY: dyspnea COMPARISON: 06/13/2019. TECHNIQUE: XR CHEST 2 VIEWS 01/30/2020 1:44 AM CDT FINDINGS: Cardiac silhouette is normal in size. Lungs are clear without consolidation, atelectasis, mass or edema. There is no pleural effusion. There is no pneumothorax. There are no acute osseous findings. IMPRESSION: Clear lungs.
--- NOTE | 2020-01-30 03:03 | RADIOLOGY REPORT (SQ) ---
CLINICAL HISTORY: injury COMPARISON: None. TECHNIQUE: XR FOREARM 2 VIEWS 01/30/2020 1:46 AM CDT FINDINGS: There is no fracture. There are mild degenerative changes throughout the wrist. Soft tissues are unremarkable. Bones are osteopenic. IMPRESSION: No acute osseous findings.
[2020-01-30 03:33] LABS: APPEARANCE,URINE CLEAR; BILIRUBIN,URINE NEGATIVE (NEGATIVE); COLOR,URINE YELLOW; GLUCOSE, URINE NEGATIVE (NEGATIVE); KETONES,URINE NEGATIVE (NEGATIVE); LEUKOCYTE ESTERASE,URINE NEGATIVE (NEGATIVE); NITRITE,URINE NEGATIVE (NEGATIVE); PROTEIN,URINE 100 mg/dL (NEGATIVE); URINE SPECIFIC GRAVITY 1.019
[2020-01-30 03:47] LABS: URINE AMPHETAMINES SCREEN NEGATIVE; URINE BARBITURATES SCREEN NEGATIVE; URINE BENZODIAZEPINES SCREEN NEGATIVE; URINE COCAINE SCREEN NEGATIVE; URINE MARIJUANA (THC) SCREEN NEGATIVE; URINE METHADONE SCREEN NEGATIVE; URINE PHENCYCLIDINE SCREEN NEGATIVE
[2020-01-30] MEDS ORDERED: LORAZEPAM 0.5 MG TABLET PO ONE ×2 (03:53→06:49)
--- NOTE | 2020-01-30 08:19 | EKG REPORT ---
SEVERITY:- NORMAL ECG - SINUS RHYTHM : Confirmed by: Hailey Luz MD 30-Jan-2020 08:18:43
[2020-01-30] MEDS ORDERED: LORAZEPAM 1 MG TABLET PO ONE ×2 (11:01→12:46)
[2020-01-30 14:07] VITALS: BP 155/83
[2020-01-30] MEDS ORDERED: NORMAL SALINE 1000 ML 1,000 ML with POTASSIUM CHLORIDE 20 MEQ, MAGNESIUM SULFATE 8 MEQ,... IV SCH ×5 (18:00)
--- NOTE | 2020-01-30 18:52 | PSYCHOLOGICAL NOTE ---
Psych Note - Psych Note Date seen by psych provider: 01/30/20 Time seen by psych provider: 12:00 Psych Note: Patient is a 74-year-old male who presents to ED via EMS with concerns of binge drinking. Patient has a history of chronic ETOH abuse. Patient was resting in bed when clinician entered the room. Patient expressed a desire for discharge. Patient denied a need for mental health or substance abuse/detox services. Patient verbalized concern for his dog that was being cared for. Clinician informed patient of [facility] and their ability to assist with detox and substance abuse treatment once he is medically cleared. Patient declined. Patient reported he had friends who would offer support, if needed. Patient was agreeable to receiving a substance abuse resource list in the event he decides to engage in the services. Patient was alert and oriented to person, place, circumstance, and situation. Mood was cooperative and affect was mood congruent and with full expression. Patient denied suicidal / homicidal ideation, intent or plan or a history of the same. Patient denied current auditory /visual hallucinations and there was no evidence of delusional thought content. Thought processes were linear, rational, and organized. Conversational speech was within normal limits for rate, tone, and prosody. Eye contact was well maintained. Intellectual abilities were estimated within the average range. Attention and concentration was good, and insight, judgment, and impulse control was fair. Diagnosis: 1. ETOH Abuse; Severe Therapeutic Intervention: Psycho-education on use/abuse of ETOH; Focus on adaptive coping and positive ways to manage grief; Focus on health, wellness and good nutrition. Impression / Plan: Patient was discharged from [facility] before clinician had the opportunity to staff with medical provider. Patient presents to ED via EMS with concerns for binge drinking. The following interventions were provided by behavioral health team. 1. Provided psychoeducation on ETOH abuse 2. Patient declined [facility] 3. Patient was explained and provided with a substance abuse resource list
== END 2020-01-30 14:08 | disposition home or self-care (01) ==
LOC: ER 00:41
DX: S51.812A Laceration without foreign body of left forearm, initial encounter (principal); W19.XXXA Unspecified fall, initial encounter; F10.20 Alcohol dependence, uncomplicated; J44.9 Chronic obstructive pulmonary disease, unspecified; F17.200 Nicotine dependence, unspecified, uncomplicated
CPT/HCPCS: 93005; 99285; 36415; 80307 ×4; 83735; 85025; 80053; 81001; 84484; 71046; 73090; 93010; A9270 ×4; J3490

== ENCOUNTER 2020-02-01 23:05 | Emergency (ER) | payer MEDICARE, MEDICAID ==
[2020-02-02] MEDS ORDERED: NORMAL SALINE 1000 ML 1,000 ML IV ONE (00:06)
--- NOTE | 2020-02-02 00:18 | ER Document Report ---
Entered by TREVOR TY SCRIBE 02/02/20 0009 Acting as scribe for:MODE NAJERA IV, MD ED Substance Abuse / Acc. OD - General Mode of Arrival: Medic Information source: Patient TRAVEL OUTSIDE OF THE [place] IN LAST 30 DAYS: No <MODE NAJERA IV - Last Filed: 02/02/20 03:15> <GHADA MARTINEZ - Last Filed: 02/02/20 13:50> <DOMINICK QURESHI - Last Filed: 02/02/20 14:02> - General Chief Complaint: ETOH Abuse Stated Complaint: QUITTING DRINKING/ALCOHOL USE Time Seen by Provider: 02/01/20 23:50 Primary Care Provider: [facility] [Outside] - Follow up as needed MUNIRA LEBRON PA-C [Primary Care Provider] - Follow up as needed Notes: This 74 year old male patient brought in by EMS presents to the ED today with complaints of ETOH abuse. Patient states that he is seeking help with detox because he has been drinking 1/5 of whiskey for the past x4 months, last drink was this afternoon. Patient was seen here x2 days ago for a similar situation and was discharged with instructions to follow up with his PCP and a detox facility (list of facilities provided at D/C). He reports dehydration, stating that he hasn't been drinking enough water or eating food. Denies pain or s uicidal/homicidal ideation. (MODE NAJERA IV) - Related Data Allergies/Adverse Reactions: No Known Allergies Allergy (Verified 10/05/18 12:29) Past Medical History - Social History Smoking Status: Current Every Day Smoker Cigarette use (# per day): Yes Chew tobacco use (# tins/day): No Smoking Education Provided: No Frequency of alcohol use: Heavy Drug Abuse: None Lives with: Alone Family History: Reviewed & Not Pertinent, CVA Patient has suicidal ideation: No Patient has homicidal ideation: No Pulmonary Medical History: Reports: Hx COPD GI Medical History: Reports: Hx Hepatitis - Alcoholic Psychiatric Medical History: Reports: Hx Depression Infectious Medical History: Reports: Hx Hepatitis - Alcoholic - Immunizations Hx Diphtheria, Pertussis, Tetanus Vaccination: Yes Hx Pneumococcal Vaccination: 07/03/18 <MODE NAJERA IV - Last Filed: 02/02/20 03:15> Review of Systems - Review of Systems Constitutional: See HPI, Other - ETOH abuse EENT: No symptoms reported Cardiovascular: No symptoms reported Respiratory: No symptoms reported Gastrointestinal: See HPI, Poor fluid intake, Other - Poor food intake Genitourinary: No symptoms reported Male Genitourinary: No symptoms reported Musculoskeletal: See HPI. denies: Muscle pain Skin: No symptoms reported Hematologic/Lymphatic: No symptoms reported Neurological/Psychological: See HPI. denies: Homicidal ideation, Suicidal ideation -: Yes All other systems reviewed and negative <DANIAMODE KINGSTON - Last Filed: 02/02/20 03:15> Physical Exam - Vital signs Interpretation: Normal - General General appearance: Alert In distress: None - HEENT Head: Normocephalic, Atraumatic Eyes: Normal Pupils: PERRL - Respiratory Respiratory status: No respiratory distress Chest status: Nontender Breath sounds: Normal Chest palpation: Normal - Cardiovascular Rhythm: Regular Heart sounds: Normal auscultation Murmur: No Friction rub: No Gallop: None auscultated - Abdominal Inspection: Normal Distension: No distension Bowel sounds: Normal Tenderness: Nontender - Abdomen soft Organomegaly: No organomegaly - Back Back: Normal, Nontender - Extremities General upper extremity: Normal inspection General lower extremity: Normal inspection - Neurological Neuro grossly intact: Yes - Psychological Associated symptoms: Normal affect, Normal mood - Skin Skin Temperature: Warm Skin Moisture: Dry Skin Color: Normal <DANIAMODE KINGSTON - Last Filed: 02/02/20 03:15> - Vital signs Vitals: Temp 97.9 F 02/01/20 23:11 Course - Laboratory Result Diagrams: 02/01/20 00:30 02/01/20 00:30 <OMDE NAJERA IV - Last Filed: 02/02/20 03:15> - Laboratory Result Diagrams: 02/01/20 00:30 02/01/20 00:30 <GHADA MARTINEZ - Last Filed: 02/02/20 13:50> - Laboratory Result Diagrams: 02/01/20 00:30 02/01/20 00:30 <DOMINICK QURESHI - Last Filed: 02/02/20 14:02> - Re-evaluation Re-evalutation: 02/02/20 14:01 Patient is refusing outpatient detox. He states if he cannot be detoxed in this facility, then he wants to go home. He is being discharged home. He is not being sent home with benzodiazepines for withdrawal symptoms, due to the fact that he has been here 2 nights in the past few days with alcohol levels near 300, and there is no reason to think that he will not continue to drink to excess. (DOIMNICK QURESHI) - Vital Signs Vital signs: Temp Pulse Resp BP Pulse Ox 98.7 F 92 21 H 177/89 H 97 02/02/20 11:36 02/01/20 23:17 02/02/20 13:01 02/02/20 13:01 02/02/20 13:01 - Laboratory Laboratory results interpreted by me: 02/01/20 02/01/20 02/02/20 00:30 00:30 00:30 RBC 4.09 L MCV 99 H MCH 34.2 H RDW 17.0 H Plt Count 91 L Potassium 3.4 L Carbon Dioxide 32 H Calcium 8.1 L AST 577 H ALT 145 H Alkaline Phosphatase 183 H Urine Protein 30 H Urine Blood SMALL H Urine Urobilinogen 2.0 H Salicylates < 1.0 L Acetaminophen < 10 L - EKG Interpretation by Me Additional EKG results interpreted by me: 02/02/20 02:19 EKG obtained on 02/01/2020 at 2353 hrs. was interpreted by this MD. Findings: Normal sinus rhythm, rate 84, P waves proceed QRS complexes, QRS complexes appear narrow, there are no obvious patterns of ST segment elevation or depres rbee seen to suggest acute myocardial ischemia or infarction. Impression normal sinus rhythm with nonspecific ST segments. (MODE NAJERA IV) Discharge <MODE NAJERA IV - Last Filed: 02/02/20 03:15> <GHADA MARTINEZ - Last Filed: 02/02/20 13:50> <DOMINICK QURESHI - Last Filed: 02/02/20 14:02> - Discharge Clinical Impression: Alcohol use disorder Alcohol intoxication Qualifiers: Complication of substance-induced condition: uncomplicated Qualified Code(s): F10.920 - Alcohol use, unspecified with intoxication, uncomplicated Condition: Good Disposition: HOME, SELF-CARE Additional Instructions: You have been evaluated by both medical and behavioral health teams for detox assistance and have been deemed appropriate for discharge. While in the emergency department you received the following services: Medical screening and assessment, nursing services, dietary services, pharmacological services, one-on-one counseling and/or psychotherapy, environmental services, and continuous observation by a patient drug safety data management specialist. You have declined assistance in obtaining a voluntary detox bed at [facility]. Unfortunately, at this time [facility] is unable to assist with your detox; we are a medical facility and currently you are not experiencing any medical complications. You have been provided local resource list of substance abuse/detox facility if you change your mind about a voluntary detox bed. You have also been provided the number to [facility]. ACUTE ALCOHOL INTOXICATION and ALCOHOL ABUSE: Your evaluation revealed very high levels of alcohol. You can from drinking a large amount of alcohol rapidly! Further, there's the risk of falls, traffic accidents, and fights. A high portion (about 50 percent) of the serious injuries seen in hospital emergency rooms are caused by alcohol. Alcohol overdosage is usually due to an underlying emotional or psychiatric problem. You may benefit from counselling. If "binge" drinking is an ongoing problem for you, or if you drink ANY AMOUNT of alcohol EVERY day, you most likely have a tendency to alcoholism. You should avoid alcohol totally. We can refer you for treatment. Persons with alcohol problems are often also prone to other addictions -- you should discuss any use of medications or drugs with the doctor. You should be watched at home for the next several hours by someone who has not been drinking. Get extra fluids for the next 24 hours. Call the doctor if there is repeated vomiting, increasing headache, decreasing level of alertness, or any other worsening. CHRONIC ALCOHOLISM and ALCOHOL ABUSE: Your evaluation reveals evidence of chronic alcoholism, an addiction to alcohol. The tendency to alcoholism may be inherited. Chronic use of alcohol weakens muscles, causes fatty deposits in the liver, damages the stomach, makes you more prone to infections, and can cause defects in unborn children. In the long run, brain atrophy and cirrhosis of the liver result. You are also at greater risk for certain types of cancer, such as cancer of the mouth, throat, stomach, and liver. Counselling services are available to help you. In-hospital treatment programs often help. Support groups such as Alcoholics Anonymous can be very useful in beating this addiction. Your physician can make a referral for you. As alcoholics often are prone to other addictions, you should discuss your use of any other medications with the doctor. ALCOHOL WITHDRAWAL: Your symptoms are caused by alcohol withdrawal. After a period of frequent drinking, the brain and body are changed by the alcohol. When you quit or reduce your drinking, the nervous system becomes unstable. Withdrawal symptoms can start a few hours after your last drink, but sometimes don't begin until a couple of days later. Symptoms can include shakiness, sweating, insomnia, nausea, vomiting, fearfulness, hallucinations, and seizures. In addition to the acute effects of alcohol withdrawal, we often have to deal with the medical effects of alcoholism. These problems often include dehydration, stomach irritation, intestinal bleeding, low blood sugar, liver disease, and pancreas inflammation. Treatment for alcohol withdrawal includes mild sedatives, vitamins, and fluids. You need to be with someone who can help if symptoms become severe. Many patients can withdraw at home. Admission to the hospital or a detox facility may be necessary if withdrawal symptoms are severe and uncontrollable. Abstaining from alcohol is the only effective long-term treatment. If you start drinking again, you will not be able to control yourself after the first drink. Treatment programs are available. In addition, many alcoholics benefit from Alcoholics Anonymous or other support groups available through your counselor or [facility] [employer]. [employer]-ANON and A[employer]-TE[employer] are support groups for friends and family members of an alcoholic. Go to the emergency room if you develop persistent vomiting, severe abdominal pain, fever, shortness of breath, hallucinations, uncontrollable tremors, or seizures. FOLLOW-UP CARE: If you have been referred to a physician for follow-up care, call the physicians office for an appointment as you were instructed or within the next two days. If you experience worsening or a significant change in your symptoms, notify the physician immediately or return to the Emergency Department at any time for re-evaluation. Referrals: MUNIRA LEBRON PA-C [Primary Care Provider] - Follow up as needed [facility] [Outside] - Follow up as needed I personally performed the services described in the documentation, reviewed and edited the documentation which was dictated to the scribe in my presence, and it accurately records my words and actions.
[2020-02-02] MEDS ORDERED: LORAZEPAM INJ 2 MG/1 ML VIAL IV ONE ×3 (00:35→11:26)
[2020-02-02 00:58] LABS: ABSOLUTE LYMPHOCYTES (AUTO) 1.3 10^3/uL (0.5-4.7); ABSOLUTE MONOCYTES (AUTO) 0.6 10^3/uL (0.1-1.4); ABSOLUTE NEUT (AUTO) 4.2 10^3/uL (1.7-8.2); BASOPHILS % (AUTO) 0.4 % (0-2); EOSINOPHILS % (AUTO) 0.1 % (0-6); HEMATOCRIT 40.5 % (37.9-51.0); LYMPHOCYTES % (AUTO) 21.8 % (13-45); MEAN CORPUSCULAR HEMOGLOBIN 34.2 pg (27.0-33.4); MEAN CORPUSCULAR HGB CONC 34.5 g/dL (32.0-36.0); MEAN CORPUSCULAR VOLUME 99 fl (80-97); MONOCYTES % (AUTO) 9.4 % (3-13); RED BLOOD COUNT 4.09 10^6/uL (4.35-5.55); SEGMENTED NEUTROPHILS % (AUTO) 68.3 % (42-78); TOTAL CELLS COUNTED % (AUTO) 100 %; WHITE BLOOD COUNT 6.2 10^3/uL (4.0-10.5)
[2020-02-02 01:08] LABS: APPEARANCE,URINE CLEAR; BILIRUBIN,URINE NEGATIVE (NEGATIVE); COLOR,URINE YELLOW; GLUCOSE, URINE NEGATIVE (NEGATIVE); KETONES,URINE NEGATIVE (NEGATIVE); LEUKOCYTE ESTERASE,URINE NEGATIVE (NEGATIVE); NITRITE,URINE NEGATIVE (NEGATIVE); PROTEIN,URINE 30 mg/dL (NEGATIVE)
[2020-02-02 01:16] LABS: ALBUMIN 3.5 g/dL (3.5-5.0); ALCOHOL 299 mg/dL (NONE DETECTED); ALKALINE PHOSPHATASE 183 U/L (38-126); ANION GAP 9 (5-19); ASPARTATE AMINO TRANSFERASE 577 U/L (17-59); BILIRUBIN,DIRECT 0.3 mg/dL (0.0-0.4); BILIRUBIN,TOTAL 0.9 mg/dL (0.2-1.3); BLOOD UREA NITROGEN 16 mg/dL (7-20); CALCIUM 8.1 mg/dL (8.4-10.2); CARBON DIOXIDE 32 mmol/L (22-30); CHLORIDE 102 mmol/L (98-107); GLUCOSE 104 mg/dL (75-110); POTASSIUM 3.4 mmol/L (3.6-5.0)
[2020-02-02 01:17] LABS: ACETAMINOPHEN < 10 ug/mL (10-30); SALICYLATE < 1.0 mg/dL (2.0-20.0)
[2020-02-02 01:24] LABS: PLATELET COUNT 91 10^3/uL (150-450)
[2020-02-02 01:37] LABS: URINE AMPHETAMINES SCREEN NEGATIVE; URINE BARBITURATES SCREEN NEGATIVE; URINE BENZODIAZEPINES SCREEN NEGATIVE; URINE COCAINE SCREEN NEGATIVE; URINE MARIJUANA (THC) SCREEN NEGATIVE; URINE METHADONE SCREEN NEGATIVE; URINE PHENCYCLIDINE SCREEN NEGATIVE
[2020-02-02] MEDS ORDERED: ALBUTEROL SULFATE 0.083% NEB 2.5 MG/3 ML AMPUL NEB ONE (02:52)
--- NOTE | 2020-02-02 09:26 | EKG REPORT ---
SEVERITY:- OTHERWISE NORMAL ECG - SINUS RHYTHM BORDERLINE RIGHT AXIS DEVIATION : Confirmed by: Hailey Luz MD 02-Feb-2020 09:25:06
--- NOTE | 2020-02-02 15:13 | PSYCHOLOGICAL NOTE ---
Psych Note - Psych Note Date seen by psych provider: 02/02/20 Time seen by psych provider: 12:55 Psych Note: Reason for Consult: Detox Patient discloses he would like assistance in detox "that is why came in." He states that he is unwilling to go to a different facility disclosing "if I cannot do detox right here I will just go home." Patient states that it normally takes him 5 to 6 days to detox. He again reports he is unwilling to go to a facility that can assist him with voluntary detox. Patient reports he takes seizure medication, and as long as he does not miss a dose he has not had any problems with seizures. He continued to report that his seizures present as if he is nervous and lifts up his hands and shakes his hands stating "like this." He denies any medical concerns or resent events of seizures. Patient is alert and orientated to person, place, time and circumstance. Patient's mood is overall euthymic with congruent affect as evidenced by smiling engaging with clinician. Patient denies suicidal and homicidal ideation. Delusions are absent and behaviors congruent with an intact reality based presentation I organized and linear thought process. Eye contact was well- maintained. Conversational speech is within normal rate, tone and prosody. Intellectual abilities appear to be within the average range. Attention and concentration are currently good. Insight, judgment, impulse control are historically poor due to patient's chronic severe alcohol abuse. Clinician notes patient is very thin. Patient is currently groomed with no body odor noted. Impression\\plan: Patient is cleared from acute psychiatric services. Patient reports he would like to be sober however refuses to follow through with detox assistance in facilities appropriate for detox. Patient has not followed up with outpatient substance abuse providers including [facility] and [facility]. Clinician notes there appears to be some social aspect to patient coming in asking for assistance; i.e. loneliness. At this time, due to the patient refusing assistance for detox and other facilities, patient is provided resource list of detox facilities and mobile crisis contact information if he changes his mind. Dr. Curtis was consulted and the care management of this patient; attending physicians in agreement with recommendations and disposition.
[2020-02-02 15:19] VITALS: BP 177/91
== END 2020-02-02 15:08 | disposition home or self-care (01) ==
LOC: ER 23:05
DX: F10.920 Alcohol use, unspecified with intoxication, uncomplicated (principal); E86.0 Dehydration; F17.210 Nicotine dependence, cigarettes, uncomplicated
CPT/HCPCS: 93005; 96376; 99285; 96361; 96374; 36415; 80307 ×4; 85025; 80053; 81001; 93010; J2060; J7030

== ENCOUNTER 2020-04-15 10:20 | Inpatient (IN) | payer MEDICARE, MEDICAID ==
--- NOTE | 2020-04-15 10:34 | ER Document Report ---
ED Medical Screen (RME) - General Chief Complaint: Tremor Stated Complaint: TREMORS Time Seen by Provider: 04/15/20 10:32 Primary Care Provider: MUNIRA LEBRON PA-C [Primary Care Provider] - Follow up as needed Mode of Arrival: Wheelchair Information source: Patient Notes: 74-year-old male who has been short of breath cough and congestion for a week. He is extremely short of breath at this time respirations of 42 apical pulse was 142 and blood pressure was 82/41 manual. Very short of breath lungs are very coarse and he will be sent to the [facility] side. The patient was evaluated during the global Covid 19 pandemic, and that diagnosis was suspected/considered upon their initial presentation. Their evaluation, treatment and testing was consistent with current guidelines for patients who present with complaints or symptoms that may be related to Covid 19. I have greeted and performed a rapid initial assessment of this patient. A comprehensive ED assessment and evaluation of the patient, analysis of test results and completion of medical decision making process will be conducted by an additional ED providers. TRAVEL OUTSIDE OF THE [place] IN LAST 30 DAYS: No - Related Data Allergies/Adverse Reactions: No Known Allergies Allergy (Verified 10/05/18 12:29) Past Medical History Pulmonary Medical History: Reports: Hx COPD Renal/ Medical History: Denies: Hx Peritoneal Dialysis GI Medical History: Reports: Hx Hepatitis - Alcoholic Psychiatric Medical History: Reports: Hx Depression Infectious Medical History: Reports: Hx Hepatitis - Alcoholic - Immunizations Hx Diphtheria, Pertussis, Tetanus Vaccination: Yes Doctor's Discharge - Discharge Referrals: MUNIRA LEBRON PA-C [Primary Care Provider] - Follow up as needed
[2020-04-15] MEDS ORDERED: IPRATROPIUM/ALBUTEROL 0.5-2.5 MG/3 ML AMPUL NEB ONE (10:43)
[2020-04-15 11:22] LABS: HEMATOCRIT 50.3 % (37.9-51.0); MEAN CORPUSCULAR HEMOGLOBIN 33.6 pg (27.0-33.4); MEAN CORPUSCULAR HGB CONC 33.7 g/dL (32.0-36.0); MEAN CORPUSCULAR VOLUME 100 fl (80-97); PLATELET COUNT 252 10^3/uL (150-450); RED BLOOD COUNT 5.04 10^6/uL (4.35-5.55); RED CELL DISTRIBUTION WIDTH 13.8 % (11.5-14.0)
[2020-04-15] MEDS ORDERED: AZITHROMYCIN INJ 500 MG VIAL IV ONE (11:35)
[2020-04-15] MEDS ORDERED: PIPERACILLIN/TAZOBACTAM 4.5 GM VIAL IV ONE (11:35)
[2020-04-15] MEDS ORDERED: NORMAL SALINE IV ONE (11:35)
[2020-04-15 11:50] LABS: ABSOLUTE LYMPHOCYTES# (MANUAL) 0.8 10^3/uL (0.5-4.7); ABSOLUTE MONOCYTES # (MANUAL) 0.5 10^3/uL (0.1-1.4); BASOPHILS % (MANUAL) 0 % (0-2); EOSINOPHILS % (MANUAL) 0 % (0-6); LYMPHOCYTES % (MANUAL) 5 % (13-45); MONOCYTES % (MANUAL) 3 % (3-13); PLATELET COMMENT ADEQUATE; PLATELET LARGE PRESENT; POLYCHROMASIA SLIGHT; SEGMENTED NEUTROPHILS % (MAN) 92 % (42-78); TOTAL CELLS COUNTED 100
--- NOTE | 2020-04-15 11:50 | RADIOLOGY REPORT (SQ) ---
EXAM DESCRIPTION: CHEST SINGLE VIEW IMAGES COMPLETED DATE/TIME: 04/15/2020 11:19 am REASON FOR STUDY: sob COMPARISON: 01/30/2020 EXAM PARAMETERS: NUMBER OF VIEWS: One view. TECHNIQUE: Single frontal radiographic view of the chest acquired. RADIATION DOSE: NA LIMITATIONS: None. FINDINGS: LUNGS AND PLEURA: Segmental consolidation in the right upper lobe. There is a background of emphysema. MEDIASTINUM AND HILAR STRUCTURES: No masses. Contour normal. HEART AND VASCULAR STRUCTURES: Heart normal in size. Normal vasculature. BONES: No acute findings. HARDWARE: None in the chest. OTHER: No other significant finding. IMPRESSION: Right upper lobe pneumonia. TECHNICAL DOCUMENTATION: JOB ID: [id number] 2010 [employer]- All Rights Reserved Reading location - IP/workstation name: [email or web address]
[2020-04-15 11:54] LABS: ALKALINE PHOSPHATASE 125 U/L (38-126); ANION GAP 15 (5-19); ASPARTATE AMINO TRANSFERASE 74 U/L (17-59); BILIRUBIN,DIRECT 0.7 mg/dL (0.0-0.4); BILIRUBIN,TOTAL 1.5 mg/dL (0.2-1.3); BLOOD UREA NITROGEN 35 mg/dL (7-20); CALCIUM 9.9 mg/dL (8.4-10.2); CARBON DIOXIDE 21 mmol/L (22-30); CHLORIDE 95 mmol/L (98-107); GLUCOSE 116 mg/dL (75-110); POTASSIUM 4.9 mmol/L (3.6-5.0); TOTAL PROTEIN 7.8 g/dL (6.3-8.2)
[2020-04-15 11:54] LABS: VENOUS BLOOD BASE EXCESS -1.9 mmol/L; VENOUS BLOOD HCO3 22.7 mmol/L (20-32); VENOUS BLOOD PCO2 38.5 mmHg (35-63); VENOUS BLOOD PH 7.39 (7.30-7.42)
--- NOTE | 2020-04-15 12:15 | ER Document Report ---
ED General - General Chief Complaint: Breathing Difficulty Stated Complaint: TREMORS Time Seen by Provider: 04/15/20 10:32 Primary Care Provider: MUNIRA LEBRON PA-C [Primary Care Provider] - Follow up as needed Mode of Arrival: Wheelchair Information source: Patient TRAVEL OUTSIDE OF THE [place] IN LAST 30 DAYS: No - HPI Notes: Patient presents stating that he feels short of breath and is having chills and shaking. He states this is been going on for approximately 3 to 4 days. He states it is gradually getting worse. It is worse with exertion and better with rest. His chills radiate throughout his body. He states his symptoms are moderate to severe. They have been constant. He denies any known covert virus exposures. He states that he has not been out of his house and "months". He denies any pain. No nausea or vomiting. He states he has had a dry cough. He states he uses an inhaler at home but has not been getting any relief. - Related Data Allergies/Adverse Reactions: No Known Allergies Allergy (Verified 10/05/18 12:29) Past Medical History - General Information source: Patient - Social History Smoking Status: Current Every Day Smoker Frequency of alcohol use: None Drug Abuse: None Family History: Reviewed & Not Pertinent, CVA Patient has homicidal ideation: No Pulmonary Medical History: Reports: Hx COPD Renal/ Medical History: Denies: Hx Peritoneal Dialysis GI Medical History: Reports: Hx Hepatitis - Alcoholic Psychiatric Medical History: Reports: Hx Depression Infectious Medical History: Reports: Hx Hepatitis - Alcoholic - Immunizations Hx Diphtheria, Pertussis, Tetanus Vaccination: Yes Hx Pneumococcal Vaccination: 07/03/18 Review of Systems - Review of Systems Constitutional: Chills, Malaise Cardiovascular: denies: Chest pain, Palpitations Respiratory: Cough, Short of breath -: Yes All other systems reviewed and negative Physical Exam - Vital signs Vitals: Resp BP Pulse Ox 38 H 139/63 H 90 L 04/15/20 10:37 04/15/20 10:37 04/15/20 10:37 Interpretation: Tachycardic, Hypoxic - initial pulse ox for me of 89%, Tachypneic - General General appearance: Alert, Anxious In distress: Moderate - HEENT Head: Normocephalic, Atraumatic Eyes: Normal Pupils: PERRL - Respiratory Respiratory status: Respiratory distress - Moderate Chest status: Nontender Breath sounds: Decreased air movement, Rhonchi Chest palpation: Normal - Cardiovascular Rhythm: Tachycardia Heart sounds: Normal auscultation Murmur: No - Abdominal Inspection: Normal Distension: No distension Bowel sounds: Normal Tenderness: Nontender Organomegaly: No organomegaly - Back Back: Normal, Nontender - Extremities General upper extremity: Normal inspection, Nontender, Normal color, Normal ROM, Normal temperature General lower extremity: Normal inspection, Nontender, Normal color, Normal ROM, Normal temperature, Normal weight bearing. No: Jessica's sign - Neurological Neuro grossly intact: Yes Cognition: Normal Orientation: AAOx4 [place] Coma Scale Eye Opening: Spontaneous Kumar Coma Scale Verbal: Oriented [place] Coma Scale Motor: Obeys Commands Kumar Coma Scale Total: 15 Speech: Normal Motor strength normal: LUE, RUE, LLE, RLE Sensory: Normal - Psychological Associated symptoms: Normal affect, Normal mood - Skin Skin Temperature: Warm Skin Moisture: Dry Skin Color: Normal Course - Re-evaluation Re-evalutation: 04/15/20 12:14 This is a cachectic appearing male who presents stating he is having chills and shortness of breath. His work-up is consistent with early sepsis and pneumonia. He will be treated with antibiotics fluids and duo nebs as well as admission to the hospital. - Vital Signs Vital signs: Temp Pulse Resp BP Pulse Ox 27 H 112/96 H 94 04/15/20 11:40 04/15/20 11:40 04/15/20 11:11 - Laboratory Result Diagrams: 04/15/20 10:55 04/15/20 10:55 Laboratory results interpreted by me: 04/15/20 04/15/20 04/15/20 10:55 10:55 10:55 WBC 16.0 H MCV 100 H MCH 33.6 H Seg Neuts % (Manual) 92 H Lymphocytes % (Manual) 5 L Abs Neuts (Manual) 14.7 H Sodium 130.8 L Chloride 95 L Carbon Dioxide 21 L BUN 35 H Glucose 116 H Lactic Acid 4.7 H Total Bilirubin 1.5 H Direct Bilirubin 0.7 H AST 74 H - Diagnostic Test Radiology reviewed: Image reviewed, Reports reviewed - EKG Interpretation by Me EKG shows normal: Sinus rhythm Rate: Tachycardia - 124 Rhythm: NSR [place]/QRS: No: Right axis deviation, Left axis deviation Critical Care Note - Critical Care Note Total time excluding time spent on procedures (mins): 40 Comments: Approximately 40 minutes of critical care time were spent treating this patient with pneumonia, sepsis, hypoxia, tachypnea, and tachycardia. This time were spent reviewing records. There is been talking to multiple consultants. It is spent doing multiple reassessments. Spent reviewing labs and imaging. Discharge - Discharge Clinical Impression: Pneumonia Qualifiers: Pneumonia type: due to unspecified organism Laterality: right Lung location: upper lobe of lung Qualified Code(s): J18.9 - Pneumonia, unspecified organism Sepsis Qualifiers: Sepsis type: sepsis due to unspecified organism Sepsis acute organ dysfunction status: with acute organ dysfunction Severe sepsis acute organ dysfunction type: acute respiratory failure Acute respiratory failure type: with hypoxia Severe sepsis shock status: without septic shock Qualified Code(s): A41.9 - Sepsis, unspecified organism; R65.20 - Severe sepsis without septic shock; J96.01 - Acute respiratory failure with hypoxia Condition: Serious Disposition: ADMITTED INPATIENT Admitting Provider: Yrn (Hospitalist) - rashid to admit Unit Admitted: IMCU Referrals: MUNIRA LEBRON PA-C [Primary Care Provider] - Follow up as needed
[2020-04-15] MEDS ORDERED: MELOXICAM 7.5 MG TABLET PO PRN (13:12)
[2020-04-15] MEDS ORDERED: GUAIFENESIN SYRP 200 MG/10 ML UDC PO PRN (13:14)
[2020-04-15] MEDS ORDERED: LEVALBUTEROL HCL NEB 1.25 MG/3 ML AMPUL NEB PRN (13:14)
--- NOTE | 2020-04-15 13:31 | PDOC H&P ---
History of Present Illness Admission Date/PCP: 04/15/20 13:07 MUNIRA LEBRON PA-C Patient complains of: Shaking chills History of Present Illness: TRACIE ETIENNE is a 74 year old male with a past medical history notable for COPD, tobacco dependence with continuous use, resting tremor, and remote alcohol dependence (greater than 1 year sobriety) who presents to the emergency department today with a complaint of 3 to 4 days progressively worsening shaking chills and worsening tremor that is exacerbated by activity. He notes a wet sounding cough but without sputum production. Evaluation in the emergency department revealed sepsis with Tachycardia (HR 130), tachypnea (RR 29), hypoxia on room air, leukocytosis (WBC is 16, lymphocytes 5), mild hyponatremia (NA 130) and lactic acidosis (4.7) with chest x-ray demonstrating a right upper lobe consolidation. Patient is provided IV fluid resuscitation per sepsis guidelines IV Zosyn and azithromycin. He is referred to the hospitalist service for admission management of the above- stated complaints and findings. Past Medical History Cardiac Medical History: Denies: Hyperlipidema, Hypertension Pulmonary Medical History: Reports: Chronic Obstructive Pulmonary Disease (COPD) EENT Medical History: Reports: None Neurological Medical History: Reports: None Endocrine Medical History: Reports: None Renal/ Medical History: Reports: None Malignancy Medical History: Reports: None GI Medical History: Reports: Hepatitis - Alcoholic Musculoskeltal Medical History: Reports: None Psychiatric Medical History: Reports: Alcohol Dependency, Depression, Tobacco Dependency Traumatic Medical History: Reports: None Hematology: Reports: None Infectious Medical History: Reports: None Past Surgical History Past Surgical History: Reports: None Social History Information Source: Patient Lives with: Alone Smoking Status: Current Every Day Smoker Cigarettes Packs Per Day: 1 Frequency of Alcohol Use: None Last Alcohol Use: 04/02/19 Hx Recreational Drug Use: No Drugs: None Hx Prescription Drug Abuse: No - Advance Directive Resuscitation Status: Full Code Surrogate healthcare decision maker:: Patient's close friend, Gilbert Pink, . Family History Family History: Reviewed & Not Pertinent, CVA Parental Family History Reviewed: Yes Children Family History Reviewed: Yes Sibling(s) Family History Reviewed.: Yes Medication/Allergy Home Medications: Albuterol Sulfate [Proair Hfa Inhalation Aerosol 8.5 gm Mdi] 1 puff IH Q4HP PRN 06/14/19 Primidone [Mysoline 50 Mg Tablet] 50 mg PO DAILY 06/14/19 Meloxicam [Mobic 7.5 mg Tablet] 7.5 mg PO BIDP PRN 04/15/20 Mirtazapine [Remeron 15 mg Tablet] 7.5 mg PO QHS 04/15/20 Allergies/Adverse Reactions: No Known Allergies Allergy (Verified 10/05/18 12:29) Review of Systems Constitutional: PRESENT: anorexia, chills, fatigue. ABSENT: fever(s), head ache(s), weight gain, weight loss Eyes: ABSENT: visual disturbances Ears: ABSENT: hearing changes Cardiovascular: ABSENT: chest pain, dyspnea on exertion, edema, orthropnea, palpitations Respiratory: PRESENT: cough, dyspnea. ABSENT: hemoptysis, sputum Gastrointestinal: ABSENT: abdominal pain, constipation, diarrhea, hematemesis, hematochezia, nausea, vomiting Genitourinary: ABSENT: dysuria, hematuria Musculoskeletal: ABSENT: joint swelling Integumentary: ABSENT: rash, wounds Neurological: ABSENT: abnormal gait, abnormal speech, confusion, dizziness, focal weakness, syncope Psychiatric: ABSENT: anxiety, depression, homidical ideation, suicidal ideation Endocrine: ABSENT: cold intolerance, heat intolerance, polydipsia, polyuria Hematologic/Lymphatic: ABSENT: easy bleeding, easy bruising Physical Exam Vital Signs: Temp Pulse Resp BP Pulse Ox 29 H 101/51 L 93 04/15/20 12:30 04/15/20 12:30 04/15/20 12:30 Intake & Output 04/14/20 04/15/20 04/16/20 06:59 06:59 06:59 Weight 48 kg General appearance: PRESENT: no acute distress, cooperative - pleasant, thin - Cachectic, well-developed Head exam: PRESENT: atraumatic, normocephalic Eye exam: PRESENT: conjunctiva pink, EOMI, PERRLA. ABSENT: scleral icterus Mouth exam: PRESENT: dry mucosa, tongue midline Teeth exam: PRESENT: poor dentation Respiratory exam: PRESENT: clear to auscultation kody, symmetrical, tachypnea, other - Supplemental oxygen by nasal cannula. ABSENT: rales, rhonchi, wheezes Cardiovascular exam: PRESENT: RRR, tachycardia. ABSENT: diastolic murmur, rubs, systolic murmur Pulses: PRESENT: normal dorsalis pedis pul Vascular exam: PRESENT: normal capillary refill GI/Abdominal exam: PRESENT: normal bowel sounds, soft. ABSENT: distended, guarding, mass, organolmegaly, rebound, tenderness Rectal exam: PRESENT: deferred Extremities exam: PRESENT: full ROM. ABSENT: calf tenderness, clubbing, pedal edema Neurological exam: PRESENT: alert, awake, oriented to person, oriented to place, oriented to time, oriented to situation, CN II-XII grossly intact. ABSENT: motor sensory deficit Psychiatric exam: PRESENT: appropriate affect, normal mood. ABSENT: homicidal ideation, suicidal ideation Skin exam: PRESENT: dry, intact, warm. ABSENT: cyanosis, rash Results Laboratory Results: 04/15/20 10:55 04/15/20 10:55 04/15/20 04/15/20 04/15/20 10:55 10:55 10:55 WBC 16.0 H RBC 5.04 Hgb 17.0 Hct 50.3 MCV 100 H MCH 33.6 H MCHC 33.7 RDW 13.8 Plt Count 252 Seg Neutrophils % Not Reportable VBG pH VBG pCO2 VBG HCO3 VBG Base Excess Sodium 130.8 L Potassium 4.9 Chloride 95 L Carbon Dioxide 21 L Anion Gap 15 BUN 35 H Creatinine 1.04 Est GFR ( Amer) > 60 Glucose 116 H Lactic Acid 4.7 H Calcium 9.9 Total Bilirubin 1.5 H AST 74 H Alkaline Phosphatase 125 Total Protein 7.8 Albumin 4.0 04/15/20 11:40 WBC RBC Hgb Hct MCV MCH MCHC RDW Plt Count Seg Neutrophils % VBG pH 7.39 VBG pCO2 38.5 VBG HCO3 22.7 VBG Base Excess -1.9 Sodium Potassium Chloride Carbon Dioxide Anion Gap BUN Creatinine Est GFR ( Amer) Glucose Lactic Acid Calcium Total Bilirubin AST Alkaline Phosphatase Total Protein Albumin 04/15/20 10:55 Troponin I < 0.012 Impressions: Chest X-Ray 04/15/20 10:42 IMPRESSION: Right upper lobe pneumonia. Assessment and Plan - Diagnosis (1) Pneumonia Qualifiers: Pneumonia type: due to unspecified organism Laterality: right Lung lo cation: upper lobe of lung Qualified Code(s): J18.9 - Pneumonia, unspecified organism Is this a current diagnosis for this admission?: Yes Plan: Blood cultures pending. Sputum cultures pending Patient is admitted to [facility] on continuous cardiac telemetry. He is provided supplemental oxygen as needed to maintain oxygen saturations greater than 89%. He is placed on scheduled and as needed nebulizer treatments. He is empirically placed on IV azithromycin and Rocephin for treatment of community-acquired pneumonia. Will adjust antibiotics as cultures result. Mucinex twice daily. Robitussin as needed. Encourage pulmonary toilet with position change, incentive spirometer, flutter valve. --- Low suspicion for Coronovirus. Patient reports strict social isolation with no known contacts. Start vitamin C, vitamin D, zinc, melatonin supplementation. COVID pending. Will obtain baseline D-Dimer, Ferritin, LDH, and CRP. (2) Sepsis Qualifiers: Sepsis type: sepsis due to unspecified organism Sepsis acute organ dysfunction status: with acute organ dysfunction Severe sepsis acute organ dysfunction type: acute respiratory failure Acute respiratory failure type: with hypoxia Severe sepsis shock status: without septic shock Qualified Cod e(s): A41.9 - Sepsis, unspecified organism; R65.20 - Severe sepsis without septic shock; J96.01 - Acute respiratory failure with hypoxia Is this a current diagnosis for this admission?: Yes Plan: Secondary to #1. IV fluid resuscitation per ED provider followed by gentle IV fluids. Continue to trend lactic acid. Cultures and antibiotics as above. (3) Acute respiratory failure with hypoxia Is this a current diagnosis for this admission?: Yes Plan: Secondary to #1. Evaluation management as above. (4) COPD (chronic obstructive pulmonary disease) Qualifiers: Emphysema type: unspecified Is this a current diagnosis for this admission?: Yes Plan: Stable and without exacerbation. Management of pneumonia as above. No indications for steroid therapy at this time. (5) Tobacco dependence Is this a current diagnosis for this admission?: Yes Plan: Smoking cessation encouraged. Nicotine replacement therapies provided. - Time Time Spent with patient: 35 or more minutes Medications reviewed and adjusted accordingly: Yes Anticipated discharge: Home with Homehealth - Inpatient Certification Based on my medical assessment, after consideration of the patient's comorbidities, presenting symptoms, or acuity I expect that the services needed warrant INPATIENT care.: Yes I certify that my determination is in accordance with my understanding of Medicare's requirements for reasonable and necessary INPATIENT services [42 CFR 412.3e].: Yes Medical Necessity: Need For IV Fluids, Need For Continuous Telemetry Monitoring, Need for Nebulizer Therapy and Monitoring of Response, Need for IV Antibiotics, Risk of Diagnosis Which Will Require Inpatient Eval/Care/Monitoring
[2020-04-15] MEDS: NICOTINE 21 MG/24 HR PATCH.TD24 TD SCH (14:07)
[2020-04-15] MEDS: HEPARIN SOD (PORCINE) 5,000 UNIT/ML 1 ML VIAL SUBCUT SCH ×2 (14:07→22:51)
--- NOTE | 2020-04-15 14:33 | EKG REPORT ---
SEVERITY:- ABNORMAL ECG - SINUS TACHYCARDIA WALT, CONSIDER BIATRIAL ABNORMALITIES : Confirmed by: Selwyn Olvera MD 15-Apr-2020 14:31:46
[2020-04-15 16:45] LABS: C-REACTIVE PROTEIN 222.5 mg/L (<10.0)
[2020-04-15] MEDS: ASCORBIC ACID 500 MG TABLET PO SCH (17:16)
[2020-04-15] MEDS: IPRATROPIUM/ALBUTEROL 0.5-2.5 MG/3 ML AMPUL NEB SCH (17:52)
[2020-04-15] MEDS ORDERED: DEXAMETHASONE SOD PHOSPHATE INJ 4 MG/1 ML VIAL IV ONE (18:08)
[2020-04-15] MEDS ORDERED: HEPARIN SODIUM,PORCINE/D5W 25,000 UNIT/250 ML RTUINJ IV PRN (18:12)
[2020-04-15] MEDS ORDERED: HEPARIN SOD (PORCINE) 1,000 UNIT/ML 10 ML VIAL IV ONE (18:12)
[2020-04-15] MEDS ORDERED: NORMAL SALINE 1000 ML 1,000 ML IV ONE (18:12)
[2020-04-15 18:51] LABS: ARTERIAL BLOOD BASE EXCESS -3.5 mmol/L; ARTERIAL BLOOD H2CO3 0.85 mmol/L (1.05-1.35); ARTERIAL BLOOD PCO2 28.2 mmHg (35-45); ARTERIAL BLOOD PH 7.45 (7.35-7.45); ARTERIAL BLOOD PO2 103.4 mmHg (80-100); ARTERIAL BLOOD TOTAL CO2 19.8 mmol/L (23-27)
[2020-04-15 18:55] LABS: ARTERIAL BLOOD FIO2 6L
[2020-04-15 19:06] LABS: HEMATOCRIT 44.2 % (37.9-51.0); HEMOGLOBIN 15.3 g/dL (13.5-17.0); MEAN CORPUSCULAR HEMOGLOBIN 34.1 pg (27.0-33.4); MEAN CORPUSCULAR HGB CONC 34.6 g/dL (32.0-36.0); MEAN CORPUSCULAR VOLUME 98 fl (80-97); PLATELET COUNT 177 10^3/uL (150-450); RED BLOOD COUNT 4.49 10^6/uL (4.35-5.55); RED CELL DISTRIBUTION WIDTH 13.3 % (11.5-14.0); WHITE BLOOD COUNT 14.5 10^3/uL (4.0-10.5)
[2020-04-15 19:09] LABS: INTERNATIONAL RATION (INR) 1.01; PROTHROMBIN TIME 13.3 SEC (11.4-15.4)
[2020-04-15 19:10] LABS: PARTIAL THROMBOPLASTIN TIME 28.3 SEC (23.5-35.8)
[2020-04-15 19:23] LABS: ABSOLUTE LYMPHOCYTES# (MANUAL) 1.3 10^3/uL (0.5-4.7); ABSOLUTE MONOCYTES # (MANUAL) 0.4 10^3/uL (0.1-1.4); BAND NEUTROPHILS % (MANUAL) 9 % (3-5); BASOPHILS % (MANUAL) 0 % (0-2); EOSINOPHILS % (MANUAL) 0 % (0-6); LYMPHOCYTES % (MANUAL) 9 % (13-45); METAMYELOCYTES % (MANUAL) 1 % (0-1); MONOCYTES % (MANUAL) 3 % (3-13); SEGMENTED NEUTROPHILS % (MAN) 78 % (42-78); TOTAL CELLS COUNTED 100
[2020-04-15 19:25] LABS: BURR CELLS SLIGHT; OVALOCYTES SLIGHT; PLATELET COMMENT ADEQUATE; POIKILOCYTOSIS SLIGHT
[2020-04-15] MEDS ORDERED: KETOROLAC TROMETHAMINE INJ/PF 30 MG/1 ML SDV ONE (19:56)
[2020-04-15] MEDS ORDERED: KETOROLAC TROMETHAMINE INJ/PF 30 MG/1 ML SDV IV ONE (20:30)
[2020-04-15 21:05] LABS: AMORPHOUS SEDIMENT,URINE 2+ /HPF; APPEARANCE,URINE TURBID; BILIRUBIN,URINE NEGATIVE (NEGATIVE); COLOR,URINE YELLOW; GLUCOSE, URINE NEGATIVE (NEGATIVE); KETONES,URINE NEGATIVE (NEGATIVE); LEUKOCYTE ESTERASE,URINE NEGATIVE (NEGATIVE); NITRITE,URINE NEGATIVE (NEGATIVE); PROTEIN,URINE 30 mg/dL (NEGATIVE); URINE SPECIFIC GRAVITY 1.025; UROBILINOGEN,URINE NEGATIVE mg/dL (<2.0)
[2020-04-15] MEDS ORDERED: HEPARIN SOD (PORCINE) 1,000 UNIT/ML 10 ML VIAL IV PRN ×2 (21:13→22:56)
[2020-04-15] MEDS: DEXAMETHASONE SOD PHOS INJ 10 MG/1 ML VIAL IV SCH (22:41)
[2020-04-15] MEDS: FAMOTIDINE 20 MG TABLET PO SCH (22:41)
[2020-04-15] MEDS: MELATONIN 3 MG TABLET PO SCH (22:41)
[2020-04-15] MEDS: MIRTAZAPINE 15 MG TABLET PO SCH (22:41)
[2020-04-15] MEDS: GUAIFENESIN 600 MG TABLET.SA PO SCH (22:41)
[2020-04-15] MEDS: NORMAL SALINE 1000 ML 1,000 ML IV PRN (22:52)
[2020-04-15] MEDS: HEPARIN SODIUM,PORCINE/D5W 25,000 UNIT/250 ML RTUINJ IV PRN (23:14)
[2020-04-16] MEDS: IPRATROPIUM/ALBUTEROL 0.5-2.5 MG/3 ML AMPUL NEB SCH ×3 (00:09→16:06)
[2020-04-16 05:23] LABS: HEMATOCRIT 39.4 % (37.9-51.0); MEAN CORPUSCULAR HEMOGLOBIN 33.2 pg (27.0-33.4); MEAN CORPUSCULAR HGB CONC 33.3 g/dL (32.0-36.0); MEAN CORPUSCULAR VOLUME 100 fl (80-97); PLATELET COUNT 130 10^3/uL (150-450); RED BLOOD COUNT 3.95 10^6/uL (4.35-5.55); RED CELL DISTRIBUTION WIDTH 13.6 % (11.5-14.0); WHITE BLOOD COUNT 13.2 10^3/uL (4.0-10.5)
[2020-04-16 05:26] LABS: HEMOGLOBIN 13.1 g/dL (13.5-17.0)
[2020-04-16 05:29] LABS: INTERNATIONAL RATION (INR) 1.08
[2020-04-16 05:31] LABS: PARTIAL THROMBOPLASTIN TIME 71.5 SEC (23.5-35.8)
[2020-04-16 05:42] LABS: ANION GAP 7 (5-19); BLOOD UREA NITROGEN 35 mg/dL (7-20); CALCIUM 8.1 mg/dL (8.4-10.2); CARBON DIOXIDE 18 mmol/L (22-30); CHLORIDE 107 mmol/L (98-107); GLUCOSE 96 mg/dL (75-110)
[2020-04-16 05:48] LABS: ABSOLUTE LYMPHOCYTES# (MANUAL) 0.1 10^3/uL (0.5-4.7); ABSOLUTE MONOCYTES # (MANUAL) 1.8 10^3/uL (0.1-1.4); BASOPHILS % (MANUAL) 0 % (0-2); EOSINOPHILS % (MANUAL) 1 % (0-6); LYMPHOCYTES % (MANUAL) 1 % (13-45); MONOCYTES % (MANUAL) 14 % (3-13); SEGMENTED NEUTROPHILS % (MAN) 72 % (42-78); TOTAL CELLS COUNTED 100
[2020-04-16 05:49] LABS: BAND NEUTROPHILS % (MANUAL) 12 % (3-5); BURR CELLS SLIGHT; PLATELET COMMENT DECREASED; POLYCHROMASIA SLIGHT; TOXIC GRANULATION SLIGHT; TOXIC VACUOLATION PRESENT
[2020-04-16 06:02] LABS: POTASSIUM 3.9 mmol/L (3.6-5.0)
[2020-04-16] MEDS: NORMAL SALINE 1000 ML 1,000 ML IV PRN ×2 (06:05→20:14)
[2020-04-16] MEDS: ASCORBIC ACID 500 MG TABLET PO SCH ×2 (10:26→17:25)
[2020-04-16] MEDS: ZINC SULFATE 220 MG CAPSULE PO SCH (10:26)
[2020-04-16] MEDS: THIAMINE HCL 100 MG TABLET PO SCH (10:26)
[2020-04-16] MEDS: GUAIFENESIN 600 MG TABLET.SA PO SCH ×2 (10:26→22:26)
[2020-04-16] MEDS: DEXAMETHASONE SOD PHOS INJ 10 MG/1 ML VIAL IV SCH (10:27)
[2020-04-16] MEDS: NICOTINE 21 MG/24 HR PATCH.TD24 TD SCH (10:27)
[2020-04-16] MEDS: FOLIC ACID 1 MG TABLET PO SCH (10:27)
[2020-04-16] MEDS: FAMOTIDINE 20 MG TABLET PO SCH ×2 (10:27→22:26)
[2020-04-16] MEDS: CHOLECALCIFEROL (D3) 400 UNIT TABLET PO SCH (10:29)
[2020-04-16] MEDS: CEFTRIAXONE 1 GM/D5W RTU 1 GM/50 ML RTUPB IV SCH (10:30)
[2020-04-16] MEDS: PRIMIDONE 50 MG TABLET PO SCH (10:36)
[2020-04-16] MEDS: AZITHROMYCIN 500 MG in DEXTROSE 5%-WATER 250 ML IV SCH (12:00)
[2020-04-16 13:11] LABS: PATH REVIEW PATHOLOGIST REVIEWED
[2020-04-16] MEDS ORDERED: ACETAMINOPHEN WITH CODEINE 120-12 MG/5 ML UDCUP PO PRN (14:41)
[2020-04-16] MEDS ORDERED: ACETAMINOPHEN WITH CODEINE #3 TABLET PO PRN (14:57)
--- NOTE | 2020-04-16 16:42 | PDOC PROGRESS REPORT ---
Subjective Progress Note for:: 04/16/20 Subjective:: TRACIE ETIENNE is a 74 year old male with a past medical history notable for COPD, tobacco dependence with continuous use, resting tremor, and remote alcohol dependence (greater than 1 year sobriety) who was admitted 04/15/2020 with acute respiratory failure with hypoxia secondary to right upper lobe pneumonia; COVID PVY. Patient was seen on afternoon rounds. He was found resting in bed, comfortably, on supplemental oxygen at 4 L/min. He is not home O2 dependent. Patient reports continued malaise, fatigue, and dyspnea at rest. He reports bilateral posterior chest wall discomfort with deep inspiration and cough. Otherwise, he states he is actually feeling better today. He denies chills, palpitations, orthopnea, abdominal pain, nausea vomiting and diarrhea. Discussed plan of care with nursing. Reason For Visit: PNEUMONIA Physical Exam Vital Signs: Temp Pulse Resp BP Pulse Ox 98.4 F 114 H 20 116/55 L 93 04/16/20 15:19 04/16/20 15:58 04/16/20 15:58 04/16/20 15:19 04/16/20 15:58 Pulse Oximeter Continuous Start: 04/15/20 13:14 Freq: RTQ4 Status: Active Protocol: Document 04/16/20 15:58 NSM (Rec: 04/16/20 15:59 NSM [id number]) Pulse Oximetry Assessment Oxygen Saturation (92-100) 93 Oxygen Flow Rate (L/min) 4 Oxygen Delivery Method Nasal Cannula Fraction of Inspired Oxygen (FIO2) 36 Equipment Usage Equipment in Use Continuous SpO2 Machine # N1 Intake & Output 04/15/20 04/16/20 04/17/20 06:59 06:59 06:59 Intake Total 3442 Output Total 250 Balance 3192 Weight 48 kg 48 kg General appearance: PRESENT: no acute distress, cooperative, thin, well-developed Head exam: PRESENT: atraumatic, normocephalic Eye exam: PRESENT: conjunctiva pink, EOMI, PERRLA. ABSENT: scleral icterus Mouth exam: PRESENT: moist, tongue midline Teeth exam: PRESENT: poor dentation Respiratory exam: PRESENT: decreased breath sounds - Throughout, symmetrical, tachypnea, other - Supplemental oxygen by nasal cannula. ABSENT: rales, rhonchi, wheezes Cardiovascular exam: PRESENT: RRR, tachycardia - HR 100-110. ABSENT: diastolic murmur, rubs, systolic murmur Pulses: PRESENT: normal dorsalis pedis pul Vascular exam: PRESENT: normal capillary refill Gentrourinary exam: PRESENT: indwelling catheter Extremities exam: PRESENT: full ROM. ABSENT: calf tenderness, clubbing, pedal edema Musculoskeletal exam: PRESENT: ambulatory Neurological exam: PRESENT: alert, awake, oriented to person, oriented to place, oriented to time, oriented to situation, CN II-XII grossly intact. ABSENT: motor sensory deficit Psychiatric exam: PRESENT: appropriate affect, normal mood. ABSENT: homicidal ideation, suicidal ideation Skin exam: PRESENT: dry, intact, warm. ABSENT: cyanosis, rash Results Laboratory Results: 04/16/20 04:55 04/16/20 04:55 04/15/20 04/15/20 04/15/20 13:55 17:04 18:15 WBC RBC Hgb Hct MCV MCH MCHC RDW Plt Count Seg Neutrophils % Carbonic Acid 0.85 L HCO3/H2CO3 Ratio 22:1 ABG pH 7.45 ABG pCO2 28.2 L ABG pO2 103.4 H ABG HCO3 19.0 L ABG O2 Saturation 98.0 ABG Base Excess -3.5 FiO2 6L Sodium Potassium Chloride Carbon Dioxide Anion Gap BUN Creatinine Est GFR ( Amer) Glucose Lactic Acid 2.5 H Calcium Ferritin 979.00 H C-Reactive Protein 222.5 H Urine Color Urine Appearance Urine pH Ur Specific [place] Urine Protein Urine Glucose (UA) Urine Ketones Urine Blood Urine Nitrite Ur Leukocyte Esterase Urine RBC (Auto) 04/15/20 04/15/20 04/16/20 18:29 20:00 04:55 WBC 14.5 H 13.2 H RBC 4.49 3.95 L Hgb 15.3 13.1 L D Hct 44.2 39.4 MCV 98 H 100 H MCH 34.1 H 33.2 MCHC 34.6 33.3 RDW 13.3 13.6 Plt Count 177 130 L Seg Neutrophils % Not Reportable Not Reportable Carbonic Acid HCO3/H2CO3 Ratio ABG pH ABG pCO2 ABG pO2 ABG HCO3 ABG O2 Saturation ABG Base Excess FiO2 Sodium Potassium Chloride Carbon Dioxide Anion Gap BUN Creatinine Est GFR ( Amer) Glucose Lactic Acid Calcium Ferritin C-Reactive Protein Urine Color YELLOW Urine Appearance TURBID Urine pH 5.0 Ur Specific [place] 1.025 Urine Protein 30 H Urine Glucose (UA) NEGATIVE Urine Ketones NEGATIVE Urine Blood NEGATIVE Urine Nitrite NEGATIVE Ur Leukocyte Esterase NEGATIVE Urine RBC (Auto) 1 04/16/20 04:55 WBC RBC Hgb Hct MCV MCH MCHC RDW Plt Count Seg Neutrophils % Carbonic Acid HCO3/H2CO3 Ratio ABG pH ABG pCO2 ABG pO2 ABG HCO3 ABG O2 Saturation ABG Base Excess FiO2 Sodium 131.6 L Potassium 3.9 D Chloride 107 Carbon Dioxide 18 L Anion Gap 7 BUN 35 H Creatinine 0.75 Est GFR ( Amer) > 60 Glucose 96 Lactic Acid Calcium 8.1 L Ferritin C-Reactive Protein Urine Color Urine Appearance Urine pH Ur Specific [place] Urine Protein Urine Glucose (UA) Urine Ketones Urine Blood Urine Nitrite Ur Leukocyte Esterase Urine RBC (Auto) 04/15/20 10:55 Troponin I < 0.012 Impressions: Chest X-Ray 04/15/20 10:42 IMPRESSION: Right upper lobe pneumonia. Assessment and Plan - Diagnosis (1) Pneumonia Qualifiers: Pneumonia type: due to unspecified organism Laterality: right Lung location: upper lobe of lung Qualified Code(s): J18.9 - Pneumonia, unspecified organism Is this a current diagnosis for this admission?: Yes Plan: Blood cultures NGTD Sputum cultures pending WBC is trending down 16-> 14.5-> 13.2 T-max 101.4/24 hours COVID pending. D-dimer, ferritin, CRP are all elevated. Patient is admitted to [facility] on continuous cardiac telemetry. He is provided supplemental oxygen as needed to maintain oxygen saturations greater than 89%. HFNC as needed. He is placed on scheduled and as needed nebulizer treatments. He is empirically placed on IV azithromycin and Rocephin for treatment of community-acquired pneumonia. Will adjust antibiotics as cultures result. Heparin drip pending COVID result Vitamin C, vitamin D, zinc, melatonin supplementation. Decadron 4 mg IV twice daily Mucinex twice daily. Robitussin as needed. Encourage pulmonary toilet with position change, incentive spirometer, flutter valve. (2) Sepsis Qualifiers: Sepsis type: sepsis due to unspecified organism Sepsis acute organ dysfunction status: with acute organ dysfunction Severe sepsis acute organ dysfunction type: acute respiratory failure Acute respiratory failure type: with hypoxia Severe sepsis shock status: without septic shock Qualified Code(s): A41.9 - Sepsis, unspecified organism; R65.20 - Severe sepsis without septic shock; J96.01 - Acute respiratory failure with hypoxia Is this a current diagnosis for this admission?: Yes Plan: Secondary to #1. IV fluid resuscitation per ED provider followed by gentle IV fluids. Trend lactic acid. Cultures and antibiotics as above. (3) Acute respiratory failure with hypoxia Is this a current diagnosis for this admission?: Yes Plan: Secondary to #1. ABG revealed compensated respiratory alkalosis Evaluation and management as above. (4) COPD (chronic obstructive pulmonary disease) Qualifiers: Emphysema type: unspecified Is this a current diagnosis for this admission?: Yes Plan: Stable and without exacerbation. Management of pneumonia as above. (5) Tobacco dependence Is this a current diagnosis for this admission?: Yes Plan: Smoking cessation encouraged. Nicotine replacement therapies provided. - Time Time Spent with patient: 35 or more minutes Medications reviewed and adjusted accordingly: Yes Anticipated discharge: Home with Homehealth
[2020-04-16] MEDS: DEXAMETHASONE SOD PHOSPHATE INJ 4 MG/1 ML VIAL IV SCH (22:26)
[2020-04-16] MEDS: MELATONIN 3 MG TABLET PO SCH (22:26)
[2020-04-16] MEDS: MIRTAZAPINE 15 MG TABLET PO SCH (22:26)
[2020-04-17] MEDS: IPRATROPIUM/ALBUTEROL 0.5-2.5 MG/3 ML AMPUL NEB SCH ×3 (00:20→15:49)
[2020-04-17] MEDS: HEPARIN SODIUM,PORCINE/D5W 25,000 UNIT/250 ML RTUINJ IV PRN (04:28)
[2020-04-17 05:14] LABS: HEMATOCRIT 39.3 % (37.9-51.0); HEMOGLOBIN 13.4 g/dL (13.5-17.0); MEAN CORPUSCULAR HEMOGLOBIN 33.6 pg (27.0-33.4); MEAN CORPUSCULAR HGB CONC 34.1 g/dL (32.0-36.0); MEAN CORPUSCULAR VOLUME 99 fl (80-97); PLATELET COUNT 136 10^3/uL (150-450); RED BLOOD COUNT 3.99 10^6/uL (4.35-5.55); RED CELL DISTRIBUTION WIDTH 13.6 % (11.5-14.0); WHITE BLOOD COUNT 14.7 10^3/uL (4.0-10.5)
[2020-04-17 05:21] LABS: INTERNATIONAL RATION (INR) 1.04; PROTHROMBIN TIME 13.6 SEC (11.4-15.4)
[2020-04-17 05:26] LABS: BLOOD UREA NITROGEN 30 mg/dL (7-20); CALCIUM 8.5 mg/dL (8.4-10.2); CARBON DIOXIDE 20 mmol/L (22-30); CHLORIDE 109 mmol/L (98-107); GLUCOSE 117 mg/dL (75-110); POTASSIUM 3.5 mmol/L (3.6-5.0)
[2020-04-17 05:33] LABS: ANION GAP 4 (5-19)
[2020-04-17 06:03] LABS: ABSOLUTE LYMPHOCYTES# (MANUAL) 0.9 10^3/uL (0.5-4.7); BAND NEUTROPHILS % (MANUAL) 11 % (3-5); BASOPHILS % (MANUAL) 0 % (0-2); EOSINOPHILS % (MANUAL) 0 % (0-6); LYMPHOCYTES % (MANUAL) 6 % (13-45); MONOCYTES % (MANUAL) 7 % (3-13); SEGMENTED NEUTROPHILS % (MAN) 74 % (42-78); TOTAL CELLS COUNTED 100
[2020-04-17 06:05] LABS: METAMYELOCYTES % (MANUAL) 1 % (0-1); PLATELET COMMENT DECREASED; PROMYELOCYTES % (MANUAL) 1 % (0); TOXIC GRANULATION 1+
[2020-04-17 06:48] LABS: APPEARANCE,URINE CLEAR; BILIRUBIN,URINE NEGATIVE (NEGATIVE); COLOR,URINE YELLOW; GLUCOSE, URINE NEGATIVE (NEGATIVE); KETONES,URINE NEGATIVE (NEGATIVE); LEUKOCYTE ESTERASE,URINE NEGATIVE (NEGATIVE); NITRITE,URINE NEGATIVE (NEGATIVE); PROTEIN,URINE 30 mg/dL (NEGATIVE); URINE SPECIFIC GRAVITY 1.027; UROBILINOGEN,URINE NEGATIVE mg/dL (<2.0)
[2020-04-17] MEDS ORDERED: NORMAL SALINE 1000 ML 1,000 ML IV PRN (08:40)
[2020-04-17] MEDS ORDERED: POTASSIUM CHLORIDE 10 MEQ TABLET.ER PO ONE (09:15)
[2020-04-17] MEDS ORDERED: METOPROLOL TARTRATE PF/INJ 5 MG/5 ML SDV IV ONE ×2 (09:46→11:30)
[2020-04-17] MEDS: DEXAMETHASONE SOD PHOSPHATE INJ 4 MG/1 ML VIAL IV SCH ×2 (11:12→22:59)
[2020-04-17] MEDS: FOLIC ACID 1 MG TABLET PO SCH (11:13)
[2020-04-17] MEDS: NICOTINE 21 MG/24 HR PATCH.TD24 TD SCH (11:13)
[2020-04-17] MEDS: GUAIFENESIN 600 MG TABLET.SA PO SCH ×2 (11:13→22:55)
[2020-04-17] MEDS: PRIMIDONE 50 MG TABLET PO SCH (11:13)
[2020-04-17] MEDS: THIAMINE HCL 100 MG TABLET PO SCH (11:14)
[2020-04-17] MEDS: CEFTRIAXONE 1 GM/D5W RTU 1 GM/50 ML RTUPB IV SCH (11:14)
[2020-04-17] MEDS: ASCORBIC ACID 500 MG TABLET PO SCH ×2 (11:14→19:09)
[2020-04-17] MEDS: CHOLECALCIFEROL (D3) 400 UNIT TABLET PO SCH (11:14)
[2020-04-17] MEDS: FAMOTIDINE 20 MG TABLET PO SCH ×2 (11:14→22:55)
[2020-04-17] MEDS: ZINC SULFATE 220 MG CAPSULE PO SCH (11:15)
[2020-04-17 11:29] LABS: ARTERIAL BLOOD BASE EXCESS -3.2 mmol/L; ARTERIAL BLOOD H2CO3 1.04 mmol/L (1.05-1.35); ARTERIAL BLOOD HCO3 20.9 mmol/L (20-24); ARTERIAL BLOOD O2 SATURATION 98.6 % (94-98); ARTERIAL BLOOD PCO2 34.6 mmHg (35-45)
[2020-04-17 11:30] LABS: ARTERIAL BLOOD FIO2 ROOM AIR FR5
[2020-04-17] MEDS: NORMAL SALINE 1000 ML 1,000 ML IV PRN ×2 (12:34→23:08)
[2020-04-17 13:03] LABS: PATH REVIEW PATHOLOGIST REVIEWED
[2020-04-17] MEDS: AZITHROMYCIN 500 MG in DEXTROSE 5%-WATER 250 ML IV SCH (13:52)
--- NOTE | 2020-04-17 15:08 | RADIOLOGY REPORT (SQ) ---
EXAM DESCRIPTION: CTA CHEST IMAGES COMPLETED DATE/TIME: 04/17/2020 2:35 pm REASON FOR STUDY: acute resp failure; elevated d-dimer COMPARISON: None. TECHNIQUE: CT scan of the chest performed using helical scanning technique with dynamic intravenous contrast injection. Images reviewed with lung, soft tissue and bone windows. Reconstructed coronal and sagittal MPR images reviewed. Additional 3 dimensional post-processing performed to develop Maximal Intensity Projection images (ID P). All images stored on PACS. All CT scanners at this facility use dose modulation, iterative reconstruction, and/or weight based d osing when appropriate to reduce radiation dose to as low as reasonably achievable (ALARA). [facility]: Dose Right [facility]: CareDose [facility]: Dose Right [facility]: Teradose 4D [facility]: IORevolution CONTRAST TYPE AND DOSE: contrast/concentration: Isovue 350.00 mmol/ml; Total Contrast Delivered: 43. 0 ml; Total Saline Delivered: 73.0 ml Contrast bolus adequate for pulmonary arteries and aorta. RENAL FUNCTION: BUN 30 creatinine 0.52 RADIATION DOSE: CT Rad equipment meets quality standard of care and radiation dose reduction technYkone ues were employed. CTDIvol: 4.9 - 5.6 mGy. DLP: 201 mGy-cm. . LIMITATIONS: Sub optimal opacification of the pulmonary arteries. FINDINGS: LUNGS AND PLEURA: Centrilobular emphysema. Cavitary lesions in both upper lobes, left lar ramila than right. Bilateral airspace disease in the upper lobes with left pleural effusion including f luid in the fissure. Dense airspace disease in the left lower lobe posteriorly with some air broncho grams. AORTA AND GREAT VESSELS: No aneurysm. No dissection. HEART: No pericardial effusion. Moderate to marked coronary artery calcifications. PULMONARY ARTERIES: No emboli visualized in the main pulmonary arteries or the segmental branches. HILAR AND MEDIASTINAL STRUCTURES: No identified masses or abnormal nodes. HARDWARE: None in the chest. UPPER ABDOMEN: There is a 51 mm slightly hypodense lesion in the liver on the last image. There are 2 contiguous hypodense lesions in the right lobe of the liver laterally. The smaller of the 2 is per ipheral enhancement. THYROID AND OTHER SOFT TISSUES: No masses. No adenopathy. BONES: No acute or significant finding. 3D MIPS: Confirm above findings. OTHER: No other significant finding. IMPRESSION: 1. There is no pulmonary embolus. There is no aortic aneurysm or dissection. 2. Pulmonary emphysema. 3. There pituitary lesions in both upper lobes concerning for perhaps fungal disease or tuberculosis . Neoplasm cannot entirely be excluded. 4. Left pleural effusion including fluid in the fissure. 5. Airspace disease in the left upper lobe adjacent to the fissure and in the left base. Pneumonia versus atelectasis. 6. Hepatic lesion measuring 51 mm. Cannot exclude neoplasm. 7. Smaller hepatic lesions in the right lobe, possible hemangiomas. Cannot exclude neoplasm. COMMENT: Quality ID # [id number]: Final reports with documentation of one or more dose reduction techniques (e.g., Automated exposure control, adjustment of the mA and/or kV according to patient size, use of iterative reconstruction technique) TECHNICAL DOCUMENTATION: JOB ID: [id number] 2010 [employer]- All Rights Reserved Reading location - IP/workstation name: [email or web address]
--- NOTE | 2020-04-17 16:39 | PDOC PROGRESS REPORT ---
Subjective Progress Note for:: 04/17/20 Subjective:: TRACIE ETIENNE is a 74 year old male with a past medical history notable for COPD, tobacco dependence with continuous use, resting tremor, and remote alcohol dependence (greater than 1 year sobriety) who was admitted 04/15/2020 with acute respiratory failure with hypoxia secondary to right upper lobe pneumonia. Patient was seen on morning rounds. Discussed patient's bedside early this morning by nursing with concern regarding vital sign changes. Patient was in si nus tachycardia with variable heart rate 140-180, continued tachypnea in the high 20s/low 30s, and increased oxygen requirement. Patient actually appears to be doing well; alert and oriented x4. He reports that his breathing is slightly improved; continue to improve following start of HFNC. He was noted to be tachypneic with shallow breathing and accessory muscle use. He reports continued dyspnea at rest, productive cough, fatigue. He denies fever, chills, palpitations, orthopnea, abdominal pain, nausea vomiting and diarrhea. Discussed plan of care with nursing. Reason For Visit: PNEUMONIA Physical Exam Vital Signs: Temp Pulse Resp BP Pulse Ox 97.5 F 108 H 16 108/61 95 04/17/20 07:33 04/17/20 15:49 04/17/20 15:49 04/17/20 07:33 04/17/20 15:49 Pulse Oximeter Continuous Start: 04/15/20 13:14 Freq: RTQ4 Status: Active Protocol: Document 04/17/20 15:49 [facility] (Rec: 04/17/20 16:01 [facility] [id number]) Pulse Oximetry Assessment Oxygen Saturation (92-100) 95 Oxygen Flow Rate (L/min) 50 Oxygen Delivery Method High Flow Nasal Cannula Fraction of Inspired Oxygen (FIO2) 64 Equipment Usage Equipment in Use Continuous SpO2 Machine # 2 Intake & Output 04/16/20 04/17/20 04/18/20 06:59 06:59 06:59 Intake Total 3442 1534 395 Output Total 250 400 400 Balance 3192 1134 -5 Weight 48 kg 48.2 kg 48.2 kg General appearance: PRESENT: cooperative - Pleasant, mild distress, thin - Cachectic, well-developed Head exam: PRESENT: atraumatic, normocephalic Eye exam: PRESENT: conjunctiva pink, EOMI, PERRLA. ABSENT: scleral icterus Mouth exam: PRESENT: moist, tongue midline Respiratory exam: PRESENT: decreased breath sounds - Throughout, symmetrical, tachypnea - Shallow, other - HFNC; 64% 50 lpm to maintain SpO2 in the low to mid 90s. ABSENT: rales, rhonchi, wheezes Cardiovascular exam: PRESENT: RRR, tachycardia - 140-180. ABSENT: diastolic murmur, rubs, systolic murmur Pulses: PRESENT: normal dorsalis pedis pul Vascular exam: PRESENT: normal capillary refill Extremities exam: PRESENT: full ROM. ABSENT: calf tenderness, clubbing, pedal edema Neurological exam: PRESENT: alert, awake, oriented to person, oriented to place, oriented to time, oriented to situation, CN II-XII grossly intact, other - Intermittent confusion/hallucinations. ABSENT: motor sensory deficit Psychiatric exam: PRESENT: anxious, appropriate affect. ABSENT: homicidal ideation, suicidal ideation Skin exam: PRESENT: dry, intact, warm. ABSENT: cyanosis, rash Results Laboratory Results: 04/17/20 04:56 04/17/20 04:56 04/17/20 04/17/20 04/17/20 04:56 04:56 06:07 WBC 14.7 H RBC 3.99 L Hgb 13.4 L Hct 39.3 MCV 99 H MCH 33.6 H MCHC 34.1 RDW 13.6 Plt Count 136 L Seg Neutrophils % Not Reportable Carbonic Acid HCO3/H2CO3 Ratio ABG pH ABG pCO2 ABG pO2 ABG HCO3 ABG O2 Saturation ABG Base Excess FiO2 Sodium 133.2 L Potassium 3.5 L Chloride 109 H Carbon Dioxide 20 L Anion Gap 4 L BUN 30 H Creatinine 0.52 Est GFR ( Amer) > 60 Glucose 117 H Calcium 8.5 Urine Color YELLOW Urine Appearance CLEAR Urine pH 6.0 Ur Specific [place] 1.027 Urine Protein 30 H Urine Glucose (UA) NEGATIVE Urine Ketones NEGATIVE Urine Blood MODERATE H Urine Nitrite NEGATIVE Ur Leukocyte Esterase NEGATIVE Urine WBC (Auto) 2 Urine RBC (Auto) 76 04/17/20 11:15 WBC RBC Hgb Hct MCV MCH MCHC RDW Plt Count Seg Neutrophils % Carbonic Acid 1.04 L HCO3/H2CO3 Ratio 20:1 ABG pH 7.40 ABG pCO2 34.6 L ABG pO2 129.0 H ABG HCO3 20.9 ABG O2 Saturation 98.6 H ABG Base Excess -3.2 FiO2 ROOM AIR FR5 Sodium Potassium Chloride Carbon Dioxide Anion Gap BUN Creatinine Est GFR ( Amer) Glucose Calcium Urine Color Urine Appearance Urine pH Ur Specific [place] Urine Protein Urine Glucose (UA) Urine Ketones Urine Blood Urine Nitrite Ur Leukocyte Esterase Urine WBC (Auto) Urine RBC (Auto) 04/15/20 04/17/20 10:55 04:56 Troponin I < 0.012 NT-Pro-B Natriuret Pep 3360 H Impressions: Chest X-Ray 04/15/20 10:42 IMPRESSION: Right upper lobe pneumonia. Chest/Abdomen CTA 04/17/20 00:00 IMPRESSION: 1. There is no pulmonary embolus. There is no aortic aneurysm or dissection. 2. Pulmonary emphysema. 3. There pituitary lesions in both upper lobes concerning for perhaps fungal disease or tuberculosis. Neoplasm cannot entirely be excluded. 4. Left pleural effusion including fluid in the fissure. 5. Airspace disease in the left upper lobe adjacent to the fissure and in the left base. Pneumonia versus atelectasis. 6. Hepatic lesion measuring 51 mm. Cannot exclude neoplasm. 7. Smaller hepatic lesions in the right lobe, possible hemangiomas. Cannot exclude neoplasm. Assessment and Plan - Diagnosis (1) Pneumonia Qualifiers: Pneumonia type: due to unspecified organism Laterality: right Lung location: upper lobe of lung Qualified Code(s): J18.9 - Pneumonia, unspecified organism Is this a current diagnosis for this admission?: Yes Plan: Blood cultures NGTD Sputum cultures shows 2 strains gram-negative rods WBC 16-> 14.5-> 13.2-> 14.7 T-max 101.4/48 hours, 99.4-24 hrs COVID negative D-dimer, ferritin, CRP are all elevated. CTA chest negative for pulmonary embolus. Pulmonary emphysema present. Bilateral upper lobe cavitary lesions; concerning for fungal disease versus tuberculosis. Neoplasm not excluded. Left pleural effusion present. Airspace disease to the left upper lobe. TB r/o: Airborne precautions. AFB sputum culture daily x3 days Fungal sputum culture. PPD placement. Infection control notified. Patient is admitted to [facility] on continuous cardiac telemetry. He is provided supplemental oxygen as needed to maintain oxygen saturations greater than 89%. HFNC as needed. He is placed on scheduled and as needed nebulizer treatments. He is empirically placed on IV azithromycin and Rocephin for treatment of community-acquired pneumonia. Will adjust antibiotics as cultures result. Continue Vitamin C, vitamin D, zinc, melatonin supplementation. Continue Decadron 4 mg IV twice daily Mucinex twice daily. Robitussin as needed. Tylenol with codeine as needed for pleurisy. Encourage pulmonary toilet with position change, incentive spirometer, flutter valve. (2) Cavitary lesion of lung Is this a current diagnosis for this admission?: Yes Plan: Evaluation and management as above. Heme/Onc consulted. Appreciate Dr. Velasquez's assistance. Will reach out to Dr. Hess, Pulmonology, to see if he might be available to assist. (3) Sepsis Qualifiers: Sepsis type: sepsis due to unspecified organism Sepsis acute organ dysfunct ion status: with acute organ dysfunction Severe sepsis acute organ dysfunction type: acute respiratory failure Acute respiratory failure type: with hypoxia Severe sepsis shock status: without septic shock Qualified Code(s): A41.9 - Sepsis, unspecified organism; R65.20 - Severe sepsis without septic shock; J96.01 - Acute respiratory failure with hypoxia Is this a current diagnosis for this admission?: Yes Plan: Secondary to #1. IV fluid resuscitation per ED provider followed by gentle IV fluids. Trend lactic acid. Cultures and antibiotics as above. (4) Acute respiratory failure with hypoxia Is this a current diagnosis for this admission?: Yes Plan: Secondary to #1. ABG revealed compensated respiratory alkalosis Follow-up ABG after placement on high flow nasal cannula confirms same. Slightly improved. Evaluation and management as above. (5) Hepatic lesion Is this a current diagnosis for this admission?: Yes Plan: CT of the chest incidentally found hepatic lesion measuring 51 mm. Smaller hepatic lesions to the right lobe were noted; possibly hemangiomas. Neoplasms not excluded new either. Oncology consulted; appreciate Dr. Loco's assistance. Discussed with assistant womens volleyball coach; recommend dedicated CT abdomen pelvis with IV and oral contrast for further evaluation. States that they may be able to identify a liver lesion amenable to CT-guided biopsy but requests further imagining. (6) COPD (chronic obstructive pulmonary disease) Qualifiers: COPD type: emphysema Is this a current diagnosis for this admission?: Yes Plan: Stable and without exacerbation. Management of pneumonia as above. (7) Tobacco dependence Is this a current diagnosis for this admission?: Yes Plan: Smoking cessation encouraged. Nicotine replacement therapies provided. - Time Time Spent with patient: 35 or more minutes Medications reviewed and adjusted accordingly: Yes
[2020-04-17] MEDS ORDERED: TUBERCULIN,PURIF.PROT.DERIV. 5 TU/0.1 ML TEST 1 ML VIAL ID ONE ×2 (17:30→22:00)
[2020-04-17] MEDS ORDERED: OLANZAPINE INJ/PF 10 MG SDV IM PRN (17:51)
[2020-04-17] MEDS ORDERED: LORAZEPAM INJ 2 MG/1 ML VIAL IV PRN (18:22)
--- NOTE | 2020-04-17 18:27 | EKG REPORT ---
SEVERITY:- OTHERWISE NORMAL ECG - SINUS TACHYCARDIA : Confirmed by: Selwyn Olvera MD 17-Apr-2020 18:26:34
[2020-04-17] MEDS ORDERED: OLANZAPINE INJ/PF 10 MG SDV IM ONE (19:00)
[2020-04-17] MEDS: IPRATROPIUM BROMIDE 0.02% NEB 0.5 MG/2.5 ML AMPUL NEB SCH (20:43)
[2020-04-17] MEDS: LEVALBUTEROL HCL NEB 1.25 MG/3 ML AMPUL NEB SCH (20:43)
[2020-04-17] MEDS: HEPARIN SOD (PORCINE) 5,000 UNIT/ML 1 ML VIAL SUBCUT SCH (22:55)
[2020-04-17] MEDS: MELATONIN 3 MG TABLET PO SCH (22:55)
[2020-04-17] MEDS: MIRTAZAPINE 15 MG TABLET PO SCH (22:55)
[2020-04-18] MEDS: LEVALBUTEROL HCL NEB 1.25 MG/3 ML AMPUL NEB SCH ×4 (01:48→19:44)
[2020-04-18] MEDS: IPRATROPIUM BROMIDE 0.02% NEB 0.5 MG/2.5 ML AMPUL NEB SCH ×4 (01:48→19:45)
[2020-04-18] MEDS: HEPARIN SOD (PORCINE) 5,000 UNIT/ML 1 ML VIAL SUBCUT SCH ×2 (05:03→14:20)
[2020-04-18] MEDS ORDERED: METOPROLOL TARTRATE PF/INJ 5 MG/5 ML SDV IV ONE ×4 (06:04→20:30)
[2020-04-18 06:59] LABS: HEMOGLOBIN 14.1 g/dL (13.5-17.0); MEAN CORPUSCULAR HEMOGLOBIN 33.6 pg (27.0-33.4); MEAN CORPUSCULAR HGB CONC 34.3 g/dL (32.0-36.0); MEAN CORPUSCULAR VOLUME 98 fl (80-97); PLATELET COUNT 133 10^3/uL (150-450); RED BLOOD COUNT 4.19 10^6/uL (4.35-5.55); RED CELL DISTRIBUTION WIDTH 13.5 % (11.5-14.0)
[2020-04-18 07:24] LABS: ALBUMIN 2.3 g/dL (3.5-5.0); ALKALINE PHOSPHATASE 78 U/L (38-126); ANION GAP 6 (5-19); ASPARTATE AMINO TRANSFERASE 42 U/L (17-59); BILIRUBIN,DIRECT 0.2 mg/dL (0.0-0.4); BILIRUBIN,TOTAL 0.6 mg/dL (0.2-1.3); BLOOD UREA NITROGEN 26 mg/dL (7-20); CALCIUM 9.2 mg/dL (8.4-10.2); CARBON DIOXIDE 21 mmol/L (22-30); CHLORIDE 106 mmol/L (98-107); GLUCOSE 112 mg/dL (75-110); POTASSIUM 3.7 mmol/L (3.6-5.0); TOTAL PROTEIN 5.3 g/dL (6.3-8.2)
--- NOTE | 2020-04-18 07:35 | Progress Note ---
Provider Note Provider Note: Patient was discussed with Vasyl Hammond. Patient with cavitary lesions in the lung. Possible diagnoses include infectious or malignant etiologies. Only way to know for sure if this is cancer would be biopsy/pathology. This may be obtained with bronchoscopy or with Core needle biopsy. However, these appear more likely to be infectious. He is currently in the process of being ruled out for TB. If this is negative, I will be happy to help arrange bronchoscopy or other biopsy to rule out cancer. I will be available over the weekend for any questions or concerns. Please call if needed.
[2020-04-18] MEDS: FOLIC ACID 1 MG TABLET PO SCH (09:48)
[2020-04-18] MEDS: GUAIFENESIN 600 MG TABLET.SA PO SCH ×2 (09:49→21:17)
[2020-04-18] MEDS: ASCORBIC ACID 500 MG TABLET PO SCH ×2 (09:49→18:43)
[2020-04-18] MEDS: THIAMINE HCL 100 MG TABLET PO SCH (09:49)
[2020-04-18] MEDS: FAMOTIDINE 20 MG TABLET PO SCH ×2 (09:49→21:17)
[2020-04-18] MEDS: CHOLECALCIFEROL (D3) 400 UNIT TABLET PO SCH (09:50)
[2020-04-18] MEDS: ZINC SULFATE 220 MG CAPSULE PO SCH (09:50)
[2020-04-18] MEDS: PRIMIDONE 50 MG TABLET PO SCH (09:50)
[2020-04-18] MEDS: DEXAMETHASONE SOD PHOSPHATE INJ 4 MG/1 ML VIAL IV SCH ×2 (09:51→21:18)
[2020-04-18] MEDS: NICOTINE 21 MG/24 HR PATCH.TD24 TD SCH (09:58)
[2020-04-18] MEDS: NORMAL SALINE 1000 ML 1,000 ML IV PRN (10:00)
[2020-04-18] MEDS ORDERED: CEFEPIME 2 GM/D5W RTU 2 GM/50 ML RTUPB IV SCH (11:00)
[2020-04-18] MEDS: CEFEPIME HCL 2 GM in DEXTROSE 5%-WATER 50 ML IV SCH ×2 (11:32→21:16)
[2020-04-18] MEDS: AZITHROMYCIN 500 MG in DEXTROSE 5%-WATER 250 ML IV SCH (14:19)
--- NOTE | 2020-04-18 15:08 | PDOC PROGRESS REPORT ---
Subjective Progress Note for:: 04/18/20 Subjective:: TRACIE ETIENNE is a 74 year old male with a past medical history notable for COPD, tobacco dependence with continuous use, resting tremor, and remote alcohol dependence (greater than 1 year sobriety) who was admitted 04/15/2020 with acute respiratory failure with hypoxia secondary to right upper lobe pneumonia. Patient was seen on morning rounds. Patient was found resting in bed, comfortably, on high flow nasal cannula; 90% FiO2 at 35 L/min. Currently A&O to person, place, year, and situation; more calm and understanding of plan of care at this time. He again states that if he is found to have a cancer dx, he would want to "go home until it's my time." Patient reports continued dyspnea at rest, nonproductive though wet sounding cough, and pleurisy. His chest wall pain is increased to the lower left chest wall. He denies fever, chills, palpitations, orthopnea, abdominal pain, nausea vomiting and diarrhea. Discussed plan of care with nursing. Reason For Visit: PNEUMONIA Physical Exam Vital Signs: Temp Pulse Resp BP Pulse Ox 98.5 F 120 H 22 H 108/84 90 L 04/18/20 12:00 04/18/20 13:51 04/18/20 13:51 04/18/20 12:00 04/18/20 13:51 Pulse Oximeter Continuous Start: 04/15/20 13:14 Freq: RTQ4 Status: Active Protocol: Document 04/18/20 13:51 [facility] (Rec: 04/18/20 14:07 [facility] [id number]) Pulse Oximetry Assessment Oxygen Saturation (92-100) 90 Oxygen Flow Rate (L/min) 50 Oxygen Delivery Method High Flow Nasal Cannula Fraction of Inspired Oxygen (FIO2) 60 Equipment Usage Equipment in Use Continuous SpO2 Machine # N 1 Additional RT Notes Other this [employer] assumed care from [facility] at 1215 Intake & Output 04/17/20 04/18/20 04/19/20 06:59 06:59 06:59 Intake Total 1534 1645 118 Output Total 400 875 250 Balance 1134 770 -132 Weight 48.2 kg 48.8 kg General appearance: PRESENT: cooperative, mild distress, thin - Cachectic, well- developed, well-nourished Head exam: PRESENT: atraumatic, normocephalic Eye exam: PRESENT: conjunctiva pink, EOMI, PERRLA. ABSENT: scleral icterus Mouth exam: PRESENT: moist, tongue midline Respiratory exam: PRESENT: accessory muscle use, chest wall tenderness, decreased breath sounds - Throughout, symmetrical, tachypnea - Shallow, unlabored, other - HFNC; 90% 30 L/min. ABSENT: rales, wheezes Cardiovascular exam: PRESENT: RRR, tachycardia - HR 100-120. ABSENT: diastolic murmur, rubs, systolic murmur Pulses: PRESENT: normal dorsalis pedis pul Vascular exam: PRESENT: normal capillary refill GI/Abdominal exam: PRESENT: normal bowel sounds, soft. ABSENT: distended, guarding, mass, organolmegaly, rebound, tenderness Rectal exam: PRESENT: deferred Gentrourinary exam: PRESENT: indwelling catheter Extremities exam: PRESENT: full ROM. ABSENT: calf tenderness, clubbing, pedal edema Neurological exam: PRESENT: alert, awake, oriented to person, oriented to place, oriented to time, oriented to situation, CN II-XII grossly intact, other - inte rmittent confusion. ABSENT: motor sensory deficit Psychiatric exam: PRESENT: anxious, appropriate affect, normal mood. ABSENT: homicidal ideation, suicidal ideation Skin exam: PRESENT: dry, intact, warm. ABSENT: cyanosis, rash Results Laboratory Results: 04/18/20 06:42 04/18/20 06:42 04/18/20 04/18/20 06:42 06:42 WBC 19.0 H RBC 4.19 L Hgb 14.1 Hct 41.0 MCV 98 H MCH 33.6 H MCHC 34.3 RDW 13.5 Plt Count 133 L Sodium 132.7 L Potassium 3.7 Chloride 106 Carbon Dioxide 21 L Anion Gap 6 BUN 26 H Creatinine 0.52 Est GFR ( Amer) > 60 Glucose 112 H Calcium 9.2 Total Bilirubin 0.6 AST 42 Alkaline Phosphatase 78 Total Protein 5.3 L Albumin 2.3 L 04/15/20 20:46 Sputum Gram Stain - Final 04/15/20 04/17/20 10:55 04:56 Troponin I < 0.012 NT-Pro-B Natriuret Pep 3360 H Impressions: Chest X-Ray 04/15/20 10:42 IMPRESSION: Right upper lobe pneumonia. Chest/Abdomen CTA 04/17/20 00:00 IMPRESSION: 1. There is no pulmonary embolus. There is no aortic aneurysm or dissection. 2. Pulmonary emphysema. 3. There pituitary lesions in both upper lobes concerning for perhaps fungal disease or tuberculosis. Neoplasm cannot entirely be excluded. 4. Left pleural effusion including fluid in the fissure. 5. Airspace disease in the left upper lobe adjacent to the fissure and in the left base. Pneumonia versus atelectasis. 6. Hepatic lesion measuring 51 mm. Cannot exclude neoplasm. 7. Smaller hepatic lesions in the right lobe, possible hemangiomas. Cannot exclude neoplasm. Assessment and Plan - Diagnosis (1) Pneumonia Qualifiers: Pneumonia type: due to unspecified organism Laterality: right Lung location: upper lobe of lung Qualified Code(s): J18.9 - Pneumonia, unspecified organism Is this a current diagnosis for this admission?: Yes Plan: Blood cultures NGTD Sputum cultures shows Pseudomonas, gram-negative fabiola, normal keshav WBC 16-> 14.5-> 13.2-> 14.7-> 19 T-max 101.4/72 hours, 99.4/48 hrs COVID negative D-dimer, ferritin, CRP are all elevated. CTA chest negative for pulmonary embolus. Pulmonary emphysema present. Bilateral upper lobe cavitary lesions; concerning for fungal disease versus tuberculosis. Neoplasm not excluded. Left pleural effusion present. Airspace disease to the left upper lobe. TB r/o: Airborne precautions. AFB sputum culture daily x3 days: AFB #1 pending Fungal sputum culture pending. PPD placement to right forearm; read on 04/20 Infection control notified. Patient is admitted to [facility] on continuous cardiac telemetry. He is provided supplemental oxygen as needed to maintain oxygen saturations greater than 89%. HFNC as needed. He is placed on scheduled and as needed nebulizer treatments. He is empirically placed on antibiotics. Continue IV azithromycin; day #3. Start IV cefepime (for Pseudomonas coverage) Received IV Rocephin x2 days. Continue Vitamin C, vitamin D, zinc, melatonin supplementation. Continue Decadron 4 mg IV twice daily Mucinex twice daily. Robitussin as needed. Tylenol with codeine as needed for pleurisy. Encourage pulmonary toilet with position change, incentive spirometer, flutter valve. (2) Cavitary lesion of lung Is this a current diagnosis for this admission?: Yes Plan: Evaluation and management as above. Heme/Onc consulted. Appreciate Dr. Velasquez's assistance. Per Dr. Velasquez's note; appears to be infectious in origin. Will need to r/o TB prior to arranging for biopsies. Will reach out to Dr. Hess, Pulmonology, to see if he might be available to assist. (3) Sepsis Qualifiers: Sepsis type: sepsis due to unspecified organism Sepsis acute organ dysfun ction status: with acute organ dysfunction Severe sepsis acute organ dysf unction type: acute respiratory failure Acute respiratory failure type: with hypoxia Severe sepsis shock status: without septic shock Qualified Code(s): A41.9 - Sepsis, unspecified organism; R65.20 - Severe sepsis without septic shock; J96.01 - Acute respiratory failure with hypoxia Is this a current diagnosis for this admission?: Yes Plan: Secondary to #1. IV fluid resuscitation per ED provider followed by continued IV fluids. Cultures and antibiotics as above. (4) Acute respiratory failure with hypoxia Is this a current diagnosis for this admission?: Yes Plan: Worsened; increased oxygen support required. Secondary to #1. ABG revealed compensated respiratory alkalosis Follow-up ABG after placement on high flow nasal cannula confirms same. Evaluation and management as above. (5) Hepatic lesion Is this a current diagnosis for this admission?: Yes Plan: CT of the chest incidentally found hepatic lesion measuring 51 mm. Smaller hepatic lesions to the right lobe were noted; possibly hemangiomas. Neoplasms not excluded new either. Oncology consulted; appreciate Dr. Loco's assistance. Discussed with associate professor of radiology; recommend dedicated CT abdomen pelvis with IV and oral contrast for further evaluation. States that they may be able to identify a liver lesion amenable to CT-guided biopsy but requests further imagining. (6) COPD (chronic obstructive pulmonary disease) Qualifiers: COPD type: emphysema Is this a current diagnosis for this admission?: Yes Plan: CT shows advanced emphysema. 65 pack year history. Current tobacco user. Management of pneumonia as above. Currently on steroid and antibiotic therapy with scheduled and as needed nebs. (7) Tobacco dependence Is this a current diagnosis for this admission?: Yes Plan: Smoking cessation encouraged. Nicotine replacement therapies provided. - Time Time Spent with patient: 35 or more minutes Medications reviewed and adjusted accordingly: Yes Anticipated discharge: Hospice - Home hospice Within: Other - >72 hrs.
[2020-04-18] MEDS ORDERED: METOPROLOL TARTRATE 25 MG TABLET PO ONE (19:00)
[2020-04-18] MEDS: METOPROLOL TARTRATE 25 MG TABLET PO SCH (21:17)
[2020-04-18] MEDS: MELATONIN 3 MG TABLET PO SCH (21:17)
[2020-04-18] MEDS: MIRTAZAPINE 15 MG TABLET PO SCH (21:17)
[2020-04-18] MEDS ORDERED: DILTIAZEM HCL INJ 25 MG/5 ML VIAL IV ONE (21:30)
[2020-04-18] MEDS: ENOXAPARIN SODIUM INJ 60 MG/0.6 ML DISP.SYRIN SUBCUT SCH (21:44)
[2020-04-18] MEDS ORDERED: NORMAL SALINE 1000 ML 1,000 ML IV ONE (23:45)
[2020-04-19 00:28] LABS: ARTERIAL BLOOD BASE EXCESS -6.6 mmol/L; ARTERIAL BLOOD H2CO3 0.89 mmol/L (1.05-1.35); ARTERIAL BLOOD HCO3 17.2 mmol/L (20-24); ARTERIAL BLOOD O2 SATURATION 69.3 % (94-98); ARTERIAL BLOOD PCO2 29.6 mmHg (35-45); ARTERIAL BLOOD PH 7.38 (7.35-7.45); ARTERIAL BLOOD TOTAL CO2 18.1 mmol/L (23-27)
[2020-04-19 00:32] LABS: ARTERIAL BLOOD FIO2 100%
[2020-04-19 00:33] LABS: ARTERIAL BLOOD PO2 36.2 mmHg (80-100)
[2020-04-19] MEDS ORDERED: FUROSEMIDE INJ/PF 40 MG/4 ML SDV ONE (01:23)
[2020-04-19] MEDS ORDERED: FUROSEMIDE INJ/PF 40 MG/4 ML SDV IV ONE (01:25)
[2020-04-19] MEDS ORDERED: AMIODARONE HCL 150 MG in DEXTROSE 5%-WATER 100 ML IV ONE (01:26)
[2020-04-19] MEDS ORDERED: AMIODARONE HCL INJ 150 MG/3 ML VIAL IV ONE ×2 (01:27→01:28)
[2020-04-19] MEDS ORDERED: DILTIAZEM HCL/D5W 125 MG/125 ML RTUINJ IV ONE (01:30)
[2020-04-19] MEDS ORDERED: DILTIAZEM HCL/D5W 125 MG/125 ML RTUINJ IV PRN (01:32)
[2020-04-19] MEDS: LEVALBUTEROL HCL NEB 1.25 MG/3 ML AMPUL NEB SCH ×3 (02:22→15:37)
[2020-04-19] MEDS: IPRATROPIUM BROMIDE 0.02% NEB 0.5 MG/2.5 ML AMPUL NEB SCH ×3 (02:22→15:47)
--- NOTE | 2020-04-19 02:52 | RADIOLOGY REPORT (SQ) ---
EXAM DESCRIPTION: XR CHEST 1 VIEW COMPLETED DATE/TME: 04/19/2020 00:00 CLINICAL HISTORY: 74 years, Male, HYPOXIA COMPARISON: X-ray chest 04/15/2020 NUMBER OF VIEWS: TECHNIQUE: LIMITATIONS: None. FINDINGS: There is extensive infiltrate involving most of the left lung, compatible with pneumonia. This is a new finding, as compared with the prior study. There is patchy infiltrate in the right upper lobe that is less apparent, as compared with the prior study. There are small bilateral pleural effusions. There is emphysema. There are atherosclerotic changes and tortuosity of the thoracic aorta. IMPRESSION: Extensive left-sided pneumonia. Other findings as described. copyright 2010 [employer]- All Rights Reserved
[2020-04-19] MEDS ORDERED: DIGOXIN INJ 0.5 MG/2 ML AMPULE ONE (02:59)
[2020-04-19] MEDS ORDERED: DIGOXIN INJ 0.5 MG/2 ML AMPULE IV ONE (02:59)
[2020-04-19 03:21] LABS: ARTERIAL BLOOD BASE EXCESS -10.7 mmol/L; ARTERIAL BLOOD H2CO3 1.39 mmol/L (1.05-1.35); ARTERIAL BLOOD HCO3 17.3 mmol/L (20-24); ARTERIAL BLOOD O2 SATURATION 89.6 % (94-98); ARTERIAL BLOOD PCO2 46.2 mmHg (35-45); ARTERIAL BLOOD PO2 69.3 mmHg (80-100); ARTERIAL BLOOD TOTAL CO2 18.7 mmol/L (23-27)
[2020-04-19 03:24] LABS: ARTERIAL BLOOD FIO2 100%; ARTERIAL BLOOD PH 7.19 (7.35-7.45)
[2020-04-19] MEDS ORDERED: ETOMIDATE INJ/PF 20 MG/10 ML SDV IV ONE ×2 (03:30→03:52)
[2020-04-19] MEDS ORDERED: PROPOFOL 1,000 MG/100 ML INFUS..BTL IV ONE (03:44)
[2020-04-19] MEDS ORDERED: PROPOFOL 1,000 MG/100 ML INFUS..BTL IV PRN (03:55)
[2020-04-19 04:36] LABS: HEPATITS B SURFACE ANTIGEN Negative (Negative)
--- NOTE | 2020-04-19 04:38 | RADIOLOGY REPORT (SQ) ---
CLINICAL INDICATION: ETT PLACEMENT. TECHNIQUE: A single portable AP view was obtained of the chest at 0 410 hours. COMPARISON: 0219 hours. FINDINGS: The cardiomediastinal silhouette is normal. The lungs again demonstrate patchy interstitial and airspace disease bilaterally left greater than right. Small effusion/reaction. No pneumothorax. Endotracheal tube tip in good position. Nasogastric tube tip is not seen but clearly below the diaphragm.. IMPRESSION: Satisfactory placement of supportive appliances.
[2020-04-19 05:07] LABS: HEMATOCRIT 45.2 % (37.9-51.0); HEMOGLOBIN 15.1 g/dL (13.5-17.0); MEAN CORPUSCULAR HEMOGLOBIN 33.1 pg (27.0-33.4); MEAN CORPUSCULAR HGB CONC 33.3 g/dL (32.0-36.0); MEAN CORPUSCULAR VOLUME 99 fl (80-97); PLATELET COUNT 152 10^3/uL (150-450); RED BLOOD COUNT 4.55 10^6/uL (4.35-5.55); RED CELL DISTRIBUTION WIDTH 14.3 % (11.5-14.0)
[2020-04-19 05:16] LABS: WHITE BLOOD COUNT 35.3 10^3/uL (4.0-10.5)
--- NOTE | 2020-04-19 05:16 | PDOC CRITICAL CARE PROG REPORT ---
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 ABG drawn and revealed Ph 7.38 PCO2 29.6 and a PO2 of 36.2. The last cxr was on 04/15 which showed severe emphysema and a RML infiltrate. I was asked by Dr Han to come evaluate patient. Upon my arrival patient had increased WOB, unable to speak in full sentences and was also in new onset afib rvr rate in the 160's. He had been given 15mg Cardizem on the floor and became hypotensive, but quickly rebounded. CTA of the chest and abdomen on 04/17/2020 showed bullous emphysema, pulmonary lesions in both upper lobes concerning for fungal disease or TB neoplasm cannot entirely be excluded, hepatic lesion measuring 51 mm. Given his bullous emphysema I was reluctant to start BiPAP on the floor and therefore transferred him to the ICU for further management. EKG obtained showed atrial fibrillation with a rate in the 160s. He was started on a Cardizem drip at 5 mg an hour, he maintained a blood pressure in the 1 teens. Chest x-ray showed a significant left middle and lower lobe infiltrate. Blood gas drawn at 0300 showed a pH of 7.19 PCO2 46.2 PO2 69.3 on 100% nonrebreather. At this time patient had agonal respirations and was unresponsive was therefore intubated with a 7.5 cm ETT 23 at the teeth. His heart rate after intubation was 100-119 with a systolic blood pressure in the 120s. At 5:02 AM he converted to normal sinus rhythm with a heart rate in the 70s. Reason for ICU Addmission:: End-stage COPD, hypoxemic respiratory failure - Medications: Medications reviewed and adjusted accordingly: Yes Sedation:: Propofol titrate for a Rass -2 Physical Exam Vital Signs: Temp Pulse Resp BP Pulse Ox 97.1 F 138 H 36 H 110/56 L 74 L 04/18/20 23:20 04/19/20 02:22 04/19/20 02:28 04/19/20 02:28 04/19/20 02:01 Pulse Oximeter Continuous Start: 04/15/20 13:14 Freq: RTQ4 Status: Active Protocol: Document 04/19/20 02:22 ELENI (Rec: 04/19/20 02:29 ELENI [email or web address]) Additional RT Notes Other pt is aggitated with facemask on. Pulse Oximetry Assessment Oxygen Flow Rate (L/min) 50 Oxygen Delivery Method High Flow Nasal Cannula Equipment Usage Equipment in Use Continuous SpO2 Machine # 1 Intake & Output 04/17/20 04/18/20 04/19/20 06:59 06:59 06:59 Intake Total 1534 1645 2442 Output Total 400 875 425 Balance 3646 160 0388 Weight 48.2 kg 48.8 kg 48.8 kg Weight/Height Weight 48.8 kg Height 5 ft 9 in General appearance: PRESENT: severe distress Head exam: PRESENT: atraumatic, normocephalic Eye exam: PRESENT: PERRLA Mouth exam: PRESENT: moist Teeth exam: PRESENT: edentulous Respiratory exam: PRESENT: accessory muscle use, crackles, rhonchi Cardiovascular exam: PRESENT: irregular rhythm, tachycardia GI/Abdominal exam: PRESENT: normal bowel sounds Extremities exam: PRESENT: clubbing Neurological exam: PRESENT: altered Psychiatric exam: PRESENT: agitated, anxious Skin exam: PRESENT: cyanosis, skin tears Tubes/Lines: PRESENT: Endotracheal Tube, Nasogastic Tube Laboratory/Radiographs Laboratory Results: 04/18/20 06:42 04/18/20 06:42 04/18/20 04/18/20 04/19/20 06:42 06:42 00:20 WBC 19.0 H RBC 4.19 L Hgb 14.1 Hct 41.0 MCV 98 H MCH 33.6 H MCHC 34.3 RDW 13.5 Plt Count 133 L Carbonic Acid 0.89 L HCO3/H2CO3 Ratio 19:1 ABG pH 7.38 ABG pCO2 29.6 L ABG pO2 36.2 L* ABG HCO3 17.2 L ABG O2 Saturation 69.3 L ABG Base Excess -6.6 FiO2 100% Sodium 132.7 L Potassium 3.7 Chloride 106 Carbon Dioxide 21 L Anion Gap 6 BUN 26 H Creatinine 0.52 Est GFR ( Amer) > 60 Glucose 112 H Calcium 9.2 Total Bilirubin 0.6 AST 42 Alkaline Phosphatase 78 Total Protein 5.3 L Albumin 2.3 L 04/19/20 03:08 WBC RBC Hgb Hct MCV MCH MCHC RDW Plt Count Carbonic Acid 1.39 H HCO3/H2CO3 Ratio 12:1 ABG pH 7.19 L* ABG pCO2 46.2 H ABG pO2 69.3 L ABG HCO3 17.3 L ABG O2 Saturation 89.6 L ABG Base Excess -10.7 FiO2 100% Sodium Potassium Chloride Carbon Dioxide Anion Gap BUN Creatinine Est GFR ( Amer) Glucose Calcium Total Bilirubin AST Alkaline Phosphatase Total Protein Albumin 04/15/20 20:46 Sputum Gram Stain - Final 04/15/20 04/17/20 10:55 04:56 Troponin I < 0.012 NT-Pro-B Natriuret Pep 3360 H Impressions: Chest/Abdomen CTA 04/17/20 00:00 IMPRESSION: 1. There is no pulmonary embolus. There is no aortic aneurysm or dissection. 2. Pulmonary emphysema. 3. There pituitary lesions in both upper lobes concerning for perhaps fungal disease or tuberculosis. Neoplasm cannot entirely be excluded. 4. Left pleural effusion including fluid in the fissure. 5. Airspace disease in the left upper lobe adjacent to the fissure and in the left base. Pneumonia versus atelectasis. 6. Hepatic lesion measuring 51 mm. Cannot exclude neoplasm. 7. Smaller hepatic lesions in the right lobe, possible hemangiomas. Cannot exclude neoplasm. Chest X-Ray 04/19/20 00:00 IMPRESSION: Extensive left-sided pneumonia. Other findings as described. copyright 2010 [employer]- All Rights Reserved EKG: Atrial Fibrillation All labs, radiographs, diagnostic studies and EKGs were personally reviewed: Yes In addition, reports of radiographic and diagnostic studies were read: Yes Assessment and Plan - Diagnosis (1) Acute respiratory failure with hypoxia Is this a current diagnosis for this admission?: Yes Plan: Maintain mechanical ventilation volume control rate of 15 tidal volume 500 FiO2 60% PEEP 5 Propofol for sedation ABG at 6 AM (2) New onset a-fib Is this a current diagnosis for this admission?: Yes Plan: Cardizem drip titrate to maintain a heart rate less than 110 Converted to normal sinus rhythm heart rate in the 70s (3) Pneumonia Qualifiers: Pneumonia type: due to Pseudomonas Laterality: right Lung location: upper lobe of lung Qualified Code(s): J15.1 - Pneumonia due to Pseudomonas Is this a current diagnosis for this admission?: Yes Plan: i sputum grew Pseudomonas on 04/15/2020 send tracheal aspirate for culture and Gram stain Continue cefepime Continue nebs every 6 hours Daily chest x-ray Critical Time Critical Time (minutes): 70 Level of Care: ICU -: 1. The care of a critical patient is a dynamic process. This note is a sales donor recruitment representative synopsis but static in nature. The timeframe for treatments given in order is not necessarily the actual time these treatments may have been done. 2. This patient requires critical care secondary to ongoing requirements for therapy not offered or safe outside the critical care environment. Transfer to a lower level of care will result in altered life or limb morbidity and mortality. 3. Multidisciplinary rounds completed. 4. ABCDE bundle addressed.
--- NOTE | 2020-04-19 05:25 | Operative Report ---
Bedside Procedure - History of Present Illness Indication for Procedure: Respiratory failure Date: 04/19/20 Provider: PARIS LUCAS - Additional Procedures Intubation Time performed: 03:40 Notes: Endotracheal intubation Indication: Respiratory failure Provider: GLADYS Ferrari The patient was placed in a flat position. Sedation was obtained using etomidate 5 mg. The patient was easily ventilated using an Ambu bag. The MAC 4 blade was used and inserted into the oropharynx at which time there was a grade 1 view of the vocal cords. A 7.5 cm endotracheal tube was inserted and visualized passing through the vocal cords. The stylette was removed. Colorimetric change was visualized on the CO2 meter. Breath sounds were heard in both lung bond equally. The endotracheal tube was placed at 23 cm at the teeth. Chest x-ray was ordered to assess for correct placement.
[2020-04-19 05:26] LABS: ABSOLUTE LYMPHOCYTES# (MANUAL) 1.8 10^3/uL (0.5-4.7); ABSOLUTE MONOCYTES # (MANUAL) 4.9 10^3/uL (0.1-1.4); ANION GAP 11 (5-19); BAND NEUTROPHILS % (MANUAL) 9 % (3-5); BASOPHILS % (MANUAL) 0 % (0-2); BLOOD UREA NITROGEN 40 mg/dL (7-20); CALCIUM 9.2 mg/dL (8.4-10.2); CARBON DIOXIDE 18 mmol/L (22-30); CHLORIDE 107 mmol/L (98-107); EOSINOPHILS % (MANUAL) 0 % (0-6); GLUCOSE 84 mg/dL (75-110); LYMPHOCYTES % (MANUAL) 5 % (13-45); MONOCYTES % (MANUAL) 14 % (3-13); POTASSIUM 4.4 mmol/L (3.6-5.0); SEGMENTED NEUTROPHILS % (MAN) 72 % (42-78); TOTAL CELLS COUNTED 100
[2020-04-19 05:27] LABS: ANISOCYTOSIS 1+; PLATELET COMMENT ADEQUATE; POLYCHROMASIA 1+
[2020-04-19] MEDS ORDERED: ALBUMIN HUMAN 12.5 GM/50 ML RTUINJ IV ONE (05:49)
[2020-04-19] MEDS ORDERED: NOREPINEPHRINE BITARTRATE INJ/PF 4 MG/4 ML SDV IV ONE (05:57)
[2020-04-19] MEDS: DEXTROSE 5%-WATER 250 ML with NOREPINEPHRINE BITARTRATE 4 MG IV PRN ×6 (05:59→23:09)
[2020-04-19] MEDS ORDERED: NORMAL SALINE 1000 ML 1,000 ML IV ONE ×2 (06:00→22:28)
[2020-04-19 06:34] LABS: ARTERIAL BLOOD BASE EXCESS -21.8 mmol/L; ARTERIAL BLOOD H2CO3 2.36 mmol/L (1.05-1.35); ARTERIAL BLOOD HCO3 13.1 mmol/L (20-24); ARTERIAL BLOOD O2 SATURATION 69.3 % (94-98); ARTERIAL BLOOD PO2 63.1 mmHg (80-100); ARTERIAL BLOOD TOTAL CO2 15.5 mmol/L (23-27)
[2020-04-19 06:36] LABS: ARTERIAL BLOOD FIO2 60%
[2020-04-19 06:37] LABS: ARTERIAL BLOOD PCO2 78.5 mmHg (35-45); ARTERIAL BLOOD PH 6.84 (7.35-7.45)
[2020-04-19] MEDS ORDERED: SODIUM BICARBONATE 8.4% INJ 50 MEQ/50 ML DISP.SYRIN IV ONE (06:42)
[2020-04-19] MEDS ORDERED: SODIUM BICARBONATE 8.4% INJ 50 MEQ/50 ML DISP.SYRIN ONE ×3 (06:43→09:26)
[2020-04-19] MEDS ORDERED: TOBRAMYCIN SULFATE INJ 80 MG/2 ML VIAL NEB SCH (08:00)
[2020-04-19 08:21] LABS: ARTERIAL BLOOD BASE EXCESS -12.3 mmol/L; ARTERIAL BLOOD H2CO3 1.57 mmol/L (1.05-1.35); ARTERIAL BLOOD HCO3 16.9 mmol/L (20-24); ARTERIAL BLOOD O2 SATURATION 91.5 % (94-98); ARTERIAL BLOOD PCO2 52.3 mmHg (35-45); ARTERIAL BLOOD PO2 79.7 mmHg (80-100); ARTERIAL BLOOD TOTAL CO2 18.5 mmol/L (23-27)
[2020-04-19 08:22] LABS: ARTERIAL BLOOD FIO2 100%; ARTERIAL BLOOD PH 7.13 (7.35-7.45)
[2020-04-19] MEDS ORDERED: PANTOPRAZOLE SODIUM 40 MG VIAL IV SCH (10:00)
[2020-04-19] MEDS ORDERED: DEXMEDETOMIDINE IN 0.9 % NACL 400 MCG/100 ML RTUPB IV ONE (10:17)
--- NOTE | 2020-04-19 10:58 | Operative Report ---
Bedside Procedure - History of Present Illness History of Present Illness: TRACIE ETIENNE is a 74 year old male with a past medical history notable for COPD, tobacco dependence with continuous use, resting tremor, and remote alcohol dependence (greater than 1 year sobriety) who presents to the emergency department today with a complaint of 3 to 4 days progressively worsening shaking chills and worsening tremor that is exacerbated by activity. He notes a wet sounding cough but without sputum production. Evaluation in the emergency department revealed sepsis with Tachycardia (HR 130), tachypnea (RR 29), hypoxia on room air, leukocytosis (WBC is 16, lymphocytes 5), mild hyponatremia (NA 130) and lactic acidosis (4.7) with chest x-ray demonstrating a right upper lobe consolidation. Patient is provided IV fluid resuscitation per sepsis guidelines IV Zosyn and azithromycin. He is referred to the hospitalist service for admission management of the above- stated complaints and findings. Indication for Procedure: Administration of vasoactive agents; frequent blood draws; CVP monitoring Date: 04/19/20 Provider: EUGENE RODRIGUEZ - Central Line Right Internal jugular Time completed: 10:55 Consent obtained: Yes Central line pre-insertion: Sterile PPE donned, Chloraprep applied, Sterile drapes applied Central line lumen type: Triple Anesthetic type: 1% Lidocaine mL's of anesthesia: 5 Ultrasound guided: Yes CM at insertion site: 18 Line secured with sutures: Yes Central line post-insertion: Blood return from lumens, Biopatch applied, Sutured, Sterile dressing applied, Position confirmed w/ CXR Number of attempts: 1 Complications: No Notes: Internal Jugular Central Line Procedure Note INDICATION: Administration of vasoactive agents; frequent blood draws; CVP monitoring PROCEDURE CLIENT REPORTING ASSOCIATE: Marli Rodriguez MD CONSENT: The procedure was performed emergently and the permission was implied because of the emergent nature. PROCEDURE SUMMARY: A time out was performed. My hands were washed immediately prior to the procedure. I wore a surgical cap, mask with protective eyewear, full gown and sterile gloves throughout the procedure. The patient was placed in Trendelenburg position. RIGHT chest and neck region was prepped using chlorhexidine scrub and draped in sterile fashion using a full drape and sterile probe cover employed. The medial and lateral heads of the sternocleidomastoid muscle were identified as was the carotid pulse. The right INTERNAL JUGULAR VEIN was identified using the ultrasound. Anesthesia was achieved over the vein using 1% lidocaine. Using real-time out of plane guidance, the introducer needle was inserted into the Internal Jugular vein under direct ultrasound visualization. Venous blood was withdrawn. The syringe was removed and a guidewire was advanced into the introducer needle. The guidewire was visualized in the Internal Jugular Vein by ultrasound. A small incision was made at the skin surface with a scalpel and the introducer needle was exchanged for a dilator over the guidewire. After appropriate dilation was obtained, the dilator was exchanged over the wire for a central venous catheter. The wire was removed and the catheter was sutured in place at 18 cm. A sterile Tegaderm was placed over the catheter at the insertion site. The patient tolerated the procedure without any hemodynamic compromise. At time of procedure completion, all ports aspirated and flushed properly. Post- procedure chest x-ray is pending at this time. Estimated blood loss is 2 mL. 04/19/20 10:55
--- NOTE | 2020-04-19 11:42 | RADIOLOGY REPORT (SQ) ---
EXAM DESCRIPTION: CHEST SINGLE VIEW IMAGES COMPLETED DATE/TIME: 04/19/2020 11:26 am REASON FOR STUDY: CENTRAL LINE PLACEMENT COMPARISON: 04/19/2020 0410 hours EXAM PARAMETERS: NUMBER OF VIEWS: One view. TECHNIQUE: Single frontal radiographic view of the chest acquired. RADIATION DOSE: NA LIMITATIONS: None. FINDINGS: LUNGS AND PLEURA: Extensive parenchymal opacities left greater than right stable. MEDIASTINUM AND HILAR STRUCTURES: No masses. Contour normal. HEART AND VASCULAR STRUCTURES: Heart normal in size. Normal vasculature. BONES: No acute findings. HARDWARE: ETT and NG tube unchanged. New venous access catheter via right IJ approach. Tip is at ca voatrial junction. No pneumothorax. OTHER: No other significant finding. IMPRESSION: New venous access catheter tip cavoatrial junction without pneumothorax. Otherwise stable appearance of the chest. TECHNICAL DOCUMENTATION: JOB ID: [id number] 2010 [employer]- All Rights Reserved Reading location - IP/workstation name: [email or web address]
[2020-04-19 11:50] LABS: VENOUS BLOOD BASE EXCESS -5.8 mmol/L; VENOUS BLOOD HCO3 21.1 mmol/L (20-32); VENOUS BLOOD PCO2 46.7 mmHg (35-63); VENOUS BLOOD PH 7.27 (7.30-7.42)
[2020-04-19] MEDS: DEXMEDETOMIDINE IN 0.9 % NACL 400 MCG/100 ML RTUPB IV PRN ×2 (11:50→21:32)
--- NOTE | 2020-04-19 11:53 | EKG REPORT ---
SEVERITY:- ABNORMAL ECG - ATRIAL FIBRILLATION WITH RAPID V-RATE BORDERLINE R WAVE PROGRESSION, ANTERIOR LEADS : Confirmed by: Selwyn Olvera MD 19-Apr-2020 11:52:59
[2020-04-19] MEDS ORDERED: NORMAL SALINE INJ/PF 0.9% 10 ML SDV IV PRN (12:38)
[2020-04-19] MEDS: METOPROLOL TARTRATE 25 MG TABLET PO SCH (13:15)
[2020-04-19] MEDS: FOLIC ACID 1 MG TABLET PO SCH (13:15)
[2020-04-19] MEDS: PRIMIDONE 50 MG TABLET PO SCH (13:17)
[2020-04-19] MEDS: DEXAMETHASONE SOD PHOSPHATE INJ 4 MG/1 ML VIAL IV SCH (13:17)
[2020-04-19] MEDS: NICOTINE 21 MG/24 HR PATCH.TD24 TD SCH (13:17)
[2020-04-19] MEDS: ENOXAPARIN SODIUM INJ 60 MG/0.6 ML DISP.SYRIN SUBCUT SCH ×2 (13:18→21:27)
[2020-04-19] MEDS: THIAMINE HCL 100 MG TABLET PO SCH (13:18)
[2020-04-19] MEDS: ASCORBIC ACID 500 MG TABLET PO SCH (13:19)
[2020-04-19] MEDS: CHOLECALCIFEROL (D3) 400 UNIT TABLET PO SCH (13:19)
[2020-04-19] MEDS: CEFEPIME HCL 2 GM in DEXTROSE 5%-WATER 50 ML IV SCH ×3 (13:22→21:33)
[2020-04-19] MEDS: TOBRAMYCIN SULFATE NEB 40 MG/ML 30 ML NEB SCH ×2 (13:26→19:57)
[2020-04-19 13:28] LABS: ARTERIAL BLOOD BASE EXCESS -10.6 mmol/L; ARTERIAL BLOOD H2CO3 1.61 mmol/L (1.05-1.35); ARTERIAL BLOOD HCO3 18.3 mmol/L (20-24); ARTERIAL BLOOD O2 SATURATION 80.2 % (94-98); ARTERIAL BLOOD PCO2 53.5 mmHg (35-45); ARTERIAL BLOOD PO2 56.2 mmHg (80-100)
[2020-04-19 13:29] LABS: ARTERIAL BLOOD FIO2 100%; ARTERIAL BLOOD PH 7.15 (7.35-7.45)
[2020-04-19] MEDS ORDERED: VASOPRESSIN INJ 20 UNIT/1 ML VIAL ONE (13:57)
[2020-04-19] MEDS: DEXTROSE 5%-WATER 250 ML with VASOPRESSIN 100 UNIT IV PRN ×2 (14:18)
[2020-04-19] MEDS: ALBUMIN HUMAN 12.5 GM/50 ML RTUINJ IV SCH ×4 (14:35→15:20)
[2020-04-19] MEDS ORDERED: FUROSEMIDE INJ/PF 20 MG/2 ML SDV IV SCH (15:00)
[2020-04-19] MEDS ORDERED: FENTANYL CITRATE INJ/PF 100 MCG/2 ML AMPUL IV ONE (15:15)
--- NOTE | 2020-04-19 15:50 | PDOC CRITICAL CARE PROG REPORT ---
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 ABG drawn and revealed Ph 7.38 PCO2 29.6 and a PO2 of 36.2. The last cxr was on 04/15 which showed severe emphysema and a RML infiltrate. I was asked by Dr Han to come evaluate patient. Upon my arrival patient had increased WOB, unable to speak in full sentences and was also in new onset afib rvr rate in the 160's. He had been given 15mg Cardizem on the floor and became hypotensive, but quickly rebounded. CTA of the chest and abdomen on 04/17/2020 showed bullous emphysema, pulmonary lesions in both upper lobes concerning for fungal disease or TB neoplasm cannot entirely be excluded, hepatic lesion measuring 51 mm. Given his bullous emphysema I was reluctant to start BiPAP on the floor and therefore transferred him to the ICU for further management. EKG obtained showed atrial fibrillation with a rate in the 160s. He was started on a Cardizem drip at 5 mg an hour, he maintained a blood pressure in the 1 teens. Chest x-ray showed a significant left middle and lower lobe infiltrate. Blood gas drawn at 0300 showed a pH of 7.19 PCO2 46.2 PO2 69.3 on 100% nonrebreather. At this time patient had agonal respirations and was unresponsive was therefore intubated with a 7.5 cm ETT 23 at the teeth. His heart rate after intubation was 100-119 with a systolic blood pressure in the 120s. At 5:02 AM he converted to normal sinus rhythm with a heart rate in the 70s. Reason for ICU Addmission:: End-stage COPD, hypoxemic respiratory failure - Medications: Medications reviewed and adjusted accordingly: Yes Vasopressors:: Norepinephrine/vasopressin Sedation:: Precedex/fentanyl Physical Exam Vital Signs: Temp Pulse Resp BP Pulse Ox 98.6 F 79 25 H 93/58 L 100 04/19/20 14:42 04/19/20 15:37 04/19/20 15:37 04/19/20 14:42 04/19/20 15:37 Pulse Oximeter Continuous Start: 04/15/20 13:14 Freq: RTQ4 Status: Complete Protocol: Document 04/19/20 03:40 ELENI (Rec: 04/19/20 05:43 ELENI [email or web address]) Pulse Oximetry Assessment Oxygen Delivery Method Mechanical Ventilator Fraction of Inspired Oxygen (FIO2) 60 Equipment Usage Equipment Standby Continuous SpO2 Machine # 1 Intake & Output 04/18/20 04/19/20 04/20/20 06:59 06:59 06:59 Intake Total 1645 2555 1434 Output Total 875 850 165 Balance 770 1705 1269 Weight 48.8 kg 48.9 kg 48.9 kg Weight/Height Weight 48.9 kg Height 1.75 m General appearance: PRESENT: thin, other - Pulmonary cachectic Head exam: PRESENT: atraumatic, normocephalic Eye exam: PRESENT: conjunctiva pink, EOMI, PERRLA. ABSENT: scleral icterus Mouth exam: PRESENT: moist, tongue midline Teeth exam: PRESENT: edentulous Neck exam: ABSENT: carotid bruit, JVD, lymphadenopathy, thyromegaly Respiratory exam: PRESENT: crackles, decreased breath sounds, rales, rhonchi. ABSENT: wheezes Cardiovascular exam: PRESENT: RRR. ABSENT: diastolic murmur, rubs, systolic murmur Pulses: PRESENT: normal dorsalis pedis pul GI/Abdominal exam: PRESENT: normal bowel sounds, soft. ABSENT: distended, guarding, mass, organolmegaly, rebound, tenderness Gentrourinary exam: PRESENT: indwelling catheter Extremities exam: PRESENT: full ROM, pedal edema, +1 edema. ABSENT: calf tenderness, clubbing Musculoskeletal exam: PRESENT: normal inspection. ABSENT: deformity Neurological exam: PRESENT: altered, CN II-XII grossly intact. ABSENT: motor sensory deficit Psychiatric exam: ABSENT: agitated, anxious Skin exam: PRESENT: other - Erythema and bruising of the bilateral upper extremities. Tubes/Lines: PRESENT: Endotracheal Tube, Central Line - Right IJ, Nasogastic Tube Laboratory/Radiographs Laboratory Results: 04/19/20 04:54 04/19/20 04:54 04/19/20 04/19/20 04/19/20 00:20 03:08 04:54 WBC 35.3 H* RBC 4.55 Hgb 15.1 Hct 45.2 MCV 99 H MCH 33.1 MCHC 33.3 RDW 14.3 H Plt Count 152 Seg Neutrophils % Not Reportable Carbonic Acid 0.89 L 1.39 H HCO3/H2CO3 Ratio 19:1 12:1 ABG pH 7.38 7.19 L* ABG pCO2 29.6 L 46.2 H ABG pO2 36.2 L* 69.3 L ABG HCO3 17.2 L 17.3 L ABG O2 Saturation 69.3 L 89.6 L ABG Base Excess -6.6 -10.7 VBG pH VBG pCO2 VBG HCO3 VBG Base Excess FiO2 100% 100% Sodium Potassium Chloride Carbon Dioxide Anion Gap BUN Creatinine Est GFR ( Amer) Glucose Lactic Acid Calcium 04/19/20 04/19/20 04/19/20 04:54 06:23 08:14 WBC RBC Hgb Hct MCV MCH MCHC RDW Plt Count Seg Neutrophils % Carbonic Acid 2.36 H 1.57 H HCO3/H2CO3 Ratio 5:1 10:1 ABG pH 6.84 L* 7.13 L* ABG pCO2 78.5 H* 52.3 H ABG pO2 63.1 L 79.7 L ABG HCO3 13.1 L 16.9 L ABG O2 Saturation 69.3 L 91.5 L ABG Base Excess -21.8 -12.3 VBG pH VBG pCO2 VBG HCO3 VBG Base Excess FiO2 60% 100% Sodium 135.5 L Potassium 4.4 Chloride 107 Carbon Dioxide 18 L Anion Gap 11 BUN 40 H Creatinine 0.89 Est GFR ( Amer) > 60 Glucose 84 Lactic Acid Calcium 9.2 04/19/20 04/19/20 04/19/20 11:00 11:45 12:50 WBC RBC Hgb Hct MCV MCH MCHC RDW Plt Count Seg Neutrophils % Carbonic Acid 1.61 H HCO3/H2CO3 Ratio 11:1 ABG pH 7.15 L* ABG pCO2 53.5 H ABG pO2 56.2 L ABG HCO3 18.3 L ABG O2 Saturation 80.2 L ABG Base Excess -10.6 VBG pH 7.27 L VBG pCO2 46.7 VBG HCO3 21.1 VBG Base Excess -5.8 FiO2 100% Sodium Potassium Chloride Carbon Dioxide Anion Gap BUN Creatinine Est GFR ( Amer) Glucose Lactic Acid 3.3 H Calcium 04/15/20 04/17/20 10:55 04:56 Troponin I < 0.012 NT-Pro-B Natriuret Pep 3360 H Impressions: Chest/Abdomen CTA 04/17/20 00:00 IMPRESSION: 1. There is no pulmonary embolus. There is no aortic aneurysm or dissection. 2. Pulmonary emphysema. 3. There pituitary lesions in both upper lobes concerning for perhaps fungal di sease or tuberculosis. Neoplasm cannot entirely be excluded. 4. Left pleural effusion including fluid in the fissure. 5. Airspace disease in the left upper lobe adjacent to the fissure and in the l eft base. Pneumonia versus atelectasis. 6. Hepatic lesion measuring 51 mm. Cannot exclude neoplasm. 7. Smaller hepatic lesions in the right lobe, possible hemangiomas. Cannot exclude neoplasm. Chest X-Ray 04/19/20 10:49 IMPRESSION: New venous access catheter tip cavoatrial junction without pneumothorax. Otherwise stable appearance of the chest. All labs, radiographs, diagnostic studies and EKGs were personally reviewed: Yes In addition, reports of radiographic and diagnostic studies were read: Yes Assessment and Plan - Diagnosis (1) Acute respiratory failure with hypoxia Is this a current diagnosis for this admission?: Yes Plan: Titrate later settings based on ABG results. PEEP 10. Albuterol/budesonide scheduled. (2) Septic shock due to Pseudomonas species Is this a current diagnosis for this admission?: Yes Plan: CVP monitoring. Norepinephrine/vasopressin for blood pressure support. (3) Pneumonia due to Pseudomonas aeruginosa Is this a current diagnosis for this admission?: Yes Plan: Change cefepime to 2 g IV every 8 hours. Add VIET 300 mg nebs every 12 hours. (4) Elevated brain natriuretic peptide (BNP) level Is this a current diagnosis for this admission?: Yes Plan: If the patient demonstrates elevated CVP, diuresis should be considered. 2D echo. The patient initially presented in atrial fibrillation; however, he is converted to a normal sinus rhythm at this time. Twelve-lead EKG. (5) Protein calorie malnutrition Is this a current diagnosis for this admission?: Yes Plan: Start tube feeds. (6) COVID-19 ruled out by laboratory testing Is this a current diagnosis for this admission?: Yes (7) Tobacco dependence Is this a current diagnosis for this admission?: Yes (8) Cavitary lesion of lung Is this a current diagnosis for this admission?: Yes (9) New onset a-fib Is this a current diagnosis for this admission?: Yes (10) Liver mass Is this a current diagnosis for this admission?: Yes Critical Time Critical Time (minutes): 90 Level of Care: ICU -: 1. The care of a critical patient is a dynamic process. This note is a civil rights representative synopsis but static in nature. The timeframe for treatments given in order is not necessarily the actual time these treatments may have been done. 2. This patient requires critical care secondary to ongoing requirements for therapy not offered or safe outside the critical care environment. Transfer to a lower level of care will result in altered life or limb morbidity and mortality. 3. Multidisciplinary rounds completed. 4. ABCDE bundle addressed.
[2020-04-19] MEDS ORDERED: FAMOTIDINE INJ/PF 20 MG/2 ML SDV IV SCH (17:00)
[2020-04-19] MEDS ORDERED: FUROSEMIDE INJ/PF 20 MG/2 ML SDV IV ONE (17:50)
[2020-04-19 18:33] LABS: ARTERIAL BLOOD BASE EXCESS -11.1 mmol/L; ARTERIAL BLOOD H2CO3 1.79 mmol/L (1.05-1.35); ARTERIAL BLOOD HCO3 18.9 mmol/L (20-24); ARTERIAL BLOOD O2 SATURATION 97.6 % (94-98); ARTERIAL BLOOD PCO2 59.6 mmHg (35-45); ARTERIAL BLOOD PO2 133.8 mmHg (80-100); ARTERIAL BLOOD TOTAL CO2 20.7 mmol/L (23-27)
[2020-04-19 18:34] LABS: ARTERIAL BLOOD FIO2 100%; ARTERIAL BLOOD PH 7.12 (7.35-7.45)
[2020-04-19] MEDS ORDERED: ALBUTEROL SULFATE 0.083% NEB 2.5 MG/3 ML AMPUL NEB PRN (18:37)
[2020-04-19] MEDS: ALBUTEROL SULFATE 0.083% NEB 2.5 MG/3 ML AMPUL NEB SCH (19:57)
[2020-04-19] MEDS: BUDESONIDE NEB 0.25 MG/2 ML AMPUL NEB SCH (19:57)
--- NOTE | 2020-04-19 20:00 | RADIOLOGY REPORT (SQ) ---
EXAM DESCRIPTION: VENOUS BILATERAL LOWER IMAGES COMPLETED DATE/TIME: 04/19/2020 7:45 pm REASON FOR STUDY: acute hypoxic resp failure; rule out DVT COMPARISON: None. TECHNIQUE: Grayscale and color images acquired of both lower extremity venous systems. Selected spec tral images acquired with additional compression and augmentation maneuvers. Images stored on PACS. LIMITATIONS: None. FINDINGS: RIGHT LEG COMMON FEMORAL AND FEMORAL: Normal phasicity, compression and augmentation. No visualized echogenic m aterial on patton scale. No defects on color images. POPLITEAL: Normal compression and augmentation. No visualized echogenic material on patton scale. No de fects on color images. CALF VESSELS: Normal compression and augmentation. No visualized echogenic material on patton scale. No defects on color image. GSV AND SSV: Acute thrombus is noted at the SSV. No evidence for thrombus at the visualized GSV. Th e GSV was not visualized at the knee. ANY DEEP VENOUS INSUFFICIENCY: Not evaluated. ANY EVIDENCE OF POPLITEAL CYST: No. LEFT LEG COMMON FEMORAL AND FEMORAL: Normal phasicity, compression and augmentation. No visualized echogenic m aterial on patton scale. No defects on color images. POPLITEAL: Normal compression and augmentation. No visualized echogenic material on patton scale. No de fects on color images. CALF VESSELS: Normal compression and augmentation. No visualized echogenic material on patton scale. No defects on color images. GSV AND SSV: Normal compression. No visualized echogenic material on patton scale. No defects on color images. ANY DEEP VENOUS INSUFFICIENCY: Not evaluated. ANY EVIDENCE POPLITEAL CYST: No. IMPRESSION: 1. Acute superficial venous thrombosis at the right small saphenous vein. 2. No sonographic evidence for deep vein thrombosis at the visualized veins of the bilateral lower extremities. TECHNICAL DOCUMENTATION: JOB ID: [id number] 2010 [employer]- All Rights Reserved Reading location - IP/workstation name: [email or web address]
[2020-04-19] MEDS: FENTANYL CITRATE INJ/PF 100 MCG/2 ML AMPUL IV PRN (21:25)
[2020-04-19] MEDS: METHYLPREDNISOLONE INJ 125 MG/2 ML SDV IV SCH ×2 (21:26→21:29)
[2020-04-19] MEDS: MIRTAZAPINE 15 MG TABLET PO SCH (21:26)
[2020-04-19] MEDS: FUROSEMIDE INJ/PF 20 MG/2 ML SDV IV SCH (21:28)
[2020-04-19] MEDS ORDERED: ALBUMIN HUMAN 500 ML IV ONE ×2 (22:29→22:43)
[2020-04-19] MEDS ORDERED: NORMAL SALINE 1000 ML 1,000 ML IV PRN (23:06)
[2020-04-20] MEDS: FENTANYL CITRATE INJ/PF 100 MCG/2 ML AMPUL IV PRN ×3 (01:14→08:05)
[2020-04-20] MEDS: ALBUTEROL SULFATE 0.083% NEB 2.5 MG/3 ML AMPUL NEB SCH ×4 (02:36→20:19)
[2020-04-20 05:11] LABS: ARTERIAL BLOOD BASE EXCESS -12.2 mmol/L; ARTERIAL BLOOD H2CO3 1.28 mmol/L (1.05-1.35); ARTERIAL BLOOD HCO3 15.5 mmol/L (20-24); ARTERIAL BLOOD O2 SATURATION 99.5 % (94-98); ARTERIAL BLOOD PCO2 42.6 mmHg (35-45); ARTERIAL BLOOD PO2 285.3 mmHg (80-100); ARTERIAL BLOOD TOTAL CO2 16.8 mmol/L (23-27)
[2020-04-20 05:16] LABS: HEMATOCRIT 27.8 % (37.9-51.0); MEAN CORPUSCULAR HEMOGLOBIN 33.3 pg (27.0-33.4); MEAN CORPUSCULAR HGB CONC 33.5 g/dL (32.0-36.0); MEAN CORPUSCULAR VOLUME 100 fl (80-97); RED BLOOD COUNT 2.79 10^6/uL (4.35-5.55); RED CELL DISTRIBUTION WIDTH 14.5 % (11.5-14.0); WHITE BLOOD COUNT 25.5 10^3/uL (4.0-10.5)
[2020-04-20 05:23] LABS: ANION GAP 8 (5-19); BLOOD UREA NITROGEN 57 mg/dL (7-20); CALCIUM 7.2 mg/dL (8.4-10.2); CARBON DIOXIDE 18 mmol/L (22-30); CHLORIDE 109 mmol/L (98-107); GLUCOSE 143 mg/dL (75-110); PHOSPHORUS 5.8 mg/dL (2.5-4.5); POTASSIUM 4.5 mmol/L (3.6-5.0)
[2020-04-20 05:26] LABS: ARTERIAL BLOOD FIO2 100%; ARTERIAL BLOOD PH 7.18 (7.35-7.45)
[2020-04-20 05:31] LABS: HEMOGLOBIN 9.3 g/dL (13.5-17.0)
[2020-04-20 05:32] LABS: PLATELET COUNT 51 10^3/uL (150-450)
[2020-04-20] MEDS: METHYLPREDNISOLONE INJ 125 MG/2 ML SDV IV SCH ×3 (05:35→21:12)
[2020-04-20] MEDS: CEFEPIME HCL 2 GM in DEXTROSE 5%-WATER 50 ML IV SCH ×3 (05:36→21:12)
[2020-04-20 05:37] LABS: ABSOLUTE LYMPHOCYTES# (MANUAL) 0.8 10^3/uL (0.5-4.7); BAND NEUTROPHILS % (MANUAL) 6 % (3-5); BASOPHILS % (MANUAL) 0 % (0-2); EOSINOPHILS % (MANUAL) 0 % (0-6); LYMPHOCYTES % (MANUAL) 3 % (13-45); MONOCYTES % (MANUAL) 4 % (3-13); SEGMENTED NEUTROPHILS % (MAN) 87 % (42-78); TOTAL CELLS COUNTED 100
[2020-04-20 05:38] LABS: ANISOCYTOSIS 1+; PLATELET COMMENT DECREASED; POLYCHROMASIA 1+
--- NOTE | 2020-04-20 05:58 | Operative Report ---
Bedside Procedure - History of Present Illness Indication for Procedure: Hemodynamic monitoring Date: 04/19/20 Provider: PARIS LUCAS - Additional Procedures Arterial Line Time performed: 21:37 Notes: Femoral arterial line Indication: Hemodynamic monitoring Provider: GLADYS Ferrari A timeout was completed verifying correct patient, procedure, and site. Patient's left groin was prepped and draped in sterile fashion. 1% lidocaine was used to anesthetize the area. An 18-gauge arrow needle was introduced into the femoral artery. The guidewire was then introduced through the needle. The catheter was threaded over the guidewire and the guidewire was removed with appropriate pulsatile blood return. The catheter was then sutured in place to the skin and a sterile dressing applied. Perfusion to the extremity distal to the point of the catheter insertion was checked and found to be adequate. Tolerated procedure well. EBL:<5 cc
[2020-04-20] MEDS: TOBRAMYCIN SULFATE NEB 40 MG/ML 30 ML NEB SCH ×2 (07:51→20:19)
[2020-04-20] MEDS ORDERED: SODIUM BICARBONATE 8.4% INJ 50 MEQ/50 ML DISP.SYRIN ONE (07:52)
[2020-04-20] MEDS: BUDESONIDE NEB 0.25 MG/2 ML AMPUL NEB SCH ×2 (07:52→20:19)
[2020-04-20] MEDS ORDERED: SODIUM BICARBONATE 8.4% INJ 50 MEQ/50 ML DISP.SYRIN IV ONE ×3 (08:30→17:45)
[2020-04-20] MEDS: ASCORBIC ACID 500 MG TABLET PO SCH (08:43)
[2020-04-20] MEDS: DEXTROSE 5%-WATER 1000 ML 1,000 ML with SODIUM BICARBONATE 150 MEQ IV PRN ×2 (09:06)
[2020-04-20] MEDS ORDERED: FENTANYL CITRATE/PF 600 MCG/60 ML BAG IV PRN (09:09)
[2020-04-20] MEDS: NICOTINE 21 MG/24 HR PATCH.TD24 TD SCH (09:11)
[2020-04-20] MEDS: DEXMEDETOMIDINE IN 0.9 % NACL 400 MCG/100 ML RTUPB IV PRN (09:12)
[2020-04-20] MEDS: DEXTROSE 5%-WATER 250 ML with NOREPINEPHRINE BITARTRATE 4 MG IV PRN ×4 (09:12→22:41)
[2020-04-20] MEDS: PRIMIDONE 50 MG TABLET PO SCH (09:14)
[2020-04-20] MEDS ORDERED: PANTOPRAZOLE SODIUM 40 MG VIAL IV SCH (10:00)
[2020-04-20 10:25] LABS: ARTERIAL BLOOD BASE EXCESS -10.3 mmol/L; ARTERIAL BLOOD H2CO3 1.21 mmol/L (1.05-1.35); ARTERIAL BLOOD HCO3 16.6 mmol/L (20-24); ARTERIAL BLOOD O2 SATURATION 99.6 % (94-98); ARTERIAL BLOOD PCO2 40.2 mmHg (35-45); ARTERIAL BLOOD PH 7.23 (7.35-7.45); ARTERIAL BLOOD PO2 302.1 mmHg (80-100); ARTERIAL BLOOD TOTAL CO2 17.8 mmol/L (23-27)
[2020-04-20 10:26] LABS: ARTERIAL BLOOD FIO2 100%
[2020-04-20 11:04] LABS: HEPATITIS C VIRUS ANTIBODY >11.0 s/co ratio (0.0-0.9)
[2020-04-20 11:27] LABS: ARTERIAL BLOOD BASE EXCESS -10.5 mmol/L; ARTERIAL BLOOD FIO2 100%; ARTERIAL BLOOD H2CO3 1.23 mmol/L (1.05-1.35); ARTERIAL BLOOD HCO3 16.6 mmol/L (20-24); ARTERIAL BLOOD O2 SATURATION 99.6 % (94-98); ARTERIAL BLOOD PCO2 40.8 mmHg (35-45); ARTERIAL BLOOD PH 7.23 (7.35-7.45); ARTERIAL BLOOD PO2 287.6 mmHg (80-100); ARTERIAL BLOOD TOTAL CO2 17.8 mmol/L (23-27)
[2020-04-20 11:38] LABS: AMORPHOUS SEDIMENT,URINE TRACE /HPF; APPEARANCE,URINE CLOUDY; BILIRUBIN,URINE NEGATIVE (NEGATIVE); COLOR,URINE AMBER; GLUCOSE, URINE NEGATIVE (NEGATIVE); KETONES,URINE NEGATIVE (NEGATIVE); PROTEIN,URINE 30 mg/dL (NEGATIVE); URINE SPECIFIC GRAVITY 1.015; UROBILINOGEN,URINE NEGATIVE mg/dL (<2.0)
[2020-04-20] MEDS ORDERED: ACETAMINOPHEN SOLN 325 MG/10.15 ML UDCUP ONE (15:17)
[2020-04-20 16:24] LABS: ARTERIAL BLOOD BASE EXCESS -9.8 mmol/L; ARTERIAL BLOOD FIO2 60%; ARTERIAL BLOOD H2CO3 1.77 mmol/L (1.05-1.35); ARTERIAL BLOOD HCO3 19.5 mmol/L (20-24); ARTERIAL BLOOD O2 SATURATION 83.6 % (94-98); ARTERIAL BLOOD PCO2 58.8 mmHg (35-45); ARTERIAL BLOOD PO2 61.8 mmHg (80-100); ARTERIAL BLOOD TOTAL CO2 21.3 mmol/L (23-27)
[2020-04-20 16:28] LABS: ARTERIAL BLOOD PH 7.14 (7.35-7.45)
[2020-04-20 16:31] LABS: ARTERIAL BLOOD BASE EXCESS -10.2 mmol/L; ARTERIAL BLOOD H2CO3 1.78 mmol/L (1.05-1.35); ARTERIAL BLOOD HCO3 19.1 mmol/L (20-24); ARTERIAL BLOOD PCO2 59.3 mmHg (35-45); ARTERIAL BLOOD TOTAL CO2 20.9 mmol/L (23-27)
[2020-04-20 16:32] LABS: ARTERIAL BLOOD FIO2 60%
[2020-04-20 16:33] LABS: ARTERIAL BLOOD PH 7.13 (7.35-7.45); ARTERIAL BLOOD PO2 37.2 mmHg (80-100)
[2020-04-20 16:34] LABS: ARTERIAL BLOOD O2 SATURATION 53.3 % (94-98)
[2020-04-20] MEDS: ACETAMINOPHEN SOLN 325 MG/10.15 ML UDCUP PO PRN (16:35)
[2020-04-20 16:45] LABS: ANION GAP 10 (5-19); BLOOD UREA NITROGEN 73 mg/dL (7-20); CARBON DIOXIDE 21 mmol/L (22-30); CHLORIDE 104 mmol/L (98-107); GLUCOSE 170 mg/dL (75-110); POTASSIUM 4.8 mmol/L (3.6-5.0)
[2020-04-20] MEDS ORDERED: MILRINONE LACTATE/D5W 20 MG/100 ML RTUINJ IV PRN (16:53)
[2020-04-20] MEDS: MAGNESIUM SULFATE/D5W 1 GM/100 ML RTUPB IV SCH ×2 (20:08→21:11)
[2020-04-20] MEDS ORDERED: FUROSEMIDE INJ/PF 40 MG/4 ML SDV IV ONE (20:28)
--- NOTE | 2020-04-20 20:55 | RADIOLOGY REPORT (SQ) ---
INDICATION: bilateral hand/finger purpura. PROCEDURE: Real-time grayscale, color, and pulse Doppler ultrasound imaging of the bilateral upper extremity deep venous system was performed. 47 images. COMPARISON: None FINDINGS: The subclavian, axillary, and brachial veins demonstrate normal compressibility, phasic flow, augmentation and patton scale evaluation. There is no evidence of intraluminal thrombus . The visualized deep veins of the forearms appear patent. IMPRESSION: No evidence for acute deep venous thrombus from the subclavian through forearm veins.
--- NOTE | 2020-04-20 21:03 | XCELERA REPORT ---
[address] [address] Transthoracic Echocardiogram Report Name: TRACIE ETIENNE Age: 74 yrs Gender: Male : 1945 Patient Status: Inpatient Patient Location: ICU^607^A Study Date: 04/20/2020 06:59 PM History: Shock Height: 69 in Weight: 121 lb BSA: 1.7 m2 Procedure: A complete two-dimensional transthoracic echocardiogram was performed (2D, M-mode, spectral and color flow Doppler). The study was technically difficult with many images being suboptimal in quality. Reason For Study: shock, elevated BNP Previous Evaluation: No previous studies were available. History: Shortness of breath. CHF. Ordering Physician: EUGENE ROBLES Performed By: Marixa Hoffmann Interpretation Summary The Ejection Fraction estimate is 55-60% Left ventricular systolic function is normal. The right ventricle is normal in size and function. There is a trace amount of mitral regurgitation There is no aortic valve stenosis There is a moderate amount of tricuspid regurgitation There is moderate pulmonary hypertension by echo There is no pericardial effusion. MMode/2D Measurements & Calculations RVDd: 1.9 cm LVIDd: 3.9 cm FS: 28.9 % Ao root diam: 2.4 cm IVSd: 0.65 cm LVIDs: 2.7 cm EDV(Teich): 64.1 ml Ao root area: 4.7 cm2 LVPWd: 0.73 cm ESV(Teich): 28.0 ml LA dimension: 2.5 cm EF(Teich): 56.3 % Doppler Measurements & Calculations MV E max pgegy: MV P1/2t max peggy: Ao V2 max: LV V1 max P.1 cm/sec 105.7 cm/sec 157.1 cm/sec 5.2 mmHg MV A max peggy: MV P1/2t: 46.7 msec Ao max PG: LV V1 max: 100.2 cm/sec MVA(P1/2t): 4.7 cm2 9.9 mmHg 114.5 cm/sec MV E/A: 1.1 MV dec slope: 663.4 cm/sec2 MV dec time: 0.15 sec PA V2 max: PI end-d peggy: TR max peggy: MV P1/2t-pr_phl: 114.5 cm/sec 149.3 cm/sec 363.8 cm/sec 46.7 msec PA max P.2 mmHg TR max P.9 mmHg Left Ventricle The left ventricle is grossly normal size. There is normal left ventricular wall thickness. The Ejection Fraction estimate is 55-60%. Left ventricular systolic function is normal. Doppler measurements suggest pseudonormalized left ventricular relaxation, which is associated with grade II/IV or mild to moderate diastolic dysfunction. Regional wall motion abnormalities cannot be excluded due to limited visualization. Right Ventricle The right ventricle is normal in size and function. Atria The right atrium is normal. The left atrial size is normal. Mitral Valve Calcified mitral apparatus. There is no vegetation seen on the mitral valve. There is no mitral valve stenosis. There is a trace amount of mitral regurgitation. Aortic Valve The aortic valve is not well visualized secondary to technical limitations. The aortic valve opens well. There is no aortic valve stenosis. Tricuspid Valve Calcified nodule possibly on nomn-septal leaflet which looks possibly flail. There is a moderate amount of tricuspid regurgitation. Right ventricular systolic pressure is estimated to be elevated at 50-60mmHg. There is moderate pulmonary hypertension by echo. Pulmonic Valve The pulmonic valve is normal in structure and function. There is a trace or physiologic amount of pulmonic regurgitation. Great Vessels The aortic root is normal size. The IVC is dilated and has no respiratory collapse suggesting significantly high central venous pressures. Effusions There is no pericardial effusion. : EUGENE ROBLES Anil
[2020-04-20] MEDS: MIRTAZAPINE 15 MG TABLET PO SCH (21:12)
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
[2020-04-21] MEDS: ACETAMINOPHEN SOLN 325 MG/10.15 ML UDCUP PO PRN (01:53)
[2020-04-21] MEDS: DEXTROSE 5%-WATER 1000 ML 1,000 ML with SODIUM BICARBONATE 150 MEQ IV PRN ×2 (01:53)
[2020-04-21] MEDS: DEXTROSE 5%-WATER 250 ML with VASOPRESSIN 100 UNIT IV PRN ×2 (01:54)
[2020-04-21] MEDS: ALBUTEROL SULFATE 0.083% NEB 2.5 MG/3 ML AMPUL NEB SCH (02:36)
[2020-04-21 05:13] LABS: ANION GAP 18 (5-19); BLOOD UREA NITROGEN 79 mg/dL (7-20); CALCIUM 7.2 mg/dL (8.4-10.2); CARBON DIOXIDE 17 mmol/L (22-30); CHLORIDE 100 mmol/L (98-107); GLUCOSE 194 mg/dL (75-110); POTASSIUM 5.6 mmol/L (3.6-5.0)
[2020-04-21] MEDS: CEFEPIME HCL 2 GM in DEXTROSE 5%-WATER 50 ML IV SCH (05:17)
[2020-04-21] MEDS: METHYLPREDNISOLONE INJ 125 MG/2 ML SDV IV SCH (05:17)
[2020-04-21 05:22] LABS: PREALBUMIN < 3.0 mg/dL (17.6-36.0)
[2020-04-21 05:52] LABS: HEMOGLOBIN 9.4 g/dL (13.5-17.0); MEAN CORPUSCULAR HEMOGLOBIN 32.7 pg (27.0-33.4); MEAN CORPUSCULAR HGB CONC 31.4 g/dL (32.0-36.0); RED BLOOD COUNT 2.87 10^6/uL (4.35-5.55); RED CELL DISTRIBUTION WIDTH 15.1 % (11.5-14.0)
[2020-04-21 06:31] LABS: WHITE BLOOD COUNT 31.7 10^3/uL (4.0-10.5)
[2020-04-21 06:33] LABS: MEAN CORPUSCULAR VOLUME 104 fl (80-97)
[2020-04-21 06:34] LABS: PLATELET COUNT 29 10^3/uL (150-450)
[2020-04-21 06:35] LABS: ABSOLUTE LYMPHOCYTES# (MANUAL) 1.3 10^3/uL (0.5-4.7); ABSOLUTE MONOCYTES # (MANUAL) 1.3 10^3/uL (0.1-1.4); ANISOCYTOSIS SLIGHT; BASOPHILS % (MANUAL) 0 % (0-2); BURR CELLS SLIGHT; EOSINOPHILS % (MANUAL) 0 % (0-6); LYMPHOCYTES % (MANUAL) 4 % (13-45); MONOCYTES % (MANUAL) 4 % (3-13); NUCLEATED RED BLOOD CELLS 5 /100 WBC (0); POLYCHROMASIA SLIGHT; SEGMENTED NEUTROPHILS % (MAN) 92 % (42-78); TEAR DROP CELLS SLIGHT; TOTAL CELLS COUNTED 100
[2020-04-21 06:36] LABS: PLATELET COMMENT DECREASED
[2020-04-21] MEDS: DEXTROSE 5%-WATER 250 ML with NOREPINEPHRINE BITARTRATE 4 MG IV PRN ×2 (07:15)
[2020-04-21 07:55] VITALS: BP 29/19
--- NOTE | 2020-04-21 08:01 | Progress Note ---
Provider Note Provider Note: Events of past 24 hours were noted. Patient was changed to DNR status due to his known metastatic lung cancer and wishes as discussed with his PIETROAKevin. Patient remained on ventilator, but heart rate and BP slowly decreased. I was asked to pronounce. Patient unresponsive to verbal and tactile stimuli. Pupils fixed and dilated. No heart sounds, no breath sounds. Patient was pronounced at 7:58 am. Mr. Gilbert Pink was contacted. He will contact POAKevin, as the number I have was disconnected.
[2020-04-21 12:30] LABS: PATH REVIEW PATHOLOGIST REVIEWED
[2020-04-21 12:34] LABS: PATH REVIEW PATHOLOGIST REVIEWED
--- NOTE | 2020-04-22 13:26 | Death Summary ---
Summary Date : 04/21/20 Time of :: 07:58 Autopsy: No Resuscitation Status: Do Not Resuscitate Consulting Provider: Maria T Guillory. - Final Diagnosis (1) Acute respiratory failure with hypoxia Is this a current diagnosis for this admission?: Yes (2) COPD (chronic obstructive pulmonary disease) Is this a current diagnosis for this admission?: Yes (3) COVID-19 ruled out by laboratory testing Is this a current diagnosis for this admission?: Yes (4) Cavitary lesion of lung Is this a current diagnosis for this admission?: Yes (6) Hepatic lesion Is this a current diagnosis for this admission?: Yes (7) New onset a-fib Is this a current diagnosis for this admission?: Yes Hospital Course:: This patient was a 74 yo man with multiple comorbidities including St 4 lung cancer. He was admitted with SOB likely from a COPD exarcerbation made worse by a cavitary PNA, possibly a cancer and infiltrate in his OSVALDO, LLL and RUL. Despite treatment on the regular medical floor he worsened and needed intubation. He alsop was found to be in atrial fibrillation, RVR. This converted to NSR after intubation. While in the ICU his POA was contacted and in detailed discussion he was made a DNR status. He did not rally and peacefully at 07:58 AM on April 21, 2020.
== END 2020-04-21 07:58 | DRG 871 ==
LOC: ER 10:20 → EH 13:07 → 3N 15:06 → 3S 04-17 12:30 → 3W 04-17 16:35 → 3S 04-17 16:38 → ICU 04-19 01:26
PROVIDERS: ADMIT Hospitalist; ATTEND Internal Medicine Critical Care Medicine
PROC: 0BH17EZ Insertion of Endotracheal Airway into Trachea, Via Natural or Artificial Opening (ICD-10-PCS; principal; 2020-04-19)
PROC: 5A1945Z Respiratory Ventilation, 24-96 Consecutive Hours (ICD-10-PCS; 2020-04-19)
PROC: 02HV33Z Insertion of Infusion Device into Superior Vena Cava, Percutaneous Approach (ICD-10-PCS; 2020-04-19)
PROC: B548ZZA Ultrasonography of Superior Vena Cava, Guidance (ICD-10-PCS; 2020-04-19)
PROC: 04HY32Z Insertion of Monitoring Device into Lower Artery, Percutaneous Approach (ICD-10-PCS; 2020-04-19)
DX: A41.52 Sepsis due to Pseudomonas (principal); J96.01 Acute respiratory failure with hypoxia; J15.1 Pneumonia due to Pseudomonas; R65.21 Severe sepsis with septic shock; E43 Unspecified severe protein-calorie malnutrition; G92 Toxic encephalopathy; R44.3 Hallucinations, unspecified; C34.90 Malignant neoplasm of unspecified part of unspecified bronchus or lung; C79.9 Secondary malignant neoplasm of unspecified site; I48.91 Unspecified atrial fibrillation; J43.9 Emphysema, unspecified; D69.6 Thrombocytopenia, unspecified; Z66 Do not resuscitate; K70.10 Alcoholic hepatitis without ascites; K76.9 Liver disease, unspecified; J98.4 Other disorders of lung; R41.0 Disorientation, unspecified; F17.210 Nicotine dependence, cigarettes, uncomplicated; Z20.828 Contact with and (suspected) exposure to other viral communicable diseases; Z78.1 Physical restraint status
CPT/HCPCS: 31500; 36415; 36556; 36600; 36620; 71045; 71275; 80048; 80053; 80074; 81001; 82330; 82728; 82803; 82962; 83605; 83615; 83735; 83880; 84100; 84134; 84484; 85025; 85027; 85379; 85610; 85730; 86140; 87015; 87040; 87070; 87077; 87101; 87116; 87186; 87205; 87206; 87635; 93005; 93010; 93306; 93970; 94002; 94003; 94640; 94762; 94799; 96365; 96367; 99291; 99292; C9113; C9803; J0456; J0692; J0696; J1100; J1160; J1642; J1644; J1650; J1885; J1940; J2060; J2260; J2543; J2704; J2930; J3010; J3260; J3475; J3490; J7030; J7060; P9041; P9047